=== PATIENT | male | born 1965 | race Caucasian/White ===

== ENCOUNTER 2023-11-11 12:36 | Outpatient (CLI) | payer BC, SELFPAY ==
--- NOTE | 2023-11-11 12:44 | XR_ITS ---
FINAL REPORT CLINICAL HISTORY: Foot Pain COMPARISON: None FINDINGS: AP, oblique and lateral views of the right foot were obtained. There is no prior exam for comparison. There is no acute fracture or dislocation. There are side plates and screws bridging the first metatarsal phalangeal joint. The joint space is visible at this point. Soft tissue swelling is noted. Soft tissues are normal. IMPRESSION: Postoperative changes of the right first metatarsal phalangeal joint as described above. Soft tissue swelling is present. Reviewed, Interpreted and Dictated by Tomas Brown MD Transcribed by Emilia Rosales Authenticated and [facility]
--- NOTE | 2023-11-11 12:44 | XR_ITS ---
FINAL REPORT CLINICAL HISTORY: Foot Pain COMPARISON: None FINDINGS: AP, oblique and lateral views of the left foot were obtained. There is no prior exam for comparison. There is no acute fracture or dislocation. There is moderate hypertrophic change of the first metatarsal phalangeal joint. Soft tissues are normal. IMPRESSION: No acute osseous abnormality of the left foot. Moderate hypertrophic change of the first MTP joint. Reviewed, Interpreted and Dictated by Tomas Brown MD Transcribed by Emilia Rosales Authenticated and [facility]
--- NOTE | 2023-11-11 15:26 | XR_ITS ---
FINAL REPORT TECHNIQUE: Chest PA & Lateral CLINICAL HISTORY: Pre-Op Testing COMPARISON: None FINDINGS: 2 views of the chest were performed. The heart size is normal. The mediastinum is within normal limits. There is no acute cardiopulmonary process. There are no pleural effusions. There is no pneumothorax. The bony thorax appears intact. IMPRESSION: No acute cardiopulmonary process. Reviewed, Interpreted and Dictated by Tomas Brown MD Transcribed by Emilia Rosales Authenticated and . [facility]
[2023-11-11 15:30] LABS: Basophils % 0.5 % (0.1-2.0); Eosinophils # 0.2 K/mm3 (0.0-0.4); Eosinophils % 3.9 % (0.1-12.0); Hematocrit 41.8 % (42.0-52.0); Hemoglobin 14.8 g/dL (14.1-18.0); Lymphocytes # 1.6 K/mm3 (0.7-4.5); Lymphocytes % 27.4 % (10-50); Mean Corpuscular HGB Conc 35.3 g/dL (31.8-35.4); Mean Corpuscular Volume 84.9 fl (80-94); Mean Platelet Volume 8.7 fl (7.4-10.4); Monocytes # 0.3 K/mm3 (0.1-1.0); Monocytes % 5.4 % (1.7-9.3); Neutrophils # 3.7 K/mm3 (1.8-7.8); Neutrophils % 62.8 % (37.0-80.0); Platelet Count 286 K/mm3 (142-424); Red Blood Count 4.92 M/mm3 (4.60-6.20); Red Cell Distribution Width 14.3 % (11.5-17.5); White Blood Count 5.8 K/mm3 (4.8-10.8)
--- NOTE | 2023-11-11 16:01 | ECG_ITS ---
APPROVED REPORT Exam: Resting ECG HR:63 bpm ECG Measurements Heart Rate 63 AXES PA 170 P 53 QRSd 106 QRS 35 QT 418 T 52 QTc 425 Conclusion SINUS RHYTHM LOW QRS VOLTAGE IN PRECORDIAL LEADS [QRS DEFLECTION < 1.0 mV IN CHEST LEADS] INCOMPLETE RIGHT BUNDLE BRANCH BLOCK [90+ ms QRS DURATION, TERMINAL R IN V1/V2, 40+ ms S IN I/aVL/V4/V5/V6] BORDERLINE ECG UNCONFIRMED REPORT Electronically signed by : Randolph Herrera MD 11/12/2023 20:10:09
[2023-11-11 16:26] LABS: Alanine Aminotransferase 30 U/L (12-78); Albumin Level 4.2 g/dl (3.5-5.0); Albumin/Globulin Ratio 1.2 (1.1-1.8); Alkaline Phosphatase 64 U/L (38-126); Anion Gap 9.5 mEq/L (5-15); Aspartate Amino Transferase 32 U/L (17-59); Bilirubin,Total 0.5 mg/dl (0.2-1.3); Blood Urea Nitrogen 18 mg/dl (9-20); Calcium 9.4 mg/dl (8.4-10.2); Carbon Dioxide 31 mmol/L (22.0-30.0); Chloride 102 mmol/L (98-107); Estimated Glomerular Filt Rate 76 ml/min (>60); GFR (African American) 92 ML/MIN (>60); Globulin 3.4 g/dL (1.3-3.2); Glucose 100 mg/dl (74-100); Potassium 4.5 mmoL/L (3.5-5.1); Sodium 138 mmol/L (136-145); Total Protein,Serum 7.6 g/dl (6.3-8.2); Uric Acid 5.6 mg/dl (3.5-8.5)
[2023-11-11 16:32] LABS: C-Reactive Protein 2.7 mg/L (0-4)
[2023-11-11 16:39] LABS: Erythrocyte Sedimentation Rate 22 mm/hr (0-20)
[2023-11-11 17:00] LABS: Thyroid Stimulating Hormone 1.68 uIU/mL (0.465-4.68)
[2023-11-11 17:36] LABS: Vitamin B12 746 pg/mL (239-931)
[2023-11-12 07:41] LABS: RA Latex Turbid. <10.0 IU/mL (<14.0)
[2023-11-12 17:34] LABS: Antinuclear Antibodies, IFA Negative (.)
[2023-11-18 19:08] LABS: 1,25 Dihydroxy Vitamin D 43 pg/mL (.); 1,25-Dihydroxy, Vitamin D-2 <10 pg/mL (.); 1,25-Dihydroxy, Vitamin D-3 43 pg/mL (.)
== END 2023-11-11 23:59 ==
PROVIDERS: PCP Family Medicine; Visit Provider Podiatrist
DX: Z01.818 Encounter for other preprocedural examination (principal); M79.672 Pain in left foot; M79.671 Pain in right foot; R60.9 Edema, unspecified
CPT/HCPCS: 36415; 71046; 73630; 80053; 82607; 82652; 82746; 84443; 84550; 85025; 85651; 86038; 86140; 86431; 93005

== ENCOUNTER 2023-11-28 10:59 | Day surgery (SDC) | payer BC, SELFPAY ==
[2023-11-26 10:35] VITALS: BMI 47.3
[2023-11-28] VITALS (9 sets, daily range): BP systolic 140–194; BP diastolic 60–84; PULSE 66–74; RESP 14–19; TEMP 35.9–37.3; O2SAT 92–100
[2023-11-28] MEDS: LACTATED RINGERS 1000ML 1,000 ML 100 ML IV (11:31)
--- NOTE | 2023-11-28 12:48 | P.PNANES_ITS ---
[facility] Disclaimer: The information contained in this section may have been updated after the patient was seen, as this information can be updated by other users. Medical History Sleep apnea Seasonal allergies Bipolar affect, depressed Acid reflux Arthritis Hyperlipidemia Hypertension Surgical History History of cardiac cath H/O colonoscopy History of esophagogastroduodenoscopy (EGD) H/O foot surgery H/O knee surgery Family History Grandfather Heart attack Mother Heart disease Father Cancer Sister Diabetes Brother Diabetes Grandmother Cancer Social History (Updated 11/28/23 @ 11:31 by Gayla Zhao RN) Smoking Status: Former smoker years smoked: 20 smoking status stop date: 11/14/05 alcohol intake: former substance use type: denies use current occupational status: disabled Travel in the last 8 weeks: None household members: spouse housing: house lives independently: Yes marital status: [facility] Anesthesia Checklist Patient Identification Patient Identification: Arm Band, Family and Verbal (Name & ) Structural Data Admitted From: Home Planned Operative Procedure/s: Removal of harware Rt. foot, bone biopsy Consent for Planned Operative Procedure(s) Verified: Yes Verified Documents: Surgical Consent and History and Physical NPO Status Verified Time NPO: 22:30 Chart Verification Results Verified: CBC, BMP, ECG and Chest Xray Additional verifications Patient : No Anesthesia Reactions: No Hx Blood Transfusions: No Blood Transfusion Reaction: No Cardiovascular Assessment Heart Sounds: S1 & S2 Pulse Rhythm: Irregular Peripheral Edema: Yes (RT. Foot) Airway Assessment Mallampati Score:: Class III C-Spine Mobility Assessed: Yes (FROM) TMJ Mobility Assessed: Yes Dentition: Good Dentition (Nothing loose per pt.) Neurological Assessment Level of Consciousness: Awake, Alert, Appropriate and Follows Commands Hx Seizures: No Numbness or tingling in extremities: No Anesthesia Plan Anesthesia Risk discussed: Yes Anesthesia Plan: Verified ASA Class: III Anesthesia Type: General
[2023-11-28] MEDS: BUPIVACAINE 0.5% 30ML VIAL 150 MG (13:18)
[2023-11-28] MEDS: VANCOMYCIN 1000MG VIAL 1000 MG (13:50)
[2023-11-28] MEDS: GENTAMICIN 80 MG/2 ML VIAL (13:50)
--- NOTE | 2023-11-28 14:06 | EXP.OP.NOTE ---
Date of procedure: 11/28/23 Pre-op Diagnosis:: Right first MTPJ fusion nonunion Right foot pain Painful retained orthopedic hardware Post-op Diagnosis:: Same Procedure performed:: Planned two staged surgery: Stage 1: Right foot hardware removal Right open bone biopsy Surgeon:: Ligia Walton DPM DEALER DEVELOPMENT MANAGER:: Other (Cindy Whitaker) Anesthesia: GETA and local (30cc 0.5% marcaine plain) Estimated blood loss (mL): 20 Clinical Note:: Patient is a 58-year-old male who presents for hard removal and open bone biopsy. He had surgery by Dr Buddy Daniel on 12/21/22: s/p R 1st MPJ arthrodesis revision for non-union. The site still has not fused. He has tried prolonged immobilization, medical optimization, revision of the nonunion, bone stimulator, vitamin D supplements and he still has not healed. Patient is not diabetic and does not smoke. Discussed the plan to do staged surgery. Stage I will include hard removal and bone biopsy. Stage II will depend on results of the biopsy. If no infection, plan second stage would include revision of the fusion nonunion with graft application. The patient has been instructed on the planned procedure, all risk versus benefits of the procedure to include bleeding, infection, nerve and blood vessel damage, need for further surgery, delay in healing of soft tissue or bone, failure of bones to heal, non-union, mal-union, prolonged/permanent pain and recovery, prolonged/permanent swelling, CRPS/RSD, DVT/PE and anesthetic complications including . Discussed increased risks of non-union, infection/wound dehiscence risk due to multiple surgeries thru the same incision. No guarantees were given. All questions fully answered. The patient verbalized understanding and agreed to proceed with surgery. Written consent was obtained. Operative findings:: Some fibrotic scar tissue noted. Patient has had 2 prior right foot surgeries to this area. [place] plate intact with 6 locking and 1 nonlocking screw. Plate and screws were removed in total without complication. There was some incorporation of a 5 mm [place] bone graft wedge. There was a partial union of the dorsal cortex at the level of the first MTPJ. The central and plantar aspect of the joint was not fused. There was no bleeding at this level. Bone was soft at the level of the graft and union site. The screw holes were harder bone and did not have any signs of infection. No purulence, malodor or deep signs of infection noted. Operative note:: On this date and time patient was deemed an appropriate surgical candidate. With informed consent signed, the patient was taken to the operating theater. The patient was positioned supine. General anesthesia was induced. Tourniquet was applied to the right mid-calf. The right lower extremity was prepped and drapped in normal sterile fashion. The tourniquet was inflated at 225mmHg. Right 1st MTPJ hardware removal: Attention was directed to the right 1st MPJ, where a dorsal linear incision was mapped out over the joint over previous scar tissue. Dissection was carried full-thickness, with care to maintain surgical hemostasis. The hardware was visualized. The screws and anatomic locking plate were removed and sent to the lab for culture. No signs of infection noted to the hardware. The soft tissue appeared healthy with no reyez or necrotic tissue noted. There was no purulence or malodor appreciated. No periwound erythema or palpable lymph nodes. Right Foot Open Bone Biopsy: The proximal 1st metatarsal and distal phalanx bone was evaluated and noted to be hard in texture normal color. A piece of it to the bone was removed with a rongeur and sent to pathology. The wound was flushed with copious amounts of normal sterile saline mixed with gentamicin irrigation. A piece of the proximal first metatarsal phalangeal joint (MTPJ) was sent as a bone culture and another piece of bone was taken as a bone biopsy for pathology. A piece of the distal first metatarsal phalangeal joint (MTPJ) was sent as a bone culture and another piece of bone was taken as a bone biopsy for pathology. Bone at the fusion/graft site was noted to be soft and easily crumbled. Vancomycin powder was then applied along the bone. The and deep subcutaneous tissue layer was repaired with 3-0 Vicryl and 3-0 Nylon was used to close skin in an interrupted fashion. Ankle block given with 30 cc 0.5% marcaine plain. The tourniquet was deflated after 41 mins and immediate hyperemic response was noted to the digits. The wounds were cleansed. Xeroform and a dry sterile dressing was then applied to the right foot. A below-knee posterior splint was then applied. The patient was awoken from anesthesia and transferred to recovery with vital signs stable and neurovascular status intact. Patient tolerated procedure and anesthesia well without complication Materials: 1 g vancomycin powder Discharge/Plan: D/C home today when ready and vital signs stable. Patient is to maintain dressing clean dry and intact. Ice to the top of the foot and elevate on two pillows. Non weight bearing to the right lower extremity with DME assistance (crutches, walker, rolling knee scooter) while in the splint. Okay to PWB to right heel in fracture boot with DME. Rx for [place] 7.5, gabapentin, vitamin D given. Obtain post op films, right foot, 3 views. Follow up in one week. Tourniquet time (min): 41 Condition: stable Disposition: same day Specimens:: Path: Right proximal metatarsal Right distal phalanx Right first MPJ proximal Right first MPJ distal Right first MPJ proximal BCx Right first MPJ distal BCx Complications:: None
--- NOTE | 2023-11-28 14:21 | EXP.ANES.I ---
[facility] Anesthesia Record Part I Anesthesia Record I Intake, IV Amount: 800 Hydration: Adequate Estimated blood loss (mL): 10 Urine output (mL): 0 Blood Products used (#): none Blood Pressure: 159/60 SaO2: 92 Pulse Rate: 74 Airway Patency: Patent Respiratory Rate: 18 Temperature: 96.6 F Patient is:: Awake (Talking), Nasal O2 (4L/min NC), Oral/Nasal airway (34FR nasal trumpet Left nare) and Stable Stable to PACU at:: 14:13
[2023-11-28] MEDS: ONDANSETRON 4MG/2ML VIAL 4 MG IV (14:25)
[2023-11-28] MEDS: MORPHINE 2MG/ML SYRINGE 1 MG IV (14:28)
--- NOTE | 2023-12-02 16:28 | P.PNANES_ITS ---
[facility] Anesthesia Record Part II Anesthesia Record Part II Discharge Time: 14:38 Destination: Surgical Day Care (OP Surgery) PACU nurse assessment reviewed?: Yes Patient Condition:: Good Anesthesia Complications:: None Swallowing reflex intact?: Yes Airway Patency: Patent Cyanosis?: No Blood Pressure: 145/72 SaO2: 100 Respiratory Rate: 18 Pulse Rate: 68 Temperature: 97.2 F Mental Status: Alert & Oriented Pain level:: 0 Nausea and/or vomitting:: None Intake, IV Amount: 0 Hydration: Adequate
[2023-12-02 16:29] VITALS: BP 145/72; PULSE 68; RESP 18; TEMP 36.2; O2SAT 100
== END 2023-11-28 15:09 | disposition home or self-care (01) ==
PROVIDERS: Visit Provider Podiatrist
PROC: (CPT 20680; principal; 2023-11-28 12:30)
DX: M96.0 Pseudarthrosis after fusion or arthrodesis (principal); T84.84XA Pain due to internal orthopedic prosthetic devices, implants and grafts, initial encounter; E55.9 Vitamin D deficiency, unspecified; M79.671 Pain in right foot; M19.071 Primary osteoarthritis, right ankle and foot; Z79.899 Other long term (current) drug therapy
CPT/HCPCS: 20680; 20240; 87070; 87205; 96374; J2405; J3370

== ENCOUNTER 2024-01-01 10:23 | Day surgery (SDC) | payer OTHER, SELFPAY ==
[2024-01-01] VITALS (10 sets, daily range): BP systolic 109–183; BP diastolic 61–101; PULSE 60–79; RESP 18–21; TEMP 36.6–43; O2SAT 93–97; BMI 48.2
[2024-01-01] MEDS: LACTATED RINGERS 1000ML 1,000 ML 100 ML IV (11:09)
[2024-01-01 11:32] LABS: Basophils # 0.1 K/mm3 (0-0.2); Eosinophils # 0.3 K/mm3 (0.0-0.4); Eosinophils % 5.2 % (0.1-12.0); Hematocrit 40.1 % (42.0-52.0); Hemoglobin 13.7 g/dL (14.1-18.0); Lymphocytes # 1.5 K/mm3 (0.7-4.5); Lymphocytes % 31.3 % (10-50); Mean Corpuscular HGB Conc 34.2 g/dL (31.8-35.4); Mean Corpuscular Hemoglobin 30.2 pg (27.0-31.2); Mean Corpuscular Volume 88.2 fl (80-94); Mean Platelet Volume 8.3 fl (7.4-10.4); Monocytes # 0.3 K/mm3 (0.1-1.0); Monocytes % 5.7 % (1.7-9.3); Neutrophils # 2.8 K/mm3 (1.8-7.8); Neutrophils % 56.8 % (37.0-80.0); Platelet Count 249 K/mm3 (142-424); Red Blood Count 4.55 M/mm3 (4.60-6.20); Red Cell Distribution Width 14.5 % (11.5-17.5); White Blood Count 4.9 K/mm3 (4.8-10.8)
[2024-01-01 11:40] LABS: Chloride 105 mmol/L (98-107)
[2024-01-01 11:41] LABS: Potassium 4.1 mmoL/L (3.5-5.1); Sodium 136 mmol/L (136-145)
[2024-01-01 11:44] LABS: Anion Gap 5.1 mEq/L (5-15); Blood Urea Nitrogen 19 mg/dl (9-20); Calcium 9.1 mg/dl (8.4-10.2); Carbon Dioxide 30 mmol/L (22.0-30.0); Creatinine Clearance Estimated 90 mL/min (50-200); Estimated Glomerular Filt Rate 86 ml/min (>60); GFR (African American) 104 ML/MIN (>60); Glucose 119 mg/dl (74-100)
--- NOTE | 2024-01-01 13:11 | P.PNANES_ITS ---
[facility] Disclaimer: The information contained in this section may have been updated after the patient was seen, as this information can be updated by other users. Medical History Sleep apnea Seasonal allergies Bipolar affect, depressed Acid reflux Arthritis Hyperlipidemia Hypertension Surgical History History of cardiac cath H/O colonoscopy History of esophagogastroduodenoscopy (EGD) H/O foot surgery H/O knee surgery Family History Grandfather Heart attack Mother Heart disease Father Cancer Sister Diabetes Brother Diabetes Grandmother Cancer Social History Smoking Status: Former smoker years smoked: 20 smoking status stop date: 11/14/05 alcohol intake: former substance use type: denies use current occupational status: disabled Travel in the last 8 weeks: None household members: spouse housing: house lives independently: Yes marital status: [facility] Anesthesia Checklist Patient Identification Patient Identification: Arm Band and Verbal (Name & ) Structural Data Admitted From: Home Planned Operative Procedure/s: MPJ joint fusion Consent for Planned Operative Procedure(s) Verified: Yes NPO Status Verified Time NPO: 00:00 Chart Verification Results Verified: CBC, BMP and ECG Additional verifications Anesthesia Reactions: No Hx Blood Transfusions: No Blood Transfusion Reaction: No Airway Assessment Mallampati Score:: Class IV C-Spine Mobility Assessed: Yes TMJ Mobility Assessed: Yes Dentition: Good Dentition Neurological Assessment Level of Consciousness: Awake Hx Seizures: No Numbness or tingling in extremities: No Anesthesia Plan Anesthesia Risk discussed: Yes Anesthesia Plan: Verified ASA Class: III Anesthesia Type: General w/block
--- NOTE | 2024-01-01 15:30 | XR_ITS ---
FINAL REPORT CLINICAL HISTORY: Post op fusion revision COMPARISON: 11/11/2023 FINDINGS: RIGHT FOOT: Three views of the right foot were obtained. There are postoperative changes from fusion of the first MTP with a screw plate and multiple screws. There is a new wire present in the first digit. There is no acute fracture or dislocation. The joint spaces are intact. There is no soft tissue abnormality. IMPRESSION: Postoperative changes as above without acute bony abnormality. Reviewed, Interpreted and Dictated by Tay Ramos III, MD Transcribed by Roxana Rodriguez Authenticated and [facility]
--- NOTE | 2024-01-01 16:10 | XR_ITS ---
FINAL REPORT CLINICAL HISTORY: ORIF LT FOOT 0.41 min 0.95 mGy COMPARISON: None FINDINGS: FLUOROSCOPY LESS THAN 1 HOUR HISTORY: ORIF right first metatarsal and proximal phalanx great toe FINDINGS: Fluoroscopic guidance was provided for ORIF great toe. 5 spot films were obtained. 41 seconds of fluoroscopy time were used with a dosage of 0.95 mGy. IMPRESSION: As above. Reviewed, Interpreted and Dictated by Tay Ramos III, MD Transcribed by Emilia Rosales Authenticated and [facility]
--- NOTE | 2024-01-01 16:28 | EXP.ANES.I ---
[facility] Anesthesia Record Part I Anesthesia Record I Intake, IV Amount: 1,000 Hydration: Adequate Estimated blood loss (mL): 40 Urine output (mL): 0 Blood Pressure: 156/97 SaO2: 93 Pulse Rate: 79 Airway Patency: Patent Respiratory Rate: 21 Temperature: 97.8 F Patient is:: Awake Stable to PACU at:: 16:25
--- NOTE | 2024-01-01 16:32 | EXP.OP.NOTE ---
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 This is a planned staged procedure. Stage I included hardware removal and open bone biopsies. Biopsies negative for infection and AVN. Proceed with stage two: revision right 1st MTPJ arthrodesis, autograft bone harvest. Discussed increased incision wound dehiscence and infection risk secondary to multiple surgeries through same incision site. The patient has been instructed on the planned procedure, all risk versus benefits of the procedure to include bleeding, infection, nerve and blood vessel damage, need for further surgery, delay in healing of soft tissue or bone, failure of bones to heal, non-union, mal-union, prolonged/permanent pain and recovery, prolonged/permanent swelling, CRPS/RSD, DVT/PE and anesthetic complications including . Discussed increased risks of non-union, infection/wound dehiscence risk due to multiple surgeries thru the same incision. No guarantees were given. All questions fully answered. The patient verbalized understanding and agreed to proceed with surgery. Written consent was obtained. Operative findings:: Right first metatarsal phalangeal joint had significant fibrosis and scarring secondary to 3 prior surgeries. No purulence, malodor, drainage or other signs of infection noted. Soft tissue was adhered so there was no definitive tissue layers. Nerve was entrapped into the medial proximal tissue over the metatarsal neck and proximally. Soft tissue was also adhered to the level of the bone. Bone had several areas of defects from prior plate and screw fixation. These areas were curetted out and no signs of bone infection appreciated. Revisional surgery performed with repair nonunion and first MPJ fusion revision. Once the joint was prepared prior to insertion of any autograft/allograft, there was a 1.1 cm bone defect/bone space between the proximal phalanx and distal metatarsal when the first ray was held out to length/lined up with the second toe. At closure, skin was fragile but no dusky skin or necrosis noted. It was medically necessary to utilize structural graft to provide length to the short first ray, autograft due to the nonunion and allograft to fill in defects. Modifier: This was a planned staged procedure within the postop period from 11/27/23, s/p Stage 1: Right foot hardware removal, Right open bone biopsy. Modifier: this case took 45 minutes longer than normal due to the revisional nature of the procedure, significant fibrosis and scar tissue, defect in the bone secondary to multiple procedures warranting both structural allograft and autograft correction to lengthen the first ray (and fill in the holes in the bones from defect left from prior plate/screw systems), patient's body habitus with increased complexity of the skin dissection/closure due to more tissue volume/scar fibrosis. Operative note:: On this date and time patient was deemed an appropriate surgical candidate. With informed consent signed, the patient was taken to the operating theater after regional popliteal nerve block by anesthesia. Patient was positioned supine. General anesthesia was induced. IV Ancef given. Tourniquet was applied to the right mid-calf @225mmHg. The right lower extremity was prepped and draped in normal sterile fashion. Right calcaneal autograft bone harvest: Attention was directed to the lateral foot where intraoperative fluoroscopy was utilized to map out a percutaneous vision on the lateral calcaneus. Dissection was carried down full-thickness to the heel. A bone graft harvest system utilized to take 10 mm of bone from the calcaneus. Area was flushed. Allofiber used to backfill the area. Nylon and barbara-guard used to reapproximate the skin. Right 1st MTPJ Arthrodesis revision: Attention was directed to the 1st metatarsophalangeal joint (MPJ), where a dorsal linear incision was mapped out over prior scar, well healed surgical incision from proximal HIPJ to proximal on the met shaft. The tourniquet was inflated at 225 mmHg. Full-thickness dissection with care taken to maintain surgical hemostasis and safely retract neurovascular structures. Nerve entrapment, see op findings. Dissection was then carried through fibrotic scar tissue, deep fascia linearly over the 1st MPJ, exposing the prior surgical site. No cartilage on the metatarsal head or proximal phalanx. Some lateral spurring noted to the base of the proximal phalanx. It was removed with a rongeur. The sesamoids were noted to be arthritic. Soft tissue surrounding the first MPJ was released. The soft tissue was very adhered down to the bone due to the revisional nature of the surgery. A McGlamry elevator was used to pass underneath the metatarsal heads releasing more of the contracture. Utilizing hand instrumentation in the form of ronguer and curette, fibrotic tissue over the bone, spurring and nonviable distal metatarsal and proximal phalanx bone was resected. The distal metatarsal and proximal phalanx were prepped down to the level of good healthy bleeding bone. Wound was flushed with saline. Utilizing a 1.7mm drill, the bone was fenestrated to the level of healthy bleeding bone. Right 1st MTPJ non-union repair/revision: Due to the revisional nature of the surgery, care taken at the nonunion site. A 12 mm wedge allograft was soaked in the patient's blood then was inserted at the prepped joint site between the metatarsal and proximal phalanx. The autograft obtained from the calcaneus was transected in half. Half was inserted between the allograft and the metatarsal, the remaining half was inserted between the proximal phalanx and the allograft. At this point, the joint was reduced and temporary fixation inserted. Position was checked under intra-op fluoroscopy. Due to the defect in the patient's bone from the other plate and screw systems, a long revisional plate was inserted in standard technique. LO graft fibers were packed into the defect from the other screw sites. Position checked under intraoperative fluoroscopy. 3.5 mm locking screws added distally. A nonlocking screw was added to the proximal plate which did offer some compression. However due to the allograft and autograft structural wedge between the metatarsal and proximal phalanx, complete bone on bone apposition and complete compression across the area was not expected. A bridge plate technique was utilized to stabilize the graft. Remaining screws were inserted in standard technique without complication. A 1.2 mm K wire was inserted from the tip of the toe through the distal and proximal phalanx through the graft and into the metatarsal. The wire served to stabilize the graft from shifting medial/laterally or dorsally displacing. Final x-rays utilizing AP/MO and lateral views checked on intraoperative fluoroscopy and position of the reduction, fusion site, hardware was all deemed to be appropriate and stable. Any remaining allograft/autograft packed into the nonunion site. 3 cc of patient's blood was added directly over nonunion site. Vicryl was used to close deep and subcutaneous tissue in a running fashion. Nylon was used to skin in an interrupted Donati Allgower fashion. Skin cleansed. Application of posterior splint: The tourniquet was deflated after 130 mins and immediate hyperemic response was noted to the digits. The wounds were cleansed. Xeroform, dry sterile dressing was then applied along with below knee posterior splint. The patient was awoken from anesthesia and transferred to recovery with vital signs stable and neurovascular status intact. Patient tolerated procedure and anesthesia well without complication Materials: Vilex: right anatomic 1st MPJ revision plate, 3.5mm locking screws x7, 3.5mm non locking screw x1, 1.2mm K wire x1, 2cc [employer], [employer] 12mm allopure wedge Discharge/Plan: D/C home today when ready and vital signs stable. Patient is to maintain dressing clean dry and intact. Ice top of right foot and elevate on two pillows. Polar pack behind knee. NWB to the RLE with DME. Has RKS. Rx for [place] given. Continue vitamin D supplement. Obtain post op films, right foot, 3 views. Follow up with me in 1 week. Tourniquet time (min): 130 Condition: stable Disposition: same day Complications:: None
[2024-01-01] MEDS: HYDROMORPHONE 2MG/ML SYRINGE 0.5 MG IV ×2 (16:50→17:00)
--- NOTE | 2024-01-02 11:09 | P.PNANES_ITS ---
[facility] Anesthesia Record Part II Anesthesia Record Part II Discharge Time: 16:45 Destination: Surgical Day Care (OP Surgery) PACU nurse assessment reviewed?: Yes Patient Condition:: Good Anesthesia Complications:: None Swallowing reflex intact?: Yes Airway Patency: Patent Cyanosis?: No Blood Pressure: 128/101 SaO2: 94 Respiratory Rate: 18 Pulse Rate: 69 Temperature: 97.8 F Mental Status: Alert & Oriented Pain level:: 0 Nausea and/or vomitting:: None Intake, IV Amount: 0 Hydration: Adequate
[2024-01-02 11:11] VITALS: BP 128/101; PULSE 69; RESP 18; TEMP 36.6; O2SAT 94
== END 2024-01-01 17:20 | disposition home or self-care (01) ==
PROVIDERS: PCP Family Medicine; Visit Provider Podiatrist
PROC: (CPT 28750; principal; 2024-01-01 13:00)
DX: M96.0 Pseudarthrosis after fusion or arthrodesis (principal); I10 Essential (primary) hypertension; Z79.899 Other long term (current) drug therapy; M79.671 Pain in right foot; Z87.891 Personal history of nicotine dependence; E78.5 Hyperlipidemia, unspecified; E55.9 Vitamin D deficiency, unspecified; E66.01 Morbid (severe) obesity due to excess calories; Z68.41 Body mass index [BMI] 40.0-44.9, adult
CPT/HCPCS: 28750; 73620; 73630; 76000; 80048; 85025; 96374; C1713; C1762; C1776; J0131; J2405

== ENCOUNTER 2024-01-30 10:11 | Outpatient (CLI) | payer OTHER, SELFPAY ==
--- NOTE | 2024-01-30 10:20 | XR_ITS ---
FINAL REPORT CLINICAL HISTORY: Foot Pain surgery x 4 weeks ago COMPARISON: 01/01/2024 FINDINGS: RIGHT FOOT: Three views of the right foot were obtained. The patient has undergone fusion of the first MTP joint with a plate and screws present as seen on the prior film of December 31. There is a K wire which extends through the first MTP joint as well. The alignment is stable. There is no acute fracture or dislocation. The joint spaces are otherwise intact. There is no soft tissue abnormality. IMPRESSION: Fusion first MTP joint as described, with a K wire through the first digit as well. The alignment is stable since the prior film of December 31. Reviewed, Interpreted and Dictated by Tay Ramos III, MD Transcribed by Emilia Rosales Authenticated and [facility]
== END 2024-01-30 23:59 | disposition home or self-care (01) ==
LOC: RAD 10:12
PROVIDERS: PCP Family Medicine; Visit Provider Podiatrist
DX: M79.671 Pain in right foot (principal)
CPT/HCPCS: 73630

== ENCOUNTER 2024-02-20 09:31 | Outpatient (CLI) | payer OTHER, SELFPAY ==
--- NOTE | 2024-02-20 09:34 | XR_ITS ---
FINAL REPORT CLINICAL HISTORY: Foot Pain COMPARISON: 01/30/2024 FINDINGS: RIGHT FOOT 3 views of the right foot were obtained. There has been interval removal of the K wire securing the first digit ray. Sideplate and screws are seen fusing the first metatarsal phalangeal joint with intact hardware. There appears to be a segment of bone graft. There is no acute fracture or dislocation. There is a minimal Soraida deformity. Soft tissues are unremarkable. IMPRESSION: No acute bony abnormality. Soraida deformity. Postoperative changes as above. Reviewed, Interpreted and Dictated by Tomas Brown MD Transcribed by Roxana Rodriguez Authenticated and [facility]
== END 2024-02-20 23:59 | disposition home or self-care (01) ==
LOC: RAD 09:32
PROVIDERS: PCP Family Medicine; Visit Provider Podiatrist
DX: M79.671 Pain in right foot (principal)
CPT/HCPCS: 73630

== ENCOUNTER 2024-03-24 09:32 | Outpatient (CLI) | payer OTHER, SELFPAY ==
--- NOTE | 2024-03-24 09:39 | XR_ITS ---
FINAL REPORT CLINICAL HISTORY: foot pain f/u COMPARISON: 02/20/2024 FINDINGS: RIGHT FOOT: Three views of the right foot were obtained. Postoperative changes of the left first digit remain present, with orthopedic plates and screws. The alignment is stable. There has been fusion of the IP joint. There is no acute fracture or dislocation. Mild degenerative changes present. There is no soft tissue abnormality. IMPRESSION: Postoperative changes remain present, stable since the prior exam. Reviewed, Interpreted and Dictated by Tay Ramos III, MD Transcribed by Emilia Rosales Authenticated and [facility]
== END 2024-03-24 23:59 | disposition home or self-care (01) ==
LOC: RAD 09:34
PROVIDERS: PCP Family Medicine; Visit Provider Podiatrist
DX: M79.671 Pain in right foot (principal)
CPT/HCPCS: 73630

== ENCOUNTER 2024-04-23 10:36 | Outpatient (CLI) | payer OTHER, SELFPAY ==
--- NOTE | 2024-04-23 10:36 | CT_ITS ---
FINAL REPORT TECHNIQUE: Thin section axial CT images with coronal and sagittal reformats were performed. This study was performed with techniques to keep radiation doses as low as reasonably achievable (ALARA). Individualized dose reduction techniques using automated exposure control or adjustment of mA and/or kV according to the patient''s size were employed. CLINICAL HISTORY: access for nonunion COMPARISON: None FINDINGS: Sagittal reconstruction images demonstrated dorsal sideplate and screws securing the distal portion of the 1st metatarsal to the 1st proximal phalanx. Interbody fusion graft is seen within the 1st metatarsal phalangeal joint space. The margins of the graft remain visible. There is no definite bridging callus seen. There are mild hypertrophic changes of the posterior subtalar joint. There is a small exophytic focus arising from the anterior aspect of the distal fibular cortex probably related to small exostosis measuring 6 mm and best seen on image 36 of series 602. IMPRESSION: Fusion hardware bridging the 1st metatarsal phalangeal joint with visualized margins of the graft. No definite bridging callus formation seen. Reviewed, Interpreted and Dictated by Tomas Brown MD Transcribed by Roxana Rodriguez Authenticated and [facility]
== END 2024-04-23 23:59 | disposition home or self-care (01) ==
LOC: RAD 10:36
PROVIDERS: PCP Podiatrist; Visit Provider Podiatrist
DX: M96.0 Pseudarthrosis after fusion or arthrodesis (principal); T84.9XXS Unspecified complication of internal orthopedic prosthetic device, implant and graft, sequela
CPT/HCPCS: 73700

== ENCOUNTER 2024-06-22 09:29 | Outpatient (CLI) | payer OTHER, SELFPAY ==
--- NOTE | 2024-06-22 09:38 | XR_ITS ---
FINAL REPORT CLINICAL HISTORY: foot pain COMPARISON: 03/24/2024 FINDINGS: Right foot Three views were obtained. There are sideplate and screws securing the 1st proximal phalanx of the 1st metatarsal, similar to previous. Bony spacer is seen in the 1st metatarsophalangeal joint. IMPRESSION: Postsurgical changes as above. Reviewed, Interpreted and Dictated by Tomas Brown MD Transcribed by Mily Sadler Authenticated and [facility]
[2024-06-22 12:22] LABS: Basophils % 0.8 % (0.1-2.0); Eosinophils # 0.3 K/mm3 (0.0-0.4); Eosinophils % 6.6 % (0.1-12.0); Hematocrit 42.4 % (42.0-52.0); Hemoglobin 14.1 g/dL (14.1-18.0); Lymphocytes # 1.2 K/mm3 (0.7-4.5); Lymphocytes % 31.2 % (10-50); Mean Corpuscular HGB Conc 33.3 g/dL (31.8-35.4); Mean Corpuscular Hemoglobin 30.8 pg (27.0-31.2); Mean Corpuscular Volume 92.5 fl (80-94); Mean Platelet Volume 7.7 fl (7.4-10.4); Monocytes # 0.3 K/mm3 (0.1-1.0); Monocytes % 6.3 % (1.7-9.3); Neutrophils # 2.2 K/mm3 (1.8-7.8); Neutrophils % 55.2 % (37.0-80.0); Platelet Count 278 K/mm3 (142-424); Red Blood Count 4.58 M/mm3 (4.60-6.20)
[2024-06-22 12:46] LABS: Erythrocyte Sedimentation Rate 18 mm/hr (0-20)
[2024-06-22 12:50] LABS: Alanine Aminotransferase 32 U/L (12-78); Alkaline Phosphatase 52 U/L (38-126); Aspartate Amino Transferase 34 U/L (17-59); Bilirubin,Total 0.5 mg/dl (0.2-1.3); Blood Urea Nitrogen 23 mg/dl (9-20); Calcium 9.4 mg/dl (8.4-10.2); Chloride 104 mmol/L (98-107); Estimated Glomerular Filt Rate 68 ml/min (>60); GFR (African American) 83 ML/MIN (>60); Glucose 117 mg/dl (74-100); Potassium 4.3 mmoL/L (3.5-5.1); Sodium 136 mmol/L (136-145); Total Protein,Serum 7.5 g/dl (6.3-8.2)
[2024-06-22 12:53] LABS: Albumin Level 4.2 g/dl (3.5-5.0); Albumin/Globulin Ratio 1.3 (1.1-1.8); Anion Gap 6.3 mEq/L (5-15); Carbon Dioxide 30 mmol/L (22.0-30.0); Globulin 3.3 g/dL (1.3-3.2)
[2024-06-22 12:56] LABS: C-Reactive Protein 1.2 mg/L (0-4)
[2024-06-22 14:06] LABS: Hemoglobin A1C 5.7 % (4.0-6.0)
[2024-07-17 00:10] LABS: 1,25 Dihydroxy Vitamin D 55 pg/mL (.); 1,25-Dihydroxy, Vitamin D-2 <10 pg/mL (.); 1,25-Dihydroxy, Vitamin D-3 55 pg/mL (.)
== END 2024-06-22 23:59 | disposition home or self-care (01) ==
PROVIDERS: PCP Family Medicine; Visit Provider Podiatrist
DX: M79.671 Pain in right foot (principal); M96.0 Pseudarthrosis after fusion or arthrodesis; M25.474 Effusion, right foot; R73.09 Other abnormal glucose; E66.9 Obesity, unspecified; Z68.42 Body mass index [BMI] 45.0-49.9, adult; Z98.890 Other specified postprocedural states
CPT/HCPCS: 36415; 73630; 80053; 82652; 83036; 85025; 85651; 86140

== ENCOUNTER 2024-08-17 08:47 | Outpatient (CLI) | payer MEDICARE, SELFPAY ==
--- NOTE | 2024-08-17 08:51 | XR_ITS ---
FINAL REPORT CLINICAL HISTORY: foot pain COMPARISON: 06/22/2024 FINDINGS: AP, oblique and lateral views of the right foot were obtained. There is no acute fracture or dislocation. Postoperative changes of fusion are present at the first MTP joint. 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 The hardware is intact and unchanged since the prior exam of 06/22/2023. Mild degenerative changes are present involving the midfoot. Soft tissues are normal. IMPRESSION: Postoperative changes are once again noted as described above. No acute bony abnormality is identified. Reviewed, Interpreted and Dictated by Bessy James MD Transcribed by Emilia Rosales Authenticated and [facility]
== END 2024-08-17 23:59 | disposition home or self-care (01) ==
LOC: RAD 08:49
PROVIDERS: PCP Family Medicine; Visit Provider Podiatrist
DX: M25.474 Effusion, right foot (principal); M96.0 Pseudarthrosis after fusion or arthrodesis
CPT/HCPCS: 73630

== ENCOUNTER 2024-09-02 14:33 | Outpatient (CLI) | payer MEDICARE, OTHER, SELFPAY ==
--- NOTE | 2024-09-02 14:46 | CT_ITS ---
FINAL REPORT TECHNIQUE: Thin section axial CT images of the right foot with coronal and sagittal reformats were performed. This study was performed with techniques to keep radiation doses as low as reasonably achievable (ALARA). Individualized dose reduction techniques using automated exposure control or adjustment of mA and/or kV according to the patient''s size were employed. CLINICAL HISTORY: Foot Pain COMPARISON: April 23, 2024 CT FINDINGS: Again noted are postoperative changes from fusion at the level of the first digit with a screw plate and multiple screws. There is partial bony fusion at the proximal aspect of the presumed graft which has increased since the prior examination. There is lack of bony fusion at the distal aspect of the graft consistent with a delayed union or nonunion. Mild degenerative changes are seen. No other focal bony abnormality is identified. IMPRESSION: Partial bony fusion at the proximal aspect of the graft at the first digit. Lack of bony fusion at the distal aspect of the graft worrisome for delayed union or nonunion. Authenticated and [facility]
[2024-09-16 05:07] LABS: 1,25 Dihydroxy Vitamin D 52 pg/mL (.); 1,25-Dihydroxy, Vitamin D-2 <10 pg/mL (.); 1,25-Dihydroxy, Vitamin D-3 52 pg/mL (.)
== END 2024-09-02 23:59 | disposition home or self-care (01) ==
LOC: RAD 14:34
PROVIDERS: PCP Family Medicine; Visit Provider Podiatrist
DX: E55.9 Vitamin D deficiency, unspecified (principal); Z98.890 Other specified postprocedural states; M79.671 Pain in right foot
CPT/HCPCS: 36415; 73700; 82652

== ENCOUNTER 2024-12-28 11:48 | Outpatient (CLI) | payer MEDICARE, SELFPAY ==
--- NOTE | 2024-12-28 11:58 | XR_ITS ---
FINAL REPORT TECHNIQUE: Right foot 3 views CLINICAL HISTORY: Postoperatrive f/u, pt states he had surgery on his right foot approx 1 year ago and that he doesn't think it is healing properly, he has lots of pain in his right foot COMPARISON: 08/17/2024 FINDINGS: RIGHT FOOT: 3 views of the right foot were obtained. There is a sideplate and screws bridging a fusion of the first MTP joint. The proximal interphalangeal joint of the first toe also appears fused. No acute bony abnormality is identified. No significant soft tissue abnormality is identified. IMPRESSION: Postoperative changes as described. No acute bony abnormality identified. Reviewed, Interpreted and Dictated by Tomas Brown MD Transcribed by Emilia Rosales Authenticated and [facility]
== END 2024-12-28 23:59 | disposition home or self-care (01) ==
LOC: RAD 11:49
PROVIDERS: Visit Provider Podiatrist
DX: M79.671 Pain in right foot (principal); M79.672 Pain in left foot
CPT/HCPCS: 73630

== ENCOUNTER 2025-03-29 12:27 | Outpatient (CLI) | payer MEDICARE, SELFPAY ==
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
--- OUTSIDE RECORDS SUMMARY | 2025-02-18 15:45 | XMS_ITS | Encounter Summary ---
Author Organization [employer] ([place], [place], [place], [place]) Address [address] [place] [address] Care Team Providers Care Casting Room Operator Name Role Phone Mary Anne Mccormack APRN Primary Care Provider + Reason for Referral * Diagnostic X-Ray (Routine) - Closed Specialty Diagnoses / Procedures Referred By Maria Luisa parra Referred To Contact Radiology Diagnoses Neck pain Procedures XR spine cervical 2 or 3 views Aleja Enamorado APRN [address] [place] [address] Phone: tel: fax: [facility] Diagnostic Imaging [address] [place] [phone] Phone: tel: fax: Referral ID Status Reason Start Date Expiration Date Visits Re quested Visits Authorized [id number] Closed 02/18/2025 02/18/2026 1 1 Reason for Visit * Diagnostic X-Ray (Routine) - Closed Specialty Diagnoses / Procedures Referred By Maria Luisa parra Referred To Contact Radiology Diagnoses Neck pain Procedures XR spine cervical 2 or 3 views Aleja Enamorado APRN [address] [place] [address] Phone: tel: fax: [facility] Diagnostic Imaging [address] [place] [phone] Phone: tel: fax: Referral ID Status Reason Start Date Expiration Date Visits Re quested Visits Authorized [id number] Closed 02/18/2025 02/18/2026 1 1 Encounter Details Date Type Department Care Team (Latest Contact Info) Description 02/18/2025 3:45 PM EDT - 02/18/2025 3:52 PM EDT Hospital Encounter [facility] Diagnostic Imaging [address] [place] [address] Neck pain Discharge Disposition: Home or Self Care Social History Tobacco Use Types Packs/Day Years Used Date Smoking Tobacco: Former Cigarettes 2 1 - 2005 Smokeless Tobacco: Never Alcohol Use Standard Drinks/Week Comments Not Currently 0 (1 standard drink = 0.6 oz pur e alcohol) 6 monthsago [facility] - Mental Health Answer Date Recorde [...] Date Imer rded Speak language other than Lebanese at home Not on file 10/02/2023 Want [...] on file documented as of this encounter Medications at Time of Discharge acetaminophen (TYLENOL) 650 MG CR tablet Take 2 tablets (1,300 mg total) by mouth 3 (three) times daily. amLODIPine (NORVASC) 10 MG tablet Take 1 tablet (10 mg total) by mouth daily Roxi Drew. 11/28/2022 aspirin 81 MG EC tablet Take 1 tablet (81 mg total) by mouth daily. celecoxib (CeleBREX) 200 MG capsule Take 1 capsule (200 mg total) by mouth daily for 120 days. 30 capsule 3 12/16/2024 04/15/2025 cholecalciferol, vitamin D3, 75 mcg (3,000 unit) Tab Take 1 tablet (3,000 Units total) by mouth daily. citalopram (CeleXA) 20 MG tabletIndications :Anxiety TAKE 1 TABLET BY MOUTH DAILY 90 tablet 3 01/05/2025 fenofibrate (TRICOR) 48 MG tablet Take 1 tablet (48 mg total) by mouth daily. ferrous sulfate 325 (65 FE) MG tablet Take 1 tablet (325 mg total) by mouth daily with breakfast. loratadine (CLARITIN) 10 mg tablet Take by mouth. lovastatin (MEVACOR) 20 MG tablet Take 1 tablet (20 mg total) by mouth daily. 11/28/2022 neomycin-polymyxi n-hydrocortisone (CORTISPORIN) 3.5-10,000-1 mg/mL-unit/mL-% otic suspension Place 3 drops into the left ear 4 (four) times daily. 10 mL 10/12/2024 omeprazole (PriLOSEC) 40 MG capsuleIndication s:Gastroesophagea l reflux disease, unspecified whether esophagitis present Take 1 capsule (40 mg total) by mouth daily. 30 capsule 10/12/2024 tadalafiL, pulm. hypertension, (ADCIRCA) 20 mgIndications:ED (erectile dysfunction) Take 1 tablet (20 mg total) by mouth daily. 10 tablet 2 12/29/2024 tirzepatide (Mounjaro) 2.5 mg/0.5 mL pnij Inject 2.5 mg under the skin every 7 days. 2 mL 12/07/2024 valsartan (DIOVAN) 160 MG tablet Take 1 tablet (160 mg total) by mouth daily Roxi Calderon. DULoxetine (CYMBALTA) 30 MG capsuleIndication s:Polyarthropathy Take 1 capsule (30 mg total) by mouth daily. 30 tablet 02/18/2025 02/26/2025 documented as of this encounter Miscellaneous Notes * Result Encounter Note - Denny Olmos - 02/18/2025 3:45 PM EDT Patient informed of results during clinic encounter/telephone encounter. Called and LVMM advising patient of results of Cervical x-ray results. documented in this encounter Plan of Treatment Upcoming Encounters Date Type Department Care Team (Late st Contact Info) Description 04/02/2025 2:00 PM EDT Office Visit [facility] Primary Care - [facility] [address] [place] [address] Mary Anne Mccormack, PROMOTIONAL MODEL [address] [place] [address] 05/20/2025 3:30 PM EDT Office Visit [facility] Orthopedics - [address] [phone] Jazmin Bell PA-C [address] [place] [address] documented as of this encounter Procedures Procedure Name Priority Date/Time Associated Diagnosis Comments XR SPINE CERVICAL 2 OR 3 VIEWS Routine 02/18/2025 4:03 PM EDT Neck pain documented in this encounter Results * XR spine cervical 2 or 3 [...] IMG DIAGNOSTIC IMAGING ORD ERABLES Final Result documented in this encounter Visit Diagnoses Diagnosis Neck pain Cervicalgia documented in this encounter Care Teams Casting Room Operator Relationship Specialty Start Date End Date Mary Anne Mccormack APRN [address] [place] [address] PCP - General Family Medicine 12/29/24 documented as of this encounter
--- OUTSIDE RECORDS SUMMARY | 2025-02-18 15:53 | XMS_ITS | Encounter Summary ---
Author Organization [employer] ([place], [place], [place], [place]) Address [address] [place] [address] Care Team Providers Care Dinkey Engine Firer/Fireman Name Role Phone Mary Anne Mccormack APRN Primary Care Provider + Reason for Referral * Diagnostic X-Ray (Routine) - Closed Specialty Diagnoses / Procedures Referred By Maria Luisa parra Referred To Contact Radiology Diagnoses Shoulder pain, left Procedures X-ray clavicle bilateral Aleja Enamorado APRN [address] [place] [address] Phone: tel: fax: [facility] Diagnostic Imaging [address] [place] [phone] Phone: tel: fax: Referral ID Status Reason Start Date Expiration Date Visits Re quested Visits Authorized [id number] Closed 02/18/2025 02/18/2026 1 1 Reason for Visit * Diagnostic X-Ray (Routine) - Closed Specialty Diagnoses / Procedures Referred By Maria Luisa parra Referred To Contact Radiology Diagnoses Shoulder pain, left Procedures X-ray clavicle bilateral Aleja Enamorado APRN [address] [place] [address] Phone: tel: fax: [facility] Diagnostic Imaging [address] [place] [phone] Phone: tel: fax: Referral ID Status Reason Start Date Expiration Date Visits Re quested Visits Authorized [id number] Closed 02/18/2025 02/18/2026 1 1 Encounter Details Date Type Department Care Team (Latest Contact Info) Description 02/18/2025 3:53 PM EDT Hospital Encounter [facility] [address] [place] [address] Shoulder pain, left Discharge Disposition: Home or Self Care Social History Tobacco Use Types Packs/Day Years Used Date Smoking Tobacco: Former Cigarettes 2 1 981 - 2005 Smokeless Tobacco: Never Alcohol Use Standard Drinks/Week Comments Not Currently 0 (1 standard drink = 0.6 oz pur e alcohol) 6 monthsago [facility] - Mental Health Answer Date Recorde d [...] Date Imer rded Speak language other than Comoran at home Not on file 10/02/2023 Want [...] 02/18/2025 02/26/2025 documented as of this encounter Plan of Treatment Upcoming Encounters Date Type Department Care Team (Late st Contact Info) Description 04/02/2025 2:00 PM EDT Office Visit [facility] Primary Care - [address] [address] Mary Anne Mccormack, ASSOCIATE JUVENILE COURT JUDGE [address] [place] [address] 05/20/2025 3:30 PM EDT Office Visit [facility] Orthopedics - [address] [phone] Jazmin Bell PA-C [address] [place] [address] documented as of this encounter Procedures Procedure Name Priority Date/Time Associated Diagnosis Comments XR CLAVICLE BILATERAL Routine 02/18/2025 4:03 PM EDT Shoulder pain, left documented in this encounter Results * X-ray clavicle bilateral (02/18/2025 4:03 PM [...] are maintained and are symmetric. IMPRESSION: Negative. us Aleja Enamorado APRN IMG DIAGNOSTIC IMAGING ORD ERABLES Final Result documented in this encounter Visit Diagnoses Diagnosis Shoulder pain, left Pain in joint, shoulder region documented in this encounter Care Teams Dinkey Engine Firer/Fireman Relationship Specialty Start Date End Date Mary Anne Mccormack, ASSOCIATE JUVENILE COURT JUDGE [address] [place] [address] PCP - General Family Medicine 12/29/24 documented as of this encounter
--- OUTSIDE RECORDS SUMMARY | 2025-02-18 15:54 | XMS_ITS | Encounter Summary ---
Author Organization [employer] ([place], [place], [place], [place]) Address [address] [place] [address] Care Team Providers Care Planting Material Carrier Name Role Phone Mary Anne Mccormack APRN Primary Care Provider + Reason for Referral * Diagnostic X-Ray (Routine) - Closed Specialty Diagnoses / Procedures Referred By Maria Luisa parra Referred To Contact Radiology Diagnoses Shoulder pain, left Procedures XR shoulder complete 2 views min left Aleja Enamorado APRN [address] [place] [address] Phone: tel: fax: [facility] Diagnostic Imaging [address] [place] [phone] Phone: tel: fax: Referral ID Status Reason Start Date Expiration Date Visits Re quested Visits Authorized [id number] Closed 02/18/2025 02/18/2026 1 1 Reason for Visit * Diagnostic X-Ray (Routine) - Closed Specialty Diagnoses / Procedures Referred By Maria Luisa parra Referred To Contact Radiology Diagnoses Shoulder pain, left Procedures XR shoulder complete 2 views min left Aleja Enamorado APRN [address] [place] [address] Phone: tel: fax: [facility] Diagnostic Imaging [address] [place] [phone] Phone: tel: fax: Referral ID Status Reason Start Date Expiration Date Visits Re quested Visits Authorized [id number] Closed 02/18/2025 02/18/2026 1 1 Encounter Details Date Type Department Care Team (Latest Contact Info) Description 02/18/2025 3:54 PM EDT - 02/18/2025 11:59 PM EDT Hospital Encounter [facility] [address] [place] [phone] Shoulder pain, left Discharge Disposition: Home or Self Care Social History Tobacco Use Types Packs/Day Years Used Date Smoking Tobacco: Former Cigarettes 2 - 2005 Smokeless Tobacco: Never Alcohol Use Standard Drinks/Week Comments Not Currently 0 (1 standard drink = 0.6 oz pur e alcohol) 6 monthsago [facility] - Mental Health Answer Date Recorde d [...] Date Imer rded Speak language other than Tajik at home Not on file 10/02/2023 Want [...] Description 04/02/2025 2:00 PM EDT Office Visit [facility] Primary Care - [facility] [address] [place] [address] Mary Anne Mccormack, RESIDENTIAL ENERGY AUDITOR [address] [place] [address] 05/20/2025 3:30 PM EDT Office Visit [facility] Orthoped[facility] - [place] [address] [place] [phone] Jazmin Bell PA-C [address] [place] [address] documented as of this encounter Procedures Procedure Name Priority Date/Time Associated Diagnosis Comments XR SHOULDER COMPLETE 2 VIEWS MIN LEFT Routine 02/18/2025 4:04 PM EDT Shoulder pain, left documented in this encounter Results * XR shoulder complete 2 views min [...] and dictated by Jean Marie Bellamy DO Authoraníbal Provider Result Type Result Stat Aleja Enamorado APRN [facility] DIAGNOSTIC IMAGING ORD ERABLES Final Result documented in this encounter Visit Diagnoses Diagnosis Shoulder pain, left Pain in joint, shoulder region documented in this encounter Care Teams Planting Material Carrier Relationship Specialty Start Date End Date Mary Anne Mccormack APRN [address] [place] [address] PCP - General Family Medicine 12/29/24 documented as of this encounter
--- OUTSIDE RECORDS SUMMARY | 2025-02-18 16:30 | XMS_ITS | Encounter Summary ---
Author Organization [employer] ([place], [place], [place], [place]) Address [address] [place] [address] Care Team Providers Care Sales Office Administrator Name Role Phone MccormackDavinMary Anne Jade GRAJEDA Primary Care Provider + Encounter Details Date Type Department Care Team (Latest Contact Info) Description 02/18/2025 4:30 PM EDT Lab Patient Walk-In [facility] [address] [place] [address] Vitamin D deficiency (Primary Dx) Social History Tobacco Use Types Packs/Day Years Used Date Smoking Tobacco: Former Cigarettes 2 1 981 - 2005 Smokeless Tobacco: Never Alcohol Use Standard Drinks/Week Comments Not Currently 0 (1 standard drink = 0.6 oz pur e alcohol) 6 monthsago [facility] - Mental Health Answer Date Recorde [...] Date Imer rded Speak language other than Cuban at home Not on file 10/02/2023 Want [...] on file documented as of this encounter Plan of Treatment Upcoming Encounters Date Type Department Care Team (Late st Contact Info) Description 04/02/2025 2:00 PM EDT Office Visit [facility] Primary Care - [address] [phone] Mary Anne Mccormack L, TURPENTINE DISTILLER [address] [place] [address] 05/20/2025 3:30 PM EDT Office Visit [facility] Orthopedics - [address] [phone] Jazmin Bell PA-C [address] [place] [address] documented as of this encounter Procedures Procedure Name Priority Date/Time Associated Diagnosis Comments SEDIMENTATION RATE Routine 02/18/2025 4: 22 PM EDT Polyarthropathy COMPREHENSIVE METABOLIC PANEL Routine 02/18/2025 4:22 PM EDT Polyarthropathy CBC W/ AUTO DIFF Routine 02/18/2025 4:22 PM EDT Vitamin D deficiency RHEUMATOID FACTOR(SENDOUT) Routine 02/18/2025 4:22 PM EDT Vitamin D deficiency CHER REFLEXIVE PROFILE(SENDOUT) Routine 02/18/2025 4:22 PM EDT Vitamin D deficiency documented in this encounter Results * CHER Reflexive Profile(SENDOUT) (02/18/2025 4:22 PM EDT) Anti-Nuclear Ab (CHER), IgG by MERCEDES None Detected None Detected 02/21/2025 7:02 AM EDT [employer] Comment: No Anti-Nuclear Antibodies (CHER) detected by [facility]. The Extractable Nuclear Antigen Antibodies (FERRYBOAT HELPER, Vaca, SSA 52, SSA 60, Scleroderma, Rhiannon-1 and SSB) and Double Stranded DNA (dsDNA) Antibody, IgG will not be performed. If suspicion of connective tissue disease is strong, and CHER is negative by MERCEDES, consider testing for CHER by IFA ([id number]). INTERPRETIVE INFORMATION: Anti-Nuclear Antibodies (CHER), IgG by [facility] Antinuclear Antibodies (CHER), IgG by [facility]: CHER specimens are screened using enzyme-linked immunosorbent assay (MERCEDES) methodology. All [facility]EDES results reported as Detected are further tested by indirect fluorescent assay (IFA) using HEp-2 substrate with an IgG-specific conjugate. The CHER MERCEDES screen is designed to detect antibodies against dsDNA, histones, SS-A (Ro), SS-B (La), Vaca, Vaca/FERRYBOAT HELPER, Scl-70, Rhiannon-1, centromeric proteins, other antigens extracted from the HEp-2 cell nucleus. CHER MERCEDES assays have been reported to have lower sensitivities than CHER IFA for systemic autoimmune rheumatic diseases (SARD). Negative results do not necessarily rule out SARD. Performed By: [facility] [address] [place], [place] [id number] Feeder Operator: Tevin Marshall MD, PhD CLIA Number: [id number] Blood Venipuncture / Unknown 02/18/2025 4:22 PM EDT 02/18/2025 4:22 PM EDT Aleja Enamorado APRN LAB BLOOD ORDERABLES Final Result [employer] [address] [place], [place] [id number], [facility] [phone] * (ABNORMAL) CBC with automated diff (02/18/2025 4:22 PM EDT) WBC 11.5(H) 4.8 - 10.8 K/ L 02/18/2025 4:32 PM EDT [facility] RBC 4.65 3.80 - 5.20 M/ L 02/18/2025 4:32 PM EDT [facility] Hemoglobin 14.1 12.8 - 17.4 GM/DL 02/18/2025 4:32 PM EDT [facility] Hematocrit 40.1 39.0 - 51.0 % 02/18/2025 4:32 PM EDT [facility] MCV 86 81 - 101 fL 02/18/2025 4:32 PM EDT [facility] MCH 30.3 27.0 - 34.0 pg 02/18/2025 4:32 PM EDT [facility] MCHC 35.2 32.0 - 36.0 GM/DL 02/18/2025 4:32 PM EDT [facility] RDW 13.1 11.5 - 14.5 % 02/18/2025 4:32 PM EDT [facility] Platelets 317 150 - 400 K/CU MM 02/18/2025 4:32 PM EDT [facility] MPV 10.0 9.4 - 12.4 fL 02/18/2025 4:32 PM EDT [facility] Nucleated Red Blood Cell 0.0 0 - 0.2 % 02/18/2025 4:32 PM EDT [facility] % Neutros 87(H) 37 - 80 % 02/18/2025 4:32 PM EDT [facility] % Lymphs 8(L) 10 - 50 % 02/18/2025 4:32 PM EDT [facility] % Monos 5 5 - 13 % 02/18/2025 4:32 PM EDT [facility] % Eos 0 0 - 7 % 02/18/2025 4:32 PM EDT [facility] % Baso 0 0 - 3 % 02/18/2025 4:32 PM EDT [facility] NRBC Absolute <0.01 0 - 0.012 K/ul 02/18/2025 4:32 PM EDT [facility] # Neutros 9.99(H) 2.00 - 6.90 K/ L 02/18/2025 4:32 PM EDT [facility] # Lymphs 0.90 0.60 - 3.40 K/ L 02/18/2025 4:32 PM EDT [facility] # Monos 0.56 0.00 - 0.90 K/ L 02/18/2025 4:32 PM EDT [facility] # Eos 0.00 0.00 - 0.70 K/ L 02/18/2025 4:32 PM EDT [facility] # Baso 0.01 0.00 - 0.20 K/ L 02/18/2025 4:32 PM EDT [facility] Immature Granulocytes-Re lative 0.50 % 02/18/2025 4:32 PM EDT [facility] # IG 0.06(H) 0.00 - 0.00 K/uL 02/18/2025 4:32 PM EDT [facility] Blood Venipuncture / Unknown 02/18/2025 4:22 PM EDT 02/18/2025 4:22 PM EDT Narrative [facility] - 02/18/2025 4:32 PM EDT When CBC w/ Auto Diff is ordered the lab will add a Manual Differential as a quality check at no additional charge if: Lymphocytes greater than seventy five percent with normal or increased WBC Monocytes greater than Fifteen percent Basophil greater than four percent Bands >10% or several immature myeloids are seen on scan Blast? Flag noted Atypical Lymph flag noted Aleja Enamorado APRN LAB BLOOD ORDERABLES Final Result [facility] [address] [place] [address] * Rheumatoid Factor(SENDOUT) (02/18/2025 4:22 PM EDT) Rheumatoid Factor <10 0 - 14 IU/mL 02/21/2025 11:53 PM EDT [employer] Comment: Performed By: [facility] [address] [place] [id number] Feeder Operator: Tevin Marshall MD, PhD CLIA Number: [id number] Blood Venipuncture / Unknown 02/18/2025 4:22 PM EDT 02/18/2025 4:22 PM EDT Aleja Enamorado TURPENTINE DISTILLER LAB BLOOD ORDERABLES Final Result [facility] [address] [place] [address], [facility] [phone] documented in this encounter Visit Diagnoses Diagnosis Vitamin D deficiency- Primary Unspecified vitamin D deficiency documented in this encounter Care Teams Sales Office Administrator Relationship Specialty Start Date End Date Mary Anne Mccormack APRN [address] [phone] PCP - General Family Medicine 12/29/24 documented as of this encounter
--- OUTSIDE RECORDS SUMMARY | 2025-02-26 14:00 | XMS_ITS | Encounter Summary ---
Author Organization [employer] ([place], [place], [place], [place]) Address [address] [place] [address] Care Team Providers Care Electronic Components Assembler Name Role Phone Mary Anne Mccormack APRN Primary Care Provider + Reason for Visit * Reason Comments Follow-up Encounter Details Date Type Department Care Team (Latest Contact Info) Description 02/26/2025 2:00 PM EDT Office Visit [facility] Primary Care - [facility] [address] [place] [phone] Mary Anne Mccormack APRN [address] [place] [phone] Polyarthropathy (Primary Dx) Social History Tobacco Use Types Packs/Day Years Used Date Smoking Tobacco: Former Cigarettes 2 25 1 981 - 2005 Smokeless Tobacco: Never Alcohol Use Standard Drinks/Week Comments Not Currently 0 (1 standard drink = 0.6 oz pur e alcohol) 6 monthsago [facility] - Mental Health Answer Date Recorde [...] Date Imer rded Speak language other than Scottish at home Not on file 10/02/2023 Want [...] Sign Reading Time Taken Comments Blood Pressure 122/86 02/26/2025 1:51 PM EDT Pulse 72 02/26/2025 1:51 PM EDT Temperature - - Respiratory Rate - - Oxygen Saturation 96% 02/26/2025 1:51 PM EDT Inhaled Oxygen Concentration - - Weight 142.9 kg (315 lb) 02/26/2025 1:51 PM EDT Height - - Body Mass Index 45.2 02/18/2025 2:56 PM EDT documented in this encounter Progress Notes * Mary Anne Mccormack, NICCI - 02/26/2025 2:00 PM EDT Subjective: Christiano Nolan is a 59 y.o. male. Chief Complaint Patient presents with Follow-up I have reviewed and/or updated the following: Patient comes in today for follow up after seeing Aleja last week for shoulder pain. He states that he is still having muscles aches and pains. Patient has a follow up with orthopedics in the nextcouple months. He is using the muscle relaxer and the lidocaine, but still having pain. Discussed with patient that we need to see what else ortho has to say. Gave patient prescription for cymbalta today to help with muscle aches and pains until he sees what ortho would like to do. Patient understands and is agreeable with this plan of care. Review of Systems Constitutional: Negative for fatigue and fever. Respiratory: Negative for cough, chest tightness and shortness of breath. Cardiovascular: Negative for chest pain, palpitations and leg swelling. Gastrointestinal: Negative for abdominal pain, constipation, diarrhea, nausea and vomiting. Musculoskeletal: Positive for arthralgias. Neurological: Negative for dizziness, weakness, light-headedness, numbness and headaches. All other systems reviewed and are negative. Objective: BP 122/86 Pulse 72 Wt (!) 142.9 kg (315 lb) SpO2 96% BMI 45.20 kg/m?? Physical Exam Vitals and nursing note reviewed. Constitutional: Appearance: Normal appearance. HENT: Head: Normocephalic and atraumatic. Nose: Nose normal. Mouth/Throat: Mouth: Mucous membranes are moist. Eyes: Pupils: Pupils are equal, round, and reactive to light. Cardiovascular: Rate and Rhythm: Normal rate and regular rhythm. Heart sounds: Normal heart sounds. Pulmonary: Effort: Pulmonary effort is normal. Breath sounds: Normal breath sounds. Abdominal: General: Bowel sounds are normal. Palpations: Abdomen is soft. Musculoskeletal: General: Tenderness present. Cervical back: Normal range of motion. Skin: General: Skin is warm and dry. Neurological: General: No focal deficit present. Mental Status: He is alert and oriented to person, place, and time. Psychiatric: Mood and Affect: Mood normal. Behavior: Behavior normal. Assessment: 1. Polyarthropathy Plan: Diagnoses and all orders for this visit: Polyarthropathy - DULoxetine (CYMBALTA) 30 MG capsule; Take 1 capsule (30 mg total) by mouth daily. Return for Next Scheduled Follow Up. documented in this encounter Plan of Treatment Upcoming Encounters Date Type Department Care Team (Late st Contact Info) Description 04/02/2025 2:00 PM EDT Office Visit [facility] Primary Care - [facility] [address] [place] [address] Mary Anne Mccormack APRN [address] [place] [address] 05/20/2025 3:30 PM EDT Office Visit [facility] Orthopedics - [address] [phone] Jazmin Bell PA-C [address] [place] [address] documented as of this encounter Visit Diagnoses Diagnosis Polyarthropathy- Primary Unspecified polyarthropathy or polyarthritis, site unspecified documented in this encounter Care Teams Electronic Components Assembler Relationship Specialty Start Date End Date Mary Anne Mccormack, MANAGER DATA [address] [phone] PCP - General Family Medicine 12/29/24 documented as of this encounter
--- NOTE | 2025-03-29 12:30 | XR_ITS ---
FINAL REPORT CLINICAL HISTORY: right foot pain COMPARISON: 12/28/2024 FINDINGS: RIGHT FOOT 3 views of the right foot were obtained. Sideplate and screws are seen securing the first MTP joint. 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 Small Soraida deformity is noted. There is no acute fracture or dislocation. Visualized joint spaces are normally aligned. Soft tissues are unremarkable. IMPRESSION: No acute bony abnormality. Reviewed, Interpreted and Dictated by Tomas Brown MD Transcribed by Jazzy Laguna Authenticated and [facility]
--- OUTSIDE RECORDS SUMMARY | 2025-03-29 12:42 | XMS_ITS | Encounter Summary ---
Author Organization [employer] ([place], [place], [place], [place]) Address [address] [place] [address] Care Team Providers Care Front Office Coordinator Name Role Phone Lester Shaffer MD Primary Care Provider [phone] Jazmin Bell PA-C Unavailable [phone] Mary Anne Mccormack APRN Primary Care Provider + Encounter Details Date Type Department Care Team (Late st Contact Info) Description 02/02/2022 Transcribed Document [facility] [place] [address] ProviderDestiny MD [address] [place] [address] Social History Tobacco Use Types Packs/Day Years Used Date Smoking Tobacco: Never Assessed [facility] - [facility] Answer Date Recorde [...] Date Imer rded Speak language other than Citizen Of [place] at home Not on file 10/02/2023 Want [...] on file Sexual Orientation Not on file COVID-19 Exposure Response Date Recorded In the last 10 days, have yo u been in contact with someone who was confirmed or suspected to have Coronavirus/COVID-19? No / Unsure 08/01/2023 7:57 AM EST documented as of this encounter Miscellaneous Notes * Cerner Conversion Note - Historical ProviderMD - 02/02/2022 12:[address] [facility] [place] [address] CHRISTIANO NOLAN :1965 Visit Time:02/02/2022 Your Visit Summary Your Care Team Admitting Physician - PASCALE LUCIA MD-CAR Attending Physician - PASCALE LUCIA MD-CAR Primary Care Physician - LESTER SHAFFER MD-[facility] Referring Physician - VAUGHN FRANK NP Your Diagnosis Abnormal result of other cardiovascular function study, Abnormal result of other cardiovascular function study These Are Your Goals No qualifying data available. Discharge Vitals Temperature 36.8 ??C Heart Rate (Monitored) 58 Respiratory Rate 6 Blood Pressure 140/72 What to do next Instructions From Your Care Team Diet after Discharge: Resume usual diet as tolerated Activity after Discharge: Rest and relax today, No strenuous activity, No lifting more than 1 pound with affected hand for 48 hours. , Driving Restrictions: No driving for 24 hours. Showering/Bathing: You may remove the dressing in 24 hours and shower. , No tub bathing, soaking or swimming for 3-5 days until site is healed. Medications: You have a prescription for 1 or more new medications:__Valsartan___, Dr. Lucia increased your dose of Amlodipine from 5mg to 10mg. He also recommends taking a baby aspirin (81mg) per day. Dressing Instructions: Leave your dressing in place keeping the site clean and dry., Dr. Lucia recommends taking your BP twice a day and keeping a record of it. Follow-Up Appointments Follow Up with DEBORAH ZAZUETA When Comments Keep previously scheduled appt Where: [address] [place] [address] [place] [address]- [phone] Business (1) Medications What How Much When Instructions Next Dose amLODIPine (amLODIPine 5 mg oral tablet) 1 Tablet(s) Oral Every Day citalopram (citalopram 20 mg oral tablet) 1 Tablet(s) Oral Every Day ibuprofen (ibuprofen 800 mg oral tablet) 1 Tablet(s) Oral Every 6 Hours loratadine (loratadine 10 mg oral tablet) 1 Tablet(s) Oral Every Day lovastatin (lovastatin 10 mg oral tablet) 1 Tablet(s) Oral At Bedtime omeprazole 40 Milligram(s) Oral Every Day Take your medications faithfully. Do NOT skip medication. Do NOT stop taking medications without the direction of a physician. Carry a list of your medications with you at all times, and take this medication list with you to your first follow up visit. Report any side effects. Avoid herbal remedies unless discussed with your physician. As part of your treatment plan, your physician may have prescribed a limited course of a controlled substance. This medication may be given to help people with moderate or severe pain or for other medical conditions, but there are risks involved with treatment. Common side effects may include nausea, constipation, drowsiness, sweating, itching, dry mouth, and rash. More serious side effects may include cognitive and motor impairment, like problems with thinking, concentrating, alertness, and movement (e.g. slowed reflexes), and driving and operating heavy machinery can be dangerous. It is important for you to talk to your physician if you have these side effects or questions. These controlled substances can produce physical dependence and be habit-forming if taken for an extended period of time, which means that the body has gotten used to them and may experience withdrawal symptoms if they are abruptly stopped. Withdrawal symptoms can include runny nose, sweating, goose bumps, diarrhea, abdominal cramping, rapid heartbeat, difficulty sleeping, and nervousness. Please dispose of unused and medications per your retail pharmacy guidance. Allergies No Known Allergies Immunizations This Visit No Immunizations Found Education Materials Coronary Angiogram A coronary angiogram is an X-ray procedure that is used to examine the arteries in the heart. Contrast dye is injected through a long, thin tube (catheter) into these arteries. Then X-rays are taken to show any blockage in these arteries. You may have this procedure if you: ??? Are having chest pain, or other symptoms of angina, and you are at risk for heart disease. ??? Have an abnormal stress test or test of your heart's electrical activity (electrocardiogram, or ECG). ??? Have chest pain and heart failure. ??? Are having irregular heart rhythms. A coronary angiogram or heart catheterization can show if you have valve disease or a disease of the aorta. This procedure can also be used to check the overall function of your heart muscle. Let your health care provider know about: ??? Any allergies you have, including allergies to medicines or contrast dye. ??? All medicines you are taking, including vitamins, herbs, eye drops, creams, and roxj-gkz-ucwptom medicines. ??? Any problems you or family members have had with anesthetic medicines. ??? Any blood disorders you have. ??? Any surgeries you have had. ??? Any history of kidney problems or kidney failure. ??? Any medical conditions you have. ??? Whether you are or may be . ??? Whether you are . What are the risks? Generally, this is a safe procedure. However, problems may occur, including: ??? Infection. ??? Allergic reaction to medicines or dyes that are used. ??? Bleeding from the insertion site or other places. ??? Damage to nearby structures, such as blood vessels, or damage to kidneys from contrast dye. ??? Irregular heart rhythms. ??? Stroke (rare). ??? Heart attack (rare). What happens before the procedure? Staying hydrated Follow instructions from your health care provider about hydration, which may include: ??? Up to 2 hours before the procedure ??? you may continue to drink clear liquids, such as water, clear fruit juice, black coffee, and plain tea. Eating and drinking restrictions Follow instructions from your health care provider about eating and drinking, which may include: ??? 8 hours before the procedure ??? stop eating heavy meals or foods, such as meat, fried foods, or fatty foods. ??? 6 hours before the procedure ??? stop eating light meals or foods, such as toast or cereal. ??? 6 hours before the procedure ??? stop drinking milk or drinks that contain milk. ??? 2 hours before the procedure ??? stop drinking clear liquids. Medicines Ask your health care provider about: ??? Changing or stopping your regular medicines. This is especially important if you are taking diabetes medicines or blood thinners. ??? Taking medicines such as aspirin and ibuprofen. These medicines can thin your blood. Do not take these medicines unless your health care provider tells you to take them. Aspirin may be recommended before coronary angiograms even if you do not normally take it. ??? Taking fmra-eei-fmypemc medicines, vitamins, herbs, and supplements. General instructions ??? Do not use any products that contain nicotine or tobacco for at least 4 weeks before the procedure. These products include cigarettes, e-cigarettes, and chewing tobacco. If you need help quitting, ask your health care provider. ??? You may have an exam or testing. ??? Plan to have someone take you home from the hospital or clinic. ??? If you will be going home right after the procedure, plan to have someone with you for 24 hours. ??? Ask your health care provider: ? How your insertion site will be marked. ? What steps will be taken to help prevent infection. These may include: ? Removing hair at the insertion site. ? Washing skin with a germ-killing soap. ? Taking antibiotic medicine. What happens during the procedure? You will lie on your back on an X-ray table. ??? An IV will be inserted into one of your veins. ??? Electrodes will be placed on your chest. ??? You will be given one or more of the following: ? A medicine to help you relax (sedative). ? A medicine to numb the catheter insertion area (local anesthetic). ??? You will be connected to a continuous ECG monitor. ??? The catheter will be inserted into an artery in one of these areas: ? Your groin area in your upper thigh. ? Your wrist. ? The fold of your arm, near your elbow. ??? An X-ray procedure (fluoroscopy) will be used to help guide the catheter to the opening of the blood vessel to be used. ??? A dye will be injected into the catheter and X-rays will be taken. The dye will help to show any narrowing or blockages in the heart arteries. ??? Tell your health care provider if you have chest pain or trouble breathing. ??? If blockages are found, another procedure may be done to open the artery. ??? The catheter will be removed after the fluoroscopy is complete. ??? A bandage (dressing) will be placed over the insertion site. Pressure will be applied to stop bleeding. ??? The IV will be removed. The procedure may vary among health care providers and hospitals. What happens after the procedure? Your blood pressure, heart rate, breathing rate, and blood oxygen level will be monitored until you leave the hospital or clinic. ??? You will need to lie still for a few hours, or for as long as told by your health care provider. ? If the procedure is done through the groin, you will be told not to bend or cross your legs. ??? The insertion site and the pulse in your foot or wrist will be checked often. ??? More blood tests, X-rays, and an ECG may be done. ??? Do not drive for 24 hours if you were given a sedative during your procedure. Summary ??? A coronary angiogram is an X-ray procedure that is used to examine the arteries in the heart. ??? Contrast dye is injected through a long, thin tube (catheter) into each artery. ??? Tell your health care provider about any allergies you have, including allergies to contrast dye. ??? After the procedure, you will need to lie still for a few hours and drink plenty of fluids. This information is not intended to replace advice given to you by your health care provider. Make sure you discuss any questions you have with your health care provider. Document Revised: 03/31/2020 Document Reviewed: 03/31/2020 [employer] Patient Education ?? 2020 [employer]. Coronary Angiogram, Care After This sheet gives you information about how to care for yourself after your procedure. Your health care provider may also give you more specific instructions. If you have problems or questions, contact your health care provider. What can I expect after the procedure? After the procedure, it is common to have: ??? Bruising and tenderness at the catheter insertion area. ??? A collection of blood (hematoma) at the insertion area. This may feel like a small lump under the skin. Follow these instructions at home: Insertion site care ??? Follow instructions from your health care provider about how to take care of your insertion site. Make sure you: ? Wash your hands with soap and water before and after you change your bandage (dressing). If soap and water are not available, use hand envelope adjuster. ? Change your dressing as told by your health care provider. ??? Do not take baths, swim, or use a hot tub until your health care provider approves. ??? You may shower 24???48 hours after the procedure, or as told by your health care provider. To clean the insertion site: ? Gently wash the area with plain soap and water. ? Pat the area dry with a clean towel. ? Do not rub the site. This may cause bleeding. ??? Keep the site clean and dry. Do not apply powder or lotion. ??? Check your insertion site every day for signs of infection. Check for: ? Redness, swelling, or pain. ? Fluid or blood. ? Warmth. ? Pus or a bad smell. Activity ??? Do not drive for 24 hours if you were given a sedative during your procedure. ??? Rest as told by your health care provider. You may be asked to rest for 1???2 days. ??? Do not lift anything that is heavier than 10 lb (4.5 kg), or the limit that you are told, until your health care provider says that it is safe. ??? If your insertion site was in your leg, try to avoid stairs for a few days. ??? Return to your normal activities as told by your health care provider, usually in about a week. Ask your health care provider what activities are safe for you. General instructions ??? If your insertion site starts bleeding, lie flat and put pressure on the site. If the bleeding does not stop, get help right away. This is a medical emergency. ??? Take defm-vfd-wsyxjto and prescription medicines only as told by your health care provider. ??? Drink enough fluid to keep your urine pale yellow. This helps to flush the contrast dye from your body. ??? Keep all follow-up visits as told by your health care provider. This is important. Contact a health care provider if: ??? You have a fever or chills. ??? You have redness, swelling, or pain around your insertion site. ??? You have fluid or blood coming from your insertion site. ??? Your insertion site feels warm to the touch. ??? You have pus or a bad smell coming from your insertion site. ??? You have more bruising around the insertion site. Get help right away if: ??? You have problems in the insertion site: ? You have severe pain, rapid swelling, or bleeding that does not stop when pressure is applied. ? The insertion site becomes pale, cool, tingly, or numb. ??? You have chest pain. ??? You have trouble breathing. ??? You have a rash. ??? Any symptoms of a stroke. BE FAST is an easy way to remember the main warning signs: ? B - Balance. Signs are dizziness, sudden trouble walking, or loss of balance. ? E - Eyes. Signs are trouble seeing or a sudden change in how you see. ? F - Face. Signs are sudden weakness or loss of feeling in the face, or the face or eyelid drooping on one side. ? A - Arms. Signs are weakness or loss of feeling in an arm. This happens suddenly and usually on one side of the body. ? S - Speech. Signs are sudden trouble speaking, slurred speech, or trouble understanding what people say. ? T - Time. Time to call emergency services. Write down what time symptoms started. ??? You have other signs of a stroke, such as: ? A sudden, severe headache with no known cause. ? Nausea or vomiting. ? Seizure. These symptoms may represent a serious problem that is an emergency. Do not wait to see if the symptoms will go away. Get medical help right away. Call your local emergency services (911 in the [place] Do not drive yourself to the hospital. Summary ??? It is common to have bruising and tenderness at the catheter insertion area. ??? Do not take baths, swim, or use a hot tub until your health care provider approves. You may shower 24???48 hours after the procedure or as told. ??? It is important to rest and drink plenty of fluids. ??? If the insertion site bleeds, lie flat and put pressure on the site. If the bleeding continues, get help right away. This is a medical emergency. This information is not intended to replace advice given to you by your health care provider. Make sure you discuss any questions you have with your health care provider. Document Revised: 07/13/2020 Document Reviewed: 07/13/2020 [employer] Patient Education ?? 2020 [employer] Managing Your Hypertension Hypertension, also called high blood pressure, is when the force of the blood pressing against the sewell of the arteries is too strong. Arteries are blood vessels that carry blood from your heart throughout your body. Hypertension forces the heart to work harder to pump blood and may cause the arteries to become narrow or stiff. Understanding blood pressure readings Your personal target blood pressure may vary depending on your medical conditions, your age, and other factors. A blood pressure reading includes a higher number over a lower number. Ideally, your blood pressure should be below 120/80. You should know that: ??? The first, or top, number is called the systolic pressure. It is a measure of the pressure in your arteries as your heart beats. ??? The second, or bottom number, is called the diastolic pressure. It is a measure of the pressure in your arteries as the heart relaxes. Blood pressure is classified into four stages. Based on your blood pressure reading, your health care provider may use the following stages to determine what type of treatment you need, if any. Systolic pressure and diastolic pressure are measured in a unit called mmHg. Normal ??? Systolic pressure: below 120. ??? Diastolic pressure: below 80. Elevated ??? Systolic pressure: 120???129. ??? Diastolic pressure: below 80. Hypertension stage 1 ??? Systolic pressure: 130???139. ??? Diastolic pressure: 80???89. Hypertension stage 2 ??? Systolic pressure: 140 or above. ??? Diastolic pressure: 90 or above. How can this condition affect me? Managing your hypertension is an important responsibility. Over time, hypertension can damage the arteries and decrease blood flow to important parts of the body, including the brain, heart, and kidneys. Having untreated or uncontrolled hypertension can lead to: ??? A heart attack. ??? A stroke. ??? A weakened blood vessel (aneurysm). ??? Heart failure. ??? Kidney damage. ??? Eye damage. ??? Metabolic syndrome. ??? Memory and concentration problems. ??? Vascular dementia. What actions can I take to manage this condition? Hypertension can be managed by making lifestyle changes and possibly by taking medicines. Your health care provider will help you make a plan to bring your blood pressure within a normal range. Nutrition ??? Eat a diet that is high in fiber and potassium, and low in salt (sodium), added sugar, and fat. An example eating plan is called the Dietary Approaches to Stop Hypertension (DASH) diet. To eat this way: ? Eat plenty of fresh fruits and vegetables. Try to fill one-half of your plate at each meal with fruits and vegetables. ? Eat whole grains, such as whole-wheat pasta, brown rice, or whole-grain bread. Fill about one-fourth of your plate with whole grains. ? Eat low-fat dairy products. ? Avoid fatty cuts of meat, processed or cured meats, and poultry with skin. Fill about one-fourth of your plate with lean proteins such as fish, chicken without skin, beans, eggs, and tofu. ? Avoid pre-made and processed foods. These tend to be higher in sodium, added sugar, and fat. ??? Reduce your daily sodium intake. Most people with hypertension should eat less than 1,500 mg of sodium a day. Lifestyle ??? Work with your health care provider to maintain a healthy body weight or to lose weight. Ask what an ideal weight is for you. ??? Get at least 30 minutes of exercise that causes your heart to beat faster (aerobic exercise) most days of the week. Activities may include walking, swimming, or biking. ??? Include exercise to strengthen your muscles (resistance exercise), such as weight lifting, as part of your weekly exercise routine. Try to do these types of exercises for 30 minutes at least 3 days a week. ??? Do not use any products that contain nicotine or tobacco, such as cigarettes, e-cigarettes, and chewing tobacco. If you need help quitting, ask your health care provider. ??? Control any long-term (chronic) conditions you have, such as high cholesterol or diabetes. ??? Identify your sources of stress and find ways to manage stress. This may include meditation, deep breathing, or making time for fun activities. Alcohol use ??? Do not drink alcohol if: ? Your health care provider tells you not to drink. ? You are , may be , or are planning to become . ??? If you drink alcohol: ? Limit how much you use to: ? 0???1 drink a day for women. ? 0???2 drinks a day for men. ? Be aware of how much alcohol is in your drink. In the [place] one drink equals one 12 oz bottle of beer (355 mL), one 5 oz glass of wine (148 mL), or one 1?? oz glass of hard liquor (44 mL). Medicines Your health care provider may prescribe medicine if lifestyle changes are not enough to get your blood pressure under control and if: ??? Your systolic blood pressure is 130 or higher. ??? Your diastolic blood pressure is 80 or higher. Take medicines only as told by your health care provider. Follow the directions carefully. Blood pressure medicines must be taken as told by your health care provider. The medicine does not work as well when you skip doses. Skipping doses also puts you at risk for problems. Monitoring Before you monitor your blood pressure: ??? Do not smoke, drink caffeinated beverages, or exercise within 30 minutes before taking a measurement. ??? Use the bathroom and empty your bladder (urinate). ??? Sit quietly for at least 5 minutes before taking measurements. Monitor your blood pressure at home as told by your health care provider. To do this: ??? Sit with your back straight and supported. ??? Place your feet flat on the floor. Do not cross your legs. ??? Support your arm on a flat surface, such as a table. Make sure your upper arm is at heart level. ??? Each time you measure, take two or three readings one minute apart and record the results. You may also need to have your blood pressure checked regularly by your health care provider. General information ??? Talk with your health care provider about your diet, exercise habits, and other lifestyle factors that may be contributing to hypertension. ??? Review all the medicines you take with your health care provider because there may be side effects or interactions. ??? Keep all visits as told by your health care provider. Your health care provider can help you create and adjust your plan for managing your high blood pressure. Where to find more information ??? National Heart, Lung, and Blood [place]: www.nhlbi.nih.gov ??? [place] [employer]: www.heart.org Contact a health care provider if: ??? You think you are having a reaction to medicines you have taken. ??? You have repeated (recurrent) headaches. ??? You feel dizzy. ??? You have swelling in your ankles. ??? You have trouble with your vision. Get help right away if: ??? You develop a severe headache or confusion. ??? You have unusual weakness or numbness, or you feel faint. ??? You have severe pain in your chest or abdomen. ??? You vomit repeatedly. ??? You have trouble breathing. These symptoms may represent a serious problem that is an emergency. Do not wait to see if the symptoms will go away. Get medical help right away. Call your local emergency services (911 in the [place] Do not drive yourself to the hospital. Summary ??? Hypertension is when the force of blood pumping through your arteries is too strong. If this condition is not controlled, it may put you at risk for serious complications. ??? Your personal target blood pressure may vary depending on your medical conditions, your age, and other factors. For most people, a normal blood pressure is less than 120/80. ??? Hypertension is managed by lifestyle changes, medicines, or both. ??? Lifestyle changes to help manage hypertension include losing weight, eating a healthy, low-sodium diet, exercising more, stopping smoking, and limiting alcohol. This information is not intended to replace advice given to you by your health care provider. Make sure you discuss any questions you have with your health care provider. Document Revised: 10/14/2020 Document Reviewed: 08/09/2020 [employer] Patient Education ?? 2020 [employer]View. Blood Pressure Record Sheet To take your blood pressure, you will need a blood pressure machine. You can buy a blood pressure machine (blood pressure monitor) at your clinic, drug store, or online. When choosing one, consider: ??? An automatic monitor that has an arm cuff. ??? A cuff that wraps snugly around your upper arm. You should be able to fit only one finger between your arm and the cuff. ??? A device that stores blood pressure reading results. ??? Do not choose a monitor that measures your blood pressure from your wrist or finger. Follow your health care provider's instructions for how to take your blood pressure. To use this form: ??? Get one reading in the morning (a.m.) before you take any medicines. ??? Get one reading in the evening (p.m.) before supper. ??? Take at least 2 readings with each blood pressure check. This makes sure the results are correct. Wait 1???2 minutes between measurements. ??? Write down the results in the spaces on this form. ??? Repeat this once a week, or as told by your health care provider. ??? Make a follow-up appointment with your health care provider to discuss the results. Blood pressure log Date: ??? a.m. (1st reading) (2nd reading) ??? p.m. (1st reading) (2nd reading) Date: ??? a.m. (1st reading) (2nd reading) ??? p.m. (1st reading) (2nd reading) Date: ??? a.m. (1st reading) (2nd reading) ??? p.m. (1st reading) (2nd reading) Date: ??? a.m. (1st reading) (2nd reading) ??? p.m. (1st reading) (2nd reading) Date: ??? a.m. (1st reading) (2nd reading) ??? p.m. (1st reading) (2nd reading) This information is not intended to replace advice given to you by your health care provider. Make sure you discuss any questions you have with your health care provider. Document Revised: 12/28/2020 Document Reviewed: 12/28/2020 Elsevier Patient Education ?? 2020 Elsevier Inc. Moderate Conscious Sedation, Adult, Care After This sheet gives you information about how to care for yourself after your procedure. Your health care provider may also give you more specific instructions. If you have problems or questions, contact your health care provider. What can I expect after the procedure? After the procedure, it is common to have: ??? Sleepiness for several hours. ??? Impaired judgment for several hours. ??? Difficulty with balance. ??? Vomiting if you eat too soon. Follow these instructions at home: For the time period you were told by your health care provider: ??? Rest. ??? Do not participate in activities where you could fall or become injured. ??? Do not drive or use machinery. ??? Do not drink alcohol. ??? Do not take sleeping pills or medicines that cause drowsiness. ??? Do not make important decisions or sign legal documents. ??? Do not take care of children on your own. Eating and drinking ??? Follow the diet recommended by your health care provider. ??? Drink enough fluid to keep your urine pale yellow. ??? If you vomit: ? Drink water, juice, or soup when you can drink without vomiting. ? Make sure you have little or no nausea before eating solid foods. General instructions ??? Take pgqg-lvi-ecnropq and prescription medicines only as told by your health care provider. ??? Have a responsible adult stay with you for the time you are told. It is important to have someone help care for you until you are awake and alert. ??? Do not smoke. ??? Keep all follow-up visits as told by your health care provider. This is important. Contact a health care provider if: ??? You are still sleepy or having trouble with balance after 24 hours. ??? You feel light-headed. ??? You keep feeling nauseous or you keep vomiting. ??? You develop a rash. ??? You have a fever. ??? You have redness or swelling around the IV site. Get help right away if: ??? You have trouble breathing. ??? You have new-onset confusion at home. Summary ??? After the procedure, it is common to feel sleepy, have impaired judgment, or feel nauseous if you eat too soon. ??? Rest after you get home. Know the things you should not do after the procedure. ??? Follow the diet recommended by your health care provider and drink enough fluid to keep your urine pale yellow. ??? Get help right away if you have trouble breathing or new-onset confusion at home. This information is not intended to replace advice given to you by your health care provider. Make sure you discuss any questions you have with your health care provider. Document Revised: 01/06/2021 Document Reviewed: 08/04/2020 Elsevier Patient Education ?? 2020 [employer] Emergency Awareness and Preventative Care STROKE is an EMERGENCY Every Minute Counts Act FAST and Check for these signs: FACE Does the face look uneven? ARM Does one arm drift down? SPEECH Does their speech sound strange? TIME Call at any sign of stroke Stroke Risk Factors Atrial Fibrillation (irregular heartbeat) Diabetes Family history of stroke Heart Disease Heavy alcohol use High Blood Pressure High Cholesterol Physical inactivity and obesity Smoking Cigarette Smoking The facts are clear, cigarette smoking will shorten your life. Smoking can cause many illnesses along the way. As a healthcare provider, we recommend that you stop smoking. Assistance with quitting is available by contacting 8-981-DLVF-NOW. This is a free resource providing counseling, support, and referral. Or you may contact your personal physician. [employer] Suicide Prevention Lifeline: The National Suicide Prevention Lifeline is a national network of local crisis centers that provides free and confidential emotional support to people in suicidal crisis or emotional distress 24 hours a day, 7 days a week. Don't Wait! Stop a Heart Attack Before it Starts What is a heart attack? A heart attack is damage or to a part of the heart from severely decreased or lack of blood flow to the heart. Over time, arteries can become narrow from the buildup of fat and cholesterol, which is called plaque. The plaque can rupture causing a blood clot to form. When the blood clot forms, the artery can become severely narrowed or completely blocked, causing a heart attack. Heart attack is the leading cause of in the [place]. 85% of muscle damage occurs within the first 2 hours. Delay in the recognition of heart attack symptoms increases the chances of . Know the early symptoms of a heart attack: Nausea Feeling of fullness in chest Jaw Pain Pain that travels down one or both arms Fatigue/being tired Anxiety Back Pain Chest pressure, squeezing, or discomfort Shortness of breath Sweating, or a cold sweat Feeling of impending doom There are unusual signs of a heart attack, too! Women, the elderly, and diabetics may present with atypical symptoms: Fainting/dizziness Weakness Confusion Risk Factors for a Heart Attack Some heart disease risk factors, such as age and family history, cannot be changed. Others, like smoking and lack of exercise, can be changed. Smoking High Cholesterol High Blood Pressure Family History Obesity Age Gender (Males are at higher risk) Lack of Exercise Diabetes Diet Stress Excessive Alcohol Intake If you or someone you know is experiencing the signs and symptoms of a heart attack, DON???T DELAY. Call immediately and seek help. If someone collapses, perform CPR! Do not attempt to drive if you are having symptoms of heart attack. Hands-Only CPR Why Hands-Only CPR? Hands-Only CPR has been shown to be as effective as conventional CPR for cardiac arrests that occur outside of a hospital. Survival depends on immediately receiving CPR from someone nearby. How do you perform Hands-Only CPR? There are two easy steps: Call if you see a teen or adult collapse Push hard and fast in the center of the chest at a beat of 100 beats per minute. Save a life! 4 WAYS TO GET AHEAD OF SEPSIS SEPSIS is a MEDICAL EMERGENCY. Time matters! Infections put you and your family at risk for a life-threatening condition called sepsis. Sepsis is the body's extreme response to an infection. It is life-threatening, and without timely treatment, sepsis can rapidly lead to tissue damage, organ failure, and . Sepsis happens when an infection you already have-in your skin, lungs, urinary tract or somewhere else-triggers a chain reaction throughout your body. 1 PREVENT INFECTIONS Take good care of chronic conditions. Talk to your doctor about getting the recommended vaccines. 2 PRACTICE GOOD HYGIENE Wash your hands frequently. Keep cuts or open sores clean and covered until they are healed. 3 KNOW THE SYMPTOMS Confusion or disorientation Shortness of breath High heart rate Fever, shivering, or feeling very cold Extreme pain or discomfort Clammy or sweaty skin 4 ACT FAST Get medical care IMMEDIATELY if you suspect sepsis or if you have an infection that is not getting better or is getting worse. To learn more about sepsis and how to prevent infections, visit www.cdc.gov/sepsis. Test Results Laboratory or Other Results This Visit (last charted value for your 02/02/2022 visit) Hematology 02/02/2022 8:32 AM Platelet Count: 295 K/uL -- Normal range between ( 163 and 369 ) Patient Name:CHRISTIANO NOLAN I have received and understand this information and was given the opportunity to ask questions. Patient/Therapist Physical Name: Patient/Therapist Physical Signature: Relationship to Patient: Clinician/Hospital Therapist Physical Signature: Date: Electronically signed by Dustin Stewart Conversion [employer]ing Observer Helper Cerner at 01/08/2023 4:08 PM CDT documented in this encounter Plan of Treatment Upcoming Encounters Date Type Department Care Team (Late st Contact Info) Description 04/02/2025 2:00 PM EDT Office Visit [facility] Primary Care - [facility] [address] [place] [address] Mary Anne Mccormack, BLASTING ENTRYMAN [address] [place] [address] 05/20/2025 3:30 PM EDT Office Visit [facility] Orthopedics - [address] [address] Jazmin Bell PA-C [address] [place] [address] documented as of this encounter Visit Diagnoses Not on filedocumented in this encounter Care Teams Front Office Coordinator Relationship Specialty Start Date End Date Lester Shaffer MD PCP - General Family Medicine 08/02/22 12/27/24 Mary Anne Mccormack, NICCI [address] [place] [address] PCP - General Family Medicine 12/29/24 Jazmin Bell PA-C [address] [place] [address] Physician Shaper Operator 04/23/24 12/27/24 documented as of this encounter
--- OUTSIDE RECORDS SUMMARY | 2025-03-29 12:42 | XMS_ITS | Encounter Summary ---
Author Organization [employer] ([place], [place], [place], [place]) Address [address] [place] [address] Care Team Providers Care Reel Worker Name Role Phone Lester Shaffer MD Primary Care Provider [phone] Jazmin Bell PA-C Unavailable [phone] Mary Anne Mccormack APRN Primary Care Provider + Encounter Details Date Type Department Care Team (Late st Contact Info) Description 02/02/2022 Transcribed Document [facility] Family Medicine [facility] [place] [address] ProviderDestiny MD [address] [place] [address] Social History Tobacco Use Types Packs/Day Years Used Date Smoking Tobacco: Never Assessed [facility] - Mental Health Answer Date Recorde [...] Date Imer rded Speak language other than Northern Irish at home Not on file 10/02/2023 Want [...] Conversion Note - Historical ProviderMD - 02/02/2022 10:53 AM CDT Patient Education Materials Follows: Managing Your Hypertension Hypertension, also called high [...] pressure: below 80. Elevated ??? Systolic pressure: 120?129. ??? Diastolic pressure: below 80. Hypertension stage 1 ??? Systolic pressure: 130?139. ??? Diastolic pressure: 80?89. Hypertension stage 2 ??? Systolic pressure: 140 [...] Limit how much you use to: ? 0?1 drink a day for women. ? 0?2 drinks a day for men. ? Be aware of how much alcohol is in your drink. In the [place] one drink equals one 12 oz bottle of beer (355 mL), one 5 oz glass of wine (148 mL), or one 1? oz glass of hard liquor (44 mL). [...] information ??? National Heart, Lung, and Blood [place]: www.nhlbi.nih.gov ??? [place] [employer]: www.heart.org Contact a health care [...] provider. Document Revised: 10/14/2020 Document Reviewed: 08/09/2020 [employer] Patient Education ? 2020 [employer] Inc. Forms Blood Pressure Record Sheet To take your [...] makes sure the results are correct. Wait 1?2 minutes between measurements. ??? Write down the [...] 12/28/2020 Document Reviewed: 12/28/2020 Elsevier Patient Education ? 2020 Elsevier Inc. Pharmacology Moderate Conscious Sedation, Adult, Care After This [...] eating solid foods. General instructions ??? Take okai-ggw-blhugbo and prescription medicines only as told by [...] provider. Document Revised: 01/06/2021 Document Reviewed: 08/04/2020 [employer] Patient Education ? 2020 [employer]. Radiology Coronary Angiogram A coronary angiogram is an [...] including vitamins, herbs, eye drops, creams, and qzpl-tcq-zolkjlq medicines. ??? Any problems you or family [...] Up to 2 hours before the procedure ? you may continue to drink clear liquids, such as water, clear fruit juice, black coffee, and plain tea. Eating and drinking restrictions Follow instructions from your health care provider about eating and drinking, which may include: ??? 8 hours before the procedure ? stop eating heavy meals or foods, such as meat, fried foods, or fatty foods. ??? 6 hours before the procedure ? stop eating light meals or foods, such as toast or cereal. ??? 6 hours before the procedure ? stop drinking milk or drinks that contain milk. ??? 2 hours before the procedure ? stop drinking clear liquids. Medicines Ask your [...] do not normally take it. ??? Taking fuzw-gkp-srlshog medicines, vitamins, herbs, and supplements. General instructions [...] provider. Document Revised: 03/31/2020 Document Reviewed: 03/31/2020 [employer] Patient Education ? 2020 [employer]. Coronary Angiogram, Care After This sheet gives [...] and water are not available, use hand comprehensive advisor. ? Change your dressing as told by your health care provider. ??? Do not take baths, swim, or use a hot tub until your health care provider approves. ??? You may shower 24?48 hours after the procedure, or as told [...] You may be asked to rest for 1?2 days. ??? Do not lift anything that [...] This is a medical emergency. ??? Take gpdq-iou-ptffnwo and prescription medicines only as told by [...] health care provider approves. You may shower 24?48 hours after the procedure or as told. [...] provider. Document Revised: 07/13/2020 Document Reviewed: 07/13/2020 [employer] Patient Education ? 2020 [employer]. Electronically signed by Dustin Stewart Conversion Assistant Chief Nursing Officer Cerner at 01/08/2023 4:17 PM CDT documented in this encounter Plan of Treatment Upcoming Encounters Date Type Department Care Team (Late st Contact Info) Description 04/02/2025 2:00 PM EDT Office Visit [facility] Primary Care - [facility] [address] [place] [address] Mary Anne Mccormack, INVASIVE MANAGER [address] [place] [address] 05/20/2025 3:30 PM EDT Office Visit [facility] Orthopedics - [address] [phone] Jazmin Bell PA-C [address] [place] [address] documented as of this encounter Visit Diagnoses Not on filedocumented in this encounter Care Teams Reel Worker Relationship Specialty Start Date End Date Lester Shaffer MD PCP - General Family Medicine 08/02/22 12/27/24 Mary Anne Mccormack, INVASIVE MANAGER [address] [place] [address] PCP - General Family Medicine 12/29/24 Jazmin Bell PA-C [address] [place] [address] Physician Track Equipment Operator 04/23/24 12/27/24 documented as of this encounter
--- OUTSIDE RECORDS SUMMARY | 2025-03-29 12:42 | XMS_ITS | Encounter Summary ---
Author Organization [employer] ([place], [place], [place], [place]) Address [address] [place] [address] Care Team Providers Care Certified Alcohol Counselor Name Role Phone Lester Shaffer MD Primary Care Provider [phone] Jazmin Bell PA-C Unavailable [phone] Mary Anne Mccormack APRN Primary Care Provider + Reason for Visit * Reason Comments Medication Refill Encounter Details Date Type Department Care Team (Late st Contact Info) Description 01/16/2024 Refill [facility] Orthopedics - [address] [phone] Buddy Daniel DPM [address] [place], [place] [id number] Social History Tobacco Use Types Packs/Day Years Used Date Smoking Tobacco: Former Cigarettes 2 1 98 - 2005 Smokeless Tobacco: Never Alcohol Use Standard Drinks/Week Comments Not Currently 0 (1 standard drink = 0.6 oz pur e alcohol) 6 monthsago Family and Community Support Answer Sanjeev e Recorded Help with Day to Day Activities Not on file 10/02/2023 Feeling Lonely or Isolated Not on file 10/02 Educational Attainment Answer Date Imer rded Speak language other than Djiboutian at home Not on file 10/02/2023 Want [...] Description 04/02/2025 2:00 PM EDT Office Visit [facility] Primary Care - [facility] [address] [place] [address] Mary Anne Mccormack, SHELLFISH BED WORKER [address] [place] [address] 05/20/2025 3:30 PM EDT Office Visit [facility] Orthopedics - [address] [phone] Jazmin Bell PA-C [address] [place] [address] documented as of this encounter Visit Diagnoses Not on filedocumented in this encounter Care Teams Certified Alcohol Counselor Relationship Specialty Start Date End Date Lester Shaffer MD PCP - General Family Medicine 08/02/22 12/27/24 Mary Anne Mccormack SHELLFISH BED WORKER [address] [place] [address] PCP - General Family Medicine 12/29/24 Jazmin Bell PA-C [address] [place] [address] Physician Manager Business Intelligence 04/23/24 12/27/24 documented as of this encounter
--- OUTSIDE RECORDS SUMMARY | 2025-03-29 12:42 | XMS_ITS | Referral Summary ---
Author Organization [employer] ([place], [place], [place], [place]) Address [address] [place] [address] Care Team Providers Care Real Estate Professor Name Role Phone Mary Anne Mccormack APRN Primary Care Provider + Encounters Date Type Department Care Team Description 02/26/2025 Travel 02/26/2025 2:00 PM EDT Office Visit [facility] Primary Care - [facility] [address] [place] [phone] Mary Anne Mccormack APRN Polyarthropathy (Primary Dx) 02/18/2025 3:54 PM EDT - 02/18/2025 11:59 PM EDT Hospital Encounter [facility] Diagnostic Imaging [address] [place] [phone] Shoulder pain, left Discharge Disposition: Home or Self Care 02/18/2025 3:53 PM EDT Hospital Encounter [facility] Diagnostic [facility] [address] [place] [phone] Shoulder pain, left Discharge Disposition: Home or Self Care 02/18/2025 3:45 PM EDT - 02/18/2025 3:52 PM EDT Hospital Encounter [facility] Diagnostic Imaging [address] [place] [phone] Neck pain Discharge Disposition: Home or Self Care 02/18/2025 4:30 PM EDT Lab Patient Walk-In [facility] Lab [address] [place] [phone] Vitamin D deficiency (Primary Dx) 02/18/2025 Travel 02/18/2025 3:15 PM EDT Office Visit [address] [phone] Aleja Enamorado APRN Muscle strain (Primary Dx); Shoulder pain, left; Neck pain; Radiculopathy; Polyarthropathy 02/17/[address] [phone] Aleja Enamorado APRN PATIENT REFUSED [facility] PARAMEDIC 02/17/2025 3:45 PM EDT Office Visit [facility] Orthopedics [address] [phone] Jazmin Bell PA-C Localized osteoarthritis of right knee (Primary Dx); Primary osteoarthritis of first carpometacarpal joint of left hand 01/04/[address] [phone] Lester Shaffer MD Anxiety 12/29/[address] [phone] Mary Anne Mccormack APRN Medication Problem 12/29/2024 1:00 PM EDT Office Visit [address] [phone] Mary Anne Mccormack APRN Muscle strain (Primary Dx); Acute otitis media, unspecified otitis media type; Primary hypertension; ED (erectile dysfunction); Mixed hyperlipidemia; Elevated glucose; Encounter for prostate cancer screening from Last 3 Months Allergies No known active allergies Medications loratadine (CLARITIN) 10 mg tablet Take by mouth. Active aspirin 81 MG EC tablet Take 1 tablet (81 mg total) by mouth daily. Active valsartan (DIOVAN) 160 MG tablet Take 1 tablet (160 mg total) by mouth daily Roxi Calderon. Active ferrous sulfate 325 (65 FE) MG tablet Take 1 tablet (325 mg total) by mouth daily with breakfast. Active amLODIPine (NORVASC) 10 MG tablet Take 1 tablet (10 mg total) by mouth daily Roxi Drew. 11/28/2022 Active lovastatin (MEVACOR) 20 MG tablet Take 1 tablet (20 mg total) by mouth daily. 11/28/2022 Active cholecalciferol, vitamin D3, 75 mcg (3,000 unit) Tab Take 1 tablet (3,000 Units total) by mouth daily. Active acetaminophen (TYLENOL) 650 MG CR tablet Take 2 tablets (1,300 mg total) by mouth 3 (three) times daily. Active fenofibrate (TRICOR) 48 MG tablet Take 1 tablet (48 mg total) by mouth daily. Active omeprazole (PriLOSEC) 40 MG capsuleIndicatio ns:Gastroesophag eal reflux disease, unspecified whether esophagitis present Take 1 capsule (40 mg total) by mouth daily. 30 capsule 10/12/2024 Active neomycin-polymyx in-hydrocortison e (CORTISPORIN) 3.5-10,000-1 mg/mL-unit/mL-% otic suspension Place 3 drops into the left ear 4 (four) times daily. 10 mL 10/12/2024 Active tirzepatide (Mounjaro) 2.5 mg/0.5 mL pnij Inject 2.5 mg under the skin every 7 days. 2 mL 12/07/2024 Active celecoxib (CeleBREX) 200 MG capsule Take 1 capsule (200 mg total) by mouth daily for 120 days. 30 capsule 3 12/16/2024 04/15/20 25 Active tadalafiL, pulm. hypertension, (ADCIRCA) 20 mgIndications:ED (erectile dysfunction) Take 1 tablet (20 mg total) by mouth daily. 10 tablet 2 12/29/2024 Active citalopram (CeleXA) 20 MG tabletIndication s:Anxiety TAKE 1 TABLET BY MOUTH DAILY 90 tablet 3 01/05/2025 Active DULoxetine (CYMBALTA) 30 MG capsuleIndicatio ns:Polyarthropat hy Take 1 capsule (30 mg total) by mouth daily. 90 tablet 02/26/2025 02/27/20 26 Active Hospital, Clinic, or Other Facility Administered Medication Ordered Dose Route Frequency Start Date End Date Status methylPREDNISolone acetate (DEPO-MEDROL) injection 80 mgIndications:Localized primary osteoarthritis of carpometacarpal (CMC) joint of left wrist 80 mg IAtc Once 08/02/2022 Active sodium hyaluronate (ORTHOVISC) 30 mg/2 mL syringe 30 mgIndications:Localized osteoarthritis of right knee 30 mg IAtc Once 08/02/2022 Active sodium hyaluronate (ORTHOVISC) 30 mg/2 mL syringe 30 mgIndications:Localized osteoarthritis of right knee 30 mg IAtc Once 08/09/2022 Active methylPREDNISolone acetate (DEPO-MEDROL) injection 80 mgIndications:Primary osteoarthritis of first carpometacarpal joint of right hand 80 mg IAtc Once 08/15/2022 Active lidocaine (XYLOCAINE) injection 1%Indications:Primary osteoarthritis of first carpometacarpal joint of right hand 1 mL IAtc Once 08/15/2022 Active sodium hyaluronate (ORTHOVISC) 30 mg/2 mL syringe 30 mgIndications:Primary osteoarthritis of right knee 30 mg IAtc Once 08/15/2022 Active Active Problems Problem Noted Date Diagnosed Date Primary osteoarthritis of fi rst carpometacarpal joint of left hand 02/17/2025 ED (erectile dysfunction) 12/29/2024 Elevated glucose 12/29/2024 Encounter for prostate cancer screening 12/30/19 25 Acute otitis media, unspecified otitis media typ e 12/29/2024 Muscle strain 12/29/2024 Pseudarthrosis after fusion or arthrodesis, righ t foot 07/25/2023 S/P foot surgery, right 01/03/2023 Overview (01/03/2023): (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 12/21/22 CLAUDIA (obstructive sleep apnea) 12/21/2022 HTN (hypertension) 12/21/2022 Gastroesophageal reflux disease 12/21/2022 Obesity, Class III, BMI 40-49.9 (morbid obesity) 12/21/2022 Hyperlipidemia 12/21/2022 Primary osteoarthritis of fi rst carpometacarpal joint of right hand 08/15/2022 Primary osteoarthritis of right knee 08/15/2022 Localized osteoarthritis of right knee Localized primary osteoarthr itis of carpometacarpal (CMC) joint of left wrist 08/02/2022 Social History Tobacco Use Types Packs/Day Years Used Date Smoking Tobacco: Former Cigarettes 2 25 1 981 - 2006 Smokeless Tobacco: Never Tobacco Cessation:Counseling Given: Not Answered Alcohol Use Standard Drinks/Week Comments Not Currently 0 (1 standard drink = 0.6 oz pur e alcohol) 6 monthsago [facility] - Mental Health Answer Date Recorde d [...] Date Imer rded Speak language other than Haitian at home Not on file 10/02/2023 Want [...] on file Sexual Orientation Not on file Last Filed Vital Signs Vital Sign Reading Time Taken Comments Blood Pressure 122/86 02/26/2025 1:51 PM EDT Pulse 72 02/26/2025 1:51 PM EDT Temperature 36.1 C (97 F) 12/21/2022 11:04 AM EDT Respiratory Rate 18 05/02/2023 4:45 PM EDT Oxygen Saturation 96% 02/26/2025 1:51 PM EDT Inhaled Oxygen Concentration - - Weight 142.9 kg (315 lb) 02/26/2025 1:51 PM EDT Height 177.8 cm (5' 10 ) 02/18/2025 2:56 PM EDT Body Mass Index 45.2 02/18/2025 2:56 PM EDT Plan of Treatment Upcoming Encounters Date Type Department Care Team (Late st Contact Info) Description 04/02/2025 2:00 PM EDT Office Visit [facility] Primary Care - [facility] [address] [place] [phone] Mary Anne Mccormack Jade, HIV PREVENTION SPECIALIST [address] [place] [address] 05/20/2025 3:30 PM EDT Office Visit [facility] Orthopedics - [address] [phone] Jazmin Bell PA-C [address] [place] [phone] Medical Devices Implanted Type Area Quality Assurance Qa Lab Technician Device Identifier Shelf Expiration Date Model / Serial / Lot Kwire Sngl Smooth [id number] - [id number] Implanted:Qty: 1 on 12/21/2022 by Buddy Daniel DPM at [facility] IMPLANTS Right: Foot PARAGON 28 [id number] 15 / / Kwire Smooth 1.6x150 Mm [id number] - [id number] Implanted:Qty: 1 on 12/21/2022 by Buddy Daniel DPM at [facility] IMPLANTS Right: Foot PARAGON 28 [id number] 15 / / Plt Mtp 5 Gft [id number] - [id number] Implanted:Qty: 1 on 12/21/2022 by Buddy Daniel DPM at [facility] IMPLANTS Right: Foot PARAGON 28 [id number] 52 / / Wire [place] Smooth 1.4 Mm [id number] - [id number] Implanted:Qty: 2 on 12/21/2022 by Buddy Daniel DPM at [facility] IMPLANTS Right: Foot PARAGON 28 [id number] 06 / / Scr Ash R3con 3.5x14mm [id number] - [id number] Implanted:Qty: 3 on 12/21/2022 by Buddy Daniel DPM at [facility] IMPLANTS Right: Foot PARAGON 28 [id number] 14 / / Scr Ash R3con 3.5x16mm [id number] - [id number] Implanted:Qty: 2 on 12/21/2022 by Buddy Daniel DPM at [facility] IMPLANTS Right: Foot PARAGON 28 [id number] 16 / / Scr Ash R3con 3.5x18mm [id number] - [id number] Implanted:Qty: 1 on 12/21/2022 by Buddy Daniel DPM at [facility] IMPLANTS Right: Foot PARAGON 28 [id number] 18 / / Scr Gorilla Nonlk R3con 3.5x14 [id number] - [id number] Implanted:Qty: 1 on 12/21/2022 by Buddy Daniel DPM at [facility] IMPLANTS Right: Foot PARAGON 28 [id number] 14 / / Disc Mtp 5x21mm [id number] - [id number] Implanted:Qty: 1 on 12/21/2022 by Buddy Daniel DPM at [facility] IMPLANTS Right: Foot PARAGON 28 [id number] / / 21mm Male Reamer Implanted:Qty: 1 on 12/21/2022 by Buddy Daniel DPM at [facility] Right: Foot PARAGON 28 [id number] 01 / / 21mm Female Reamer Implanted:Qty: 1 on 12/21/2022 by Buddy Daniel DPM at [facility] Right: Foot PARAGON 28 [id number] 02 2.4 Drill Implanted:Qty: 1 on 12/21/2022 by Buddy Daniel DPM at [facility] Right: Foot PARAGON 28 [id number] 14 / / Procedures Procedure Name Priority Date/Time Associated Diagnosis Comments CHER REFLEXIVE PROFILE(SENDOUT) Routine 02/18/2025 4:22 PM EDT Vitamin D deficiency CBC W/ AUTO DIFF Routine 02/18/2025 4:22 PM EDT Vitamin D deficiency RHEUMATOID FACTOR(SENDOUT) Routine 02/18/2025 4:22 PM EDT Vitamin D deficiency SEDIMENTATION RATE Routine 02/18/2025 4: 22 PM EDT Polyarthropathy COMPREHENSIVE METABOLIC PANEL Routine 02/18/2025 4:22 PM EDT Polyarthropathy XR SHOULDER COMPLETE 2 VIEWS MIN LEFT Routine 02/18/2025 4:04 PM EDT Shoulder pain, left XR CLAVICLE BILATERAL Routine 02/18/2025 4:03 PM EDT Shoulder pain, left XR SPINE CERVICAL 2 OR 3 VIEWS Routine 02/18/2025 4:03 PM EDT Neck pain LIPID PANEL Routine 10/12/2024 9:23 AM EST Mixed hyperlipidemia from Last 3 Months or Most Recently Relevant to Health Maintenance Results * (ABNORMAL) CBC with automated diff (02/18/2025 4:22 PM EDT) WBC 11.5(H) 4.8 - 10.8 K/ L 02/18/2025 4:32 PM EDT [facility] RBC 4.65 3.80 - 5.20 M/ L 02/18/2025 4:32 PM EDT [facility] Hemoglobin 14.1 12.8 - 17.4 GM/DL 02/18/2025 4:32 PM EDT [facility] Hematocrit 40.1 39.0 - 51.0 % 02/18/2025 4:32 PM EDT [facility] MCV 86 81 - 101 fL 02/18/2025 4:32 PM EDT [facility] MCH 30.3 27.0 - 34.0 pg 02/18/2025 4:32 PM EDT [facility] MCHC 35.2 32.0 - 36.0 GM/DL 02/18/2025 4:32 PM EDT [facility] RDW 13.1 11.5 - 14.5 % 02/18/2025 4:32 PM EDT [facility] Platelets 317 150 - 400 K/CU MM 02/18/2025 4:32 PM EDT [facility] MPV 10.0 9.4 - 12.4 fL 02/18/2025 4:32 PM EDT [facility] Nucleated Red Blood Cell 0.0 0 - 0.2 % 02/18/2025 4:32 PM EDT [facility] % Neutros 87(H) 37 - 80 % 02/18/2025 4:32 PM EDT [facility] % Lymphs 8(L) 10 - 50 % 02/18/2025 4:32 PM EDT [facility] % Monos 5 5 - 13 % 02/18/2025 4:32 PM EDT [facility] % Eos 0 0 - 7 % 02/18/2025 4:32 PM EDT [facility] % Baso 0 0 - 3 % 02/18/2025 4:32 PM EDT [facility] NRBC Absolute <0.01 0 - 0.012 K/ul 02/18/2025 4:32 PM EDT [facility] # Neutros 9.99(H) 2.00 - 6.90 K/ L 02/18/2025 4:32 PM EDT [facility] # Lymphs 0.90 0.60 - 3.40 K/ L 02/18/2025 4:32 PM EDT [facility] # Monos 0.56 0.00 - 0.90 K/ L 02/18/2025 4:32 PM EDT [facility] # Eos 0.00 0.00 - 0.70 K/ L 02/18/2025 4:32 PM EDT [facility] # Baso 0.01 0.00 - 0.20 K/ L 02/18/2025 4:32 PM EDT [facility] Immature Granulocytes-Re lative 0.50 % 02/18/2025 4:32 PM EDT [facility] # IG 0.06(H) 0.00 - 0.00 K/uL 02/18/2025 4:32 PM EDT [facility] Blood Venipuncture / Unknown 02/18/2025 4:22 PM EDT 02/18/2025 4:22 PM EDT Narrative [facility] - 02/18/2025 4:32 PM EDT When [...] Enamorado APRN LAB BLOOD ORDERABLES Final Result [facility] [address] [place] [address], [facility] [phone] * Rheumatoid Factor(SENDOUT) (02/18/2025 4:22 PM EDT) [facility] Rheumatoid Factor <10 0 - 14 IU/mL 02/21/2025 11:53 PM EDT [facility] Comment: Performed By: [facility] [address] [place] [address] Canal Tender: Tevin Marshall MD, PhD CLIA Number: [id number] Blood Venipuncture / Unknown 02/18/2025 4:22 PM EDT 02/18/2025 4:22 PM EDT Aleja Enamorado APRN LAB BLOOD ORDERABLES Final Result Performing Organization Address [facility]/ZIP Co de Phone Number [facility] [address] [place] [address], [facility] [phone] * CHER Reflexive Profile(SENDOUT) (02/18/2025 4:22 PM EDT) Pathologist [facility] Anti-Nuclear Ab (CHER), IgG by [facility] None Detected None Detected 02/21/2025 7:02 AM EDT [facility] Comment: No Anti-Nuclear Antibodies (CHER) detected by [facility]. The Extractable Nuclear Antigen Antibodies (POOLROOM/POOLHALL MANAGER, Vaca, SSA 52, SSA 60, Scleroderma, Rhiannon-1 and SSB) and Double Stranded DNA (dsDNA) Antibody, IgG will not be performed. If suspicion of connective tissue disease is strong, and CHER is negative by [facility], consider testing for CHER by IFA ([id number]). INTERPRETIVE INFORMATION: Anti-Nuclear Antibodies (CHER), IgG by [facility] Antinuclear Antibodies (CHER), IgG by [facility]: CHER specimens are screened using enzyme-linked immunosorbent assay ([facility]) methodology. All [facility] results reported as Detected are further tested by indirect fluorescent assay (IFA) using HEp-2 substrate with an IgG-specific conjugate. The CHER [facility] screen is designed to detect antibodies against dsDNA, histones, SS-A (Ro), SS-B (La), Vaca, Vaca/POOLROOM/POOLHALL MANAGER, Scl-70, Rhiannon-1, centromeric proteins, other antigens extracted from the HEp-2 cell nucleus. CHER [facility] assays have been reported to have lower sensitivities than CHER IFA for systemic autoimmune rheumatic diseases (SARD). Negative results do not necessarily rule out SARD. Performed By: [facility] [address] [place] [address] Canal Tender: Tevin Marshall MD, PhD CLIA Number: [id number] Blood Venipuncture / Unknown 02/18/2025 4:22 PM EDT 02/18/2025 4:22 PM EDT Aleja Enamorado APRN LAB BLOOD ORDERABLES Final Result Performing Organization Address City/[facility]/ZIP Co de Phone Number [facility] [address] [place], [place] [id number], [facility] [phone] * Sedimentation rate (02/18/2025 4:22 PM EDT) Sed Rate 8 0 - 20 mm/HR 02/18/2025 4:52 PM EDT [facility] Blood Venipuncture / Unknown 02/18/2025 4:22 PM EDT 02/18/2025 4:22 PM EDT Aleja Enamorado APRN LAB BLOOD ORDERABLES Final Result [facility] [address] [place] [address], [facility] [phone] * (ABNORMAL) Comprehensive metabolic panel (02/18/2025 4:22 PM EDT) Sodium 136 136 - 145 meq/L 02/18/2025 4:46 PM EDT [facility] Potassium 4.2 3.5 - 5.1 meq/L 02/18/2025 4:46 PM EDT [facility] Chloride 102 98 - 107 meq/L 02/18/2025 4:46 PM EDT [facility] CO2 25 21 - 32 meq/L 02/18/2025 4:46 PM EDT [facility] Calcium 9.0 8.5 - 10.1 mg/dL 02/18/2025 4:46 PM EDT [facility] Glucose 151(H) 70 - 99 mg/dL 02/18/2025 4:46 PM EDT [facility] BUN 28(H) 7 - 18 mg/dL 02/18/2025 4:46 PM EDT [facility] Creatinine 1.34(H) 0.70 - 1.20 mg/dL 02/18/2025 4:46 PM EDT [facility] BUN/Creatinine 21 02/18/2025 4:46 PM EDT [facility] Albumin 3.9 3.4 - 5.0 g/dL 02/18/2025 4:46 PM EDT [facility] Alkaline Phosphatase 49 46 - 116 U/L 02/18/2025 4:46 PM EDT [facility] ALT 30 12 - 78 U/L 02/18/2025 4:46 PM EDT [facility] AST 17 15 - 37 U/L 02/18/2025 4:46 PM EDT [facility] Total Bilirubin 0.4 0.2 - 1.0 mg/dL 02/18/2025 4:46 PM EDT [facility] Protein, Total 7.9 6.4 - 8.2 gm/dL 02/18/2025 4:46 PM EDT [facility] Anion Gap 13 11 - 22 02/18/2025 4:46 PM EDT [facility] A/G Ratio 1.0 02/18/2025 4:46 PM EDT [facility] Globulin 4.0 g/dL 02/18/2025 4:46 PM EDT [facility] Osmolality Calc 280.3 mOsm/kg 4:46 PM EDT [facility] eGFR (mL/min/1.73m2) 60 >=60 mL/min/1.7 3m2 02/18/2025 4:46 PM EDT [facility] Comment:ESTIMATED GFR IS NOT ACCURATE CREATININE CLEARANCE IN PREDICTING GLOMERULAR FILTRATION RATE. ESTIMATED GFR IS NOT APPLICABLE FOR DIALYSIS PATIENTS. Blood Venipuncture / Unknown 02/18/2025 4:22 PM EDT 02/18/2025 4:22 PM EDT Aleja Enamorado HIV PREVENTION SPECIALIST LAB BLOOD ORDERABLES Final Result [facility] [address] [place] [address] * XR shoulder complete 2 views min [...] by Jean Marie Bellamy DO Aleja Enamorado HIV PREVENTION SPECIALIST [facility] DIAGNOSTIC IMAGING ORD ERABLES Final Result * [...] maintained and are symmetric. IMPRESSION: Negative. Aleja Enamorado APRN [facility] DIAGNOSTIC IMAGING ORD ERABLES Final Result * [...] and dictated by Jean Marie Bellamy DO us Aleja Enamorado APRN IMG DIAGNOSTIC IMAGING ORD ERABLES Final Result * (ABNORMAL) Lipid panel (10/12/2024 9:23 AM EST) Cholesterol, Total 152 100 - 199 mg/dL [facility] Triglycerides 251(H) 0 - 149 mg/dL [facility] HDL Cholesterol 33(L) >39 mg/dL [facility] VLDL Cholesterol [place] 41(H) 5 - 40 mg/dL [facility] LDL Calculated 78 0 - 99 mg/dL [facility] Blood 10/12/2024 9:23 AM EST 10/12/2024 Narrative [facility] - 10/13/2024 5:06 AM EST Performed at: 01 - [facility] [address] [id number] Aircraft Detail Draftsperson: Randy Ulrich PhD, Phone: [phone] us Lester Shaffer MD LAB BLOOD ORDERABLES Final Result [facility] from Last 3 Months or Most Recently Relevant to Health Maintenance [facility] Member Subscriber Plan / Payer (Ef fective 2024-Present) Name:Christiano Nolan Relation to Subscriber:Self Name:Christiano Nolan Payer ID:[id number] Group ID:[id number] Type:Not on file Address: [facility] [address] [place] [phone] [facility] ADV Member Subscriber Plan / Payer (Ef fective for All Dates) Name:Christiano Nolan Relation to Subscriber:Self Name:Christiano Nolan Payer ID:[id number] Group ID:Not on file Type:Not on file Address: [address] [place] [id number] Care Teams Real Estate Professor Relationship Specialty Start Date End Date Mary Anne Mccormack, NICCI [address] [place] [address] PCP - General Family Medicine 12/29/24
--- OUTSIDE RECORDS SUMMARY | 2025-03-29 12:42 | XMS_ITS | Encounter Summary ---
Author Organization [employer] ([place], [place], [place], [place]) Address [address] [place] [address] Care Team Providers Care Awning Hanger Helper Name Role Phone Lester Shaffer MD Primary Care Provider [phone] Jazmin Bell PA-C Unavailable [phone] Mary Anne Mccormack APRN Primary Care Provider + Reason for Visit * Reason Onset Date Comments Injection Complication 11/30/2024 Encounter Details Date Type Department Care Team (Late st Contact Info) Description 11/30/2024 Telephone [facility] Orthopedics - [address] [phone] Jazmin Bell PA-C [address] [place] [phone] Injection Complication Social History Tobacco Use Types Packs/Day Years [...] Date Imer rded Speak language other than Iranian at home Not on file 10/02/2023 Want [...] on file documented as of this encounter Miscellaneous Notes * Telephone Encounter - Ana Maria Cosme - 11/30/2024 4:30 PM EDT Patient was given left 1st [facility] injection on 11/19/24. He reports that about 4-5 days ago a knot popped on the hand. He wanted to check on the status of this. documented in this encounter Plan of Treatment Upcoming Encounters Date Type Department Care Team (Late st Contact Info) Description 04/02/2025 2:00 PM EDT Office Visit [facility] Primary Care - [facility] [address] [place] [address] Mary Anne Mccormack, CALCINER FEEDER [address] [place] [address] 05/20/2025 3:30 PM EDT Office Visit [facility] Orthopedics - [address] [phone] Jazmin Bell PA-C [address] [place] [phone] documented as of this encounter Visit Diagnoses Not on filedocumented in this encounter Care Teams Awning Hanger Helper Relationship Specialty Start Date End Date Lester Shaffer MD PCP - General Family Medicine 08/02/22 12/27/24 Mary Anne Mccormack CALCINER FEEDER [address] [place] [address] PCP - General Family Medicine 12/29/24 Jazmin Bell PA-C [address] [place], [place] [phone] Physician Publishing Manager 04/23/24 12/27/24 documented as of this encounter
--- OUTSIDE RECORDS SUMMARY | 2025-03-29 12:42 | XMS_ITS | Encounter Summary ---
Author Organization [employer] ([place], [place], [place], [place]) Address [address] [place] [address] Care Team Providers Care Lumber Piler Name Role Phone MccormackMary Anne hernandez Jade GRAJEDA Primary Care Provider + Encounter Details Date Type Department Care Team (Latest Contact Info) Description 02/26/2025 Travel Social History Tobacco Use Types Packs/Day Years Used Date Smoking Tobacco: Former Cigarettes 2 - 2005 Smokeless Tobacco: Never Alcohol Use Standard Drinks/Week Comments Not Currently 0 (1 standard drink = 0.6 oz pur e alcohol) 6 monthsago [facility] - Mental Health Answer Date [...] Date Imer rded Speak language other than Malagasy at home Not on file 10/02/2023 Want [...] Description 04/02/2025 2:00 PM EDT Office Visit [facility] Primary Care - [facility] [address] [place] [address] Mary Anne Mccormack, NICCI [address] [place] [address] 05/20/2025 3:30 PM EDT Office Visit [facility] Orthopedics - [address] [phone] Jazmin Bell PA-C [address] [place] [phone] documented as of this encounter Visit Diagnoses Not on filedocumented in this encounter Care Teams Lumber Piler Relationship Specialty Start Date End Date Mary Anne Mccormack APRN [address] [place] [address] PCP - General Family Medicine 12/29/24 documented as of this encounter
--- OUTSIDE RECORDS SUMMARY | 2025-03-29 12:42 | XMS_ITS | Encounter Summary ---
Author Organization [employer] ([place], [place], [place], [place]) Address [address] [place] [address] Care Team Providers Care Clothing Patternmaker Name Role Phone Lester Shaffer MD Primary Care Provider [phone] Jazmin Bell PA-C Unavailable [phone] Mary Anne Mccormack APRN Primary Care Provider + Encounter Details Date Type Department Care Team (Late st Contact Info) Description 02/02/2022 Transcribed Document [facility] Family Medicine [facility] [place] [address] ProviderDestiny MD [address] [place] [address] Social History Tobacco Use Types Packs/Day Years Used Date Smoking Tobacco: Never Assessed [facility] - Mental Health Answer Date Recorde d [...] Date Imer rded Speak language other than St Helenian at home Not on file 10/02/2023 Want [...] Notes * Cerner Conversion Note - Historical Provider, - 02/02/2022 10:06 AM CDT DATE OF SERVICE: LEFT HEART CATHETERIZATION REPORT INDICATION: Lifestyle limiting dyspnea equivalent angina, anterolateral ischemia by Lexiscan Cardiolite perfusion study. ADDITIONAL REFERRING PHYSICIANS: 1. Lester Shaffer. 2. Shira Drew APRN. PROCEDURE: Standard left heart catheterization. TECHNIQUE: A 5/6-Mohawk sheath was placed in the right radial artery. Guanako catheter was used for selective angiography of the right coronary artery and measuring pressures in the left ventricle. Pressures were recorded during pullback of the catheter from the left ventricle to the ascending aorta. JL3.5 diagnostic catheter was used for selective angiography of left coronary artery system. Following the diagnostic catheterization, the radial artery sheath was removed and the access site successfully compressed using a TR band. No complications. The patient received moderate conscious sedation for the procedure including intravenous Versed and fentanyl. He was monitored by me for more than 30 minutes and remained stable hemodynamically without respiratory distress. HEMODYNAMICS: Left ventricle 115/10 mmHg, aorta 115/70 mmHg. DIAGNOSES: 1. Mild coronary artery atherosclerosis. 2. Normal left ventricular filling pressure without gradient across the aortic valve. CORONARY ANATOMY: 1. Left main trunk: Minimally diseased. 2. LAD: Large caliber vessel, which gives rise to several long moderate caliber diagonal branches before extending beyond the apex. Mild atherosclerosis present in the LAD and diagonal branches. 3. Circumflex artery: Large caliber vessel, which gives rise to a long small-caliber high lateral branch, two additional small-caliber lateral branches, a moderate caliber third lateral branch, and a large caliber posterolateral branch. Mild atherosclerosis present in the circumflex artery. 4. Right coronary artery: Dominant vessel. Large caliber vessel which gives rise to a long small caliber posterior descending artery and posterolateral branch. Mild atherosclerosis is present. IMPRESSION: Angiographically, the patient has mild coronary artery atherosclerosis. There is a normal left ventricular filling pressure without gradient across the aortic valve. Optimization of the patient's cardiovascular risk factors including weight reduction, blood pressure control, smoking cessation is recommended. There is no indication for revascularization. /[id number] Benja Lucia MD SSL/AQ / SSL / MODL /[id number] CC: MD Lester Fernández APRN documented in this encounter Plan of Treatment Upcoming Encounters Date Type Department Care Team (Late st Contact Info) Description 04/02/2025 2:00 PM EDT Office Visit [facility] Primary Care - [facility] [address] [place] [address] Mary Anne Mccormack APRN [address] [place] [address] 05/20/2025 3:30 PM EDT Office Visit [facility] Orthopedics - [address] [phone] Jazmin Bell PA-C [address] [place] [address] documented as of this encounter Visit Diagnoses Not on filedocumented in this encounter Care Teams Clothing Patternmaker Relationship Specialty Start Date End Date Lester Shaffer MD PCP - General Family Medicine 08/02/22 12/27/24 Mary Anne Mccormack APRN [address] [place] [address] PCP - General Family Medicine 12/29/24 Jazmin Bell PA-C [address] [place] [address] Physician Technician Helper Instrument 04/23/24 12/27/24 documented as of this encounter
--- OUTSIDE RECORDS SUMMARY | 2025-03-29 12:42 | XMS_ITS | Encounter Summary ---
Author Organization [employer] ([place], [place], [place]) Address [address] [place] [address] Care Team Providers Care Line Haul Owner Operator Name Role Phone Lester Shaffer MD Primary Care Provider [phone] Jazmin Bell PA-C Unavailable [phone] Mary Anne Mccormack APRN Primary Care Provider + Reason for Visit * Reason Onset Date Comments Medication Problem 12/14/2024 Encounter Details Date Type Department Care Team (Late st Contact Info) Description 12/14/2024 Telephone [facility] Primary Care - [facility] [address] [place] [address] Lester Shaffer MD [address] [place] [address] Medication Problem Social History Tobacco Use Types Packs/Day Years [...] Date Imer rded Speak language other than Lao at home Not on file 10/02/2023 Want [...] encounter Miscellaneous Notes * Telephone Encounter - Denny Olmos - 12/15/2024 8:35 AM EDT Called and LVMM advising patient that the Mounjaro was denied due to not being covered under part Dof his insurance. * Telephone Encounter - Nieves JAREN Coffeyshanae Sanchez - 12/14/2024 4:29 PM EDT FROM: Lexus Avila CSN: TO: [facility] 7 CLINICAL SUPERVISOR EVAPORATOR [[id number]] SUBJECT: Medication Related Request PROVIDER: LESTER SHAFFER [[id number]] DEPARTMENT: [facility] [[id number]] ENCOUNTER REASON FOR CALL: MEDICATION PROBLEM [65] ENCOUNTER TYPE: Telephone REASON FOR CALL: Medication prior authorization APPOINTMENT OFFERED? No LAST VISIT DATE IS NOT APPLICABLE: Yes NEXT VISIT DATE IS NOT APPLICABLE: Yes MESSAGE PRIORITY: High ADDITIONAL INFORMATION: Patient is calling in again checking status of the PA for Mounjaro. He has been going back and forth, he says, with Pharmacy since 12/07/24 over this medication and he thoughthe had it straightened out but then went back today and they advised again that they are waiting onprior authorization which prompted patient to call us. Please call patient and give update on status of PA for Mounjaro prescription. MEDICATION 1: MEDICATION TYPE: Non controlled RX MEDICATION NAME: tirzepatide (Mounjaro) 2.5 mg/0.5 mL pnij MEDICATION ID: [id number] ORDERING PROVIDER: Lester Shaffer MD MEDICATION DETAILS: Inject 2.5 mg under the skin every 7 days. PREFERRED PHARMACY? [facility] [id number] - [place], [place] - [address] [facility] [address] CALLER'S NAME: Christiano Nolan RELATION TO PATIENT: Self [1] PREFERRED LANGUAGE: Lao BEST CALL BACK PHONE NUMBER: Mobile Phone: ([phone]) WHAT IS THE BEST WAY FOR THE OFFICE TO CONTACT YOU?: OK to leave message on voicemail documented in this encounter Plan of Treatment Upcoming Encounters Date Type Department Care Team (Late st Contact Info) Description 04/02/2025 2:00 PM EDT Office Visit [facility] Primary Care - [address] [phone] Mary Anne Mccormack, INSURANCE VERIFY REP [address] [place] [address] 05/20/2025 3:30 PM EDT Office Visit [facility] Orthopedics - [address] [phone] Jazmin Bell PA-C [address] [place] [address] documented as of this encounter Visit Diagnoses Not on filedocumented in this encounter Care Teams Line Haul Owner Operator Relationship Specialty Start Date End Date Lester Shaffer MD PCP - General Family Medicine 08/02/22 12/27/24 Mary Anne Mccormack, NICCI [address] [place] [address] PCP - General Family Medicine 12/29/24 Jazmin Bell PA-C [address] [place] [address] Physician Medical Advisor 04/23/24 12/27/24 documented as of this encounter
--- OUTSIDE RECORDS SUMMARY | 2025-03-29 12:42 | XMS_ITS | Encounter Summary ---
Author Organization [employer] ([place], [place], [place], [place]) Address [address] [place] [address] Care Team Providers Care Offset Label Rewinder Name Role Phone Mary Anne Mccormack APRN Primary Care Provider + Reason for Visit * Reason Onset Date Comments PATIENT REFUSED [employer]NIC[employer] 02/17/2025 Encounter Details Date Type Department Care Team (Late st Contact Info) Description 02/17/2025 Telephone [facility] Primary Care - [facility] [address] [place] [address] Aleja Enamorado APRN [address] [place] [address] PATIENT REFUSED [employer] Social History Tobacco Use Types Packs/Day Years Used Date Smoking Tobacco: Former Cigarettes 2 1 981 - 2005 Smokeless Tobacco: Never Alcohol Use Standard Drinks/Week Comments Not Currently 0 (1 standard drink = 0.6 oz pur e alcohol) 6 monthsago [facility] - Mental Health Answer Date [...] Date Imer rded Speak language other than Australian at home Not on file 10/02/2023 Want [...] Miscellaneous Notes * Telephone Encounter - Denny Nickolas - 02/17/2025 11:20 AM EDT Called and spoke with patient. Patient advised that he is still having back and neck pain. Patient stated that he is talking Tylenol and Ibuprofen plus using heat and Ice. Advised patient to keep doing those things and advised that he has an appointment with Aleja tomorrow and can discuss treatment with her. Patient voiced understanding. * Telephone Encounter - Nieves Sanchez - 02/17/2025 11:07 AM EDT FROM: Anna Wright TO: [facility] 7 CLINICAL [employer] SCOUT [[id number]] SUBJECT: Patient Triage Indication/Refusal PROVIDER: Aleja Enamorado APRN [[id number]] DEPARTMENT: [facility] [[id number]] ENCOUNTER REASON FOR CALL: PATIENT REFUSED [employer] ENCOUNTER TYPE: Telephone LIST SYMPTOMS WITH SIDE AND SITE (EX: SWELLING IN THE RIGHT KNEE): Had back pain, neck pain is new
DURATION YOU HAVE BEEN EXPERIENCING THE SYMPTOM: 3-4 day for neck, few months back
IS THE SYMPTOM RELIEVED BY ANYTHING (E.G., NOTHING, REST, MEDICATION)? No
MEDICATIONS TRIED? Tylenol/Ibuprofen, steroid and muscle relaxers did help briefly
SYMPTOM PREVIOUSLY DISCUSSED WITH PROVIDER? Yes
SELECT THE APPROPRIATE SITUATION: Patient refused [facility] golf ball trimmer service
LAST VISIT: 2024-12-29
NEXT VISIT: 2025-02-18
MESSAGE PRIORITY: High CALLER'S NAME: Christiano Nolan RELATION TO PATIENT: Self [1] PREFERRED LANGUAGE: Australian BEST CALL BACK PHONE NUMBER: Mobile Phone: ([phone]) WHAT IS THE BEST WAY FOR THE OFFICE TO CONTACT YOU?: OK to leave message on voicemail SCRIPT USED: Adult Back/Neck Pain
SCRIPTING QUESTIONS/ANSWERS FROM THE WORKFLOW: (Has the patient seen one of our primary care clinicians in the last 3 years?): Yes
Are you/they experiencing a new onset of numbness or weakness: No
Are you/they experiencing a stiff neck/back with a fever: No
Are you/they experiencing severe and/or a new onset of back/neck pain: Yes
Patient Refuses [facility] golf ball trimmer: Send Message to Clinic documented in this encounter Plan of Treatment Upcoming Encounters Date Type Department Care Team (Late st Contact Info) Description 04/02/2025 2:00 PM EDT Office Visit [facility] Primary Care - [address] [phone] Mary Anne Mccormack, ATG ARCHITECT [address] [place] [address] 05/20/2025 3:30 PM EDT Office Visit [facility] Orthopedics - [address] [phone] Jazmin Bell PA-C [address] [place] [address] documented as of this encounter Visit Diagnoses Not on filedocumented in this encounter Care Teams Offset Label Rewinder Relationship Specialty Start Date End Date Mary Anne Mccormack, ATG ARCHITECT [address] [place] [address] PCP - General Family Medicine 12/29/24 documented as of this encounter
--- OUTSIDE RECORDS SUMMARY | 2025-03-29 12:42 | XMS_ITS | Encounter Summary ---
Author Organization [employer] ([place], [place], [place], [place]) Address [address] [place] [address] Care Team Providers Care Photographers' Model Name Role Phone Lester Shaffer MD Primary Care Provider [phone] Jazmin Bell PA-C Unavailable [phone] Mary Anne Mccormack APRN Primary Care Provider + Reason for Visit * Reason Onset Date Comments Medication Refill 12/15/2024 Encounter Details Date Type Department Care Team (Late st Contact Info) Description 12/15/2024 Telephone [facility] Orthopedics - [address] [address] Jazmin Bell PA-C [address] [place] [address] Medication Refill Social History Tobacco Use Types Packs/Day Years [...] Date Imer rded Speak language other than Uruguayan at home Not on file 10/02/2023 Want [...] encounter Miscellaneous Notes * Telephone Encounter - Luciana Modi CMA - 12/15/2024 10:39 PM EDT Medication(s) Requested: CELEBREX # of Previous Refills: 10 Pharmacy: [facility] Next Appt: 02-17-25 documented in this encounter Plan of Treatment Upcoming Encounters Date Type Department Care Team (Late st Contact Info) Description 04/02/2025 2:00 PM EDT Office Visit [facility] Primary Care - [facility] [address] [place] [address] Mary Anne Mccormack DIRECTOR PUBLIC POLICY [address] [place] [address] 05/20/2025 3:30 PM EDT Office Visit [facility] Orthopedics - [address] [phone] Jazmin Bell PA-C [address] [place] [address] documented as of this encounter Visit Diagnoses Not on filedocumented in this encounter Care Teams Photographers' Model Relationship Specialty Start Date End Date Lester Shaffer MD PCP - General Family Medicine 08/02/22 12/27/24 Mary Anne Mccormack DIRECTOR PUBLIC POLICY [address] [place] [address] PCP - General Family Medicine 12/29/24 Jazmin Bell PA-C [address] [place] [address] Physician Furniture Repairer 04/23/24 12/27/24 documented as of this encounter
--- OUTSIDE RECORDS SUMMARY | 2025-03-29 12:42 | XMS_ITS | Encounter Summary ---
Author Organization [employer] ([place], [place]) Address [address] [place] [address] Care Team Providers Care Delicatessen Clerk Name Role Phone Lester Shaffer MD Primary Care Provider [phone] Jazmin Bell PA-C Unavailable [phone] Mary Anne Mccormack APRN Primary Care Provider + Reason for Visit * Reason Comments Medication Refill Encounter Details Date Type Department Care Team (Late st Contact Info) Description 04/22/2023 Refill [facility] Orthopedics - [address] [address] Buddy Daniel DPM [address] [place] [address] Social History Tobacco Use Types Packs/Day Years Used Date Smoking Tobacco: Former Cigarettes 2 25 1 981 - 2005 Smokeless Tobacco: Never Alcohol Use Standard Drinks/Week Comments Not Currently 0 (1 standard drink = 0.6 oz pur e alcohol) 6 monthsago Sex and Gender Information Value Date Recorded Sex Assigned at Not on file Legal Sex Male 5:30 PM CDT Gender Identity Not on file Sexual Orientation Not on file COVID-19 Exposure Response Date Recorded In the last 10 days, have yo u been in contact with someone who was confirmed or suspected to have Coronavirus/COVID-19? No / Unsure 03/28/2023 3:47 PM EDT documented as of this encounter Plan of Treatment Upcoming Encounters Date Type Department Care Team (Late st Contact Info) Description 04/02/2025 2:00 PM EDT Office Visit [facility] Primary Care - [facility] [address] [place] [address] Mary Anne Mccormack FIRE LIEUTENANT MARINE [address] [place] [address] 05/20/2025 3:30 PM EDT Office Visit [facility] Orthopedics - [place] [address] [place] [address], [place] [address] Jazmin Bell PA-C [address] [place] [address] documented as of this encounter Visit Diagnoses Not on filedocumented in this encounter Care Teams Delicatessen Clerk Relationship Specialty Start Date End Date Letser Shaffer MD PCP - General Family Medicine 08/02/22 12/27/24 Mary Anne Mccormack FIRE LIEUTENANT MARINE [address] [place] [address] PCP - General Family Medicine 12/29/24 Jazmin Bell PA-C [address] [place] [address] Physician Securities Vault Supervisor 04/23/24 12/27/24 documented as of this encounter
--- OUTSIDE RECORDS SUMMARY | 2025-03-29 12:42 | XMS_ITS | Encounter Summary ---
Author Organization [employer] ([place], [place], [place], [place]) Address [address] [place] [address] Care Team Providers Care Charge Entry Name Role Phone Lester Shaffer MD Primary Care Provider [phone] Jazmin Bell PA-C Unavailable [phone] Mary Anne Mccormack APRN Primary Care Provider + Encounter Details Date Type Department Care Team (Late st Contact Info) Description 02/02/2022 Transcribed Document [facility] [place] [facility] [place] [address] ProviderDestiny MD [address] [place] [address] Social History Tobacco Use Types [...] Date Imer rded Speak language other than Portuguese at home Not on file 10/02/2023 Want [...] * Cerner Conversion Note - Historical Provider, MD - 02/02/2022 8:00 AM CDT Patient: CHRISTIANO NOLAN Age: 56 years Sex: Male : 1965 Associated Diagnoses: None Author: PASCALE LUCIA MD-CAR Basic Information PCP: Lester Shaffer Mandrel Cleaner: Dr. Melton Chief Complaint Exertional Dyspnea, Abnormal Stress History of Present Illness 56 year old male with a history of HTN, HLD, GERD, Tobacco Abuse, and Morbid Obesity. The patient reports exertional dyspnea that is worse with inclines. Lexiscan on 01/09/[address] Melton has referred him for LHC. Patient presents today for C with Dr. Lucia. Review of Systems Constitutional: Negative except as documented in history of present illness. Eye: Negative except as documented in history of present illness. Ear/Nose/Mouth/Throat: Negative except as documented in history of present illness. Respiratory: Negative except as documented in history of present illness. Cardiovascular: Negative except as documented in history of present illness. Gastrointestinal: Negative except as documented in history of present illness. Genitourinary: Negative except as documented in history of present illness. Hematology/Lymphatics: Negative except as documented in history of present illness. Endocrine: Negative except as documented in history of present illness. Immunologic: Negative except as documented in history of present illness. Musculoskeletal: Negative except as documented in history of present illness. Integumentary: Negative except as documented in history of present illness. Neurologic: Negative except as documented in history of present illness. Psychiatric: Negative except as documented in history of present illness. Health Status No qualifying data available No qualifying data available Allergies: No active allergies have been recorded., No qualifying data available Current medications: No qualifying data available Problem list: No problem items selected or recorded., No qualifying data available Histories No education data available. Social & Psychosocial Habits No Data Available Past Medical History: Active Dyspnea on exertion (052143684) GERD - Gastro-esophageal reflux disease (6222681418) HLD - Hyperlipidemia (258913481) HTN - Hypertension (4121358262) Morbid obesity (802817685) Prediabetes (3347572371) Smoker (454967203) Tobacco abuse (240087256) Family History: No family history items have been selected or recorded., Non-Contributory Procedure history: No active procedure history items have been selected or recorded. Social History Social & Psychosocial Habits No Data Available . Physical Examination VS/Measurements No qualifying data available General: Alert and oriented, No acute distress. Eye: Pupils are equal, round and reactive to light, Normal conjunctiva. HENT: Normocephalic. Neck: Supple, No jugular venous distention. Respiratory: Lungs are clear to auscultation, Respirations are non-labored, Symmetrical chest wall expansion. Cardiovascular: Normal rate, Regular rhythm, No murmur, Good pulses equal in all extremities. Gastrointestinal: Soft, Non-distended, Normal bowel sounds. Musculoskeletal: Normal range of motion, Normal strength. Integumentary: Warm, Dry, [place]. Neurologic: Alert, Oriented. Psychiatric: Cooperative, Appropriate mood & affect. Review / Management No qualifying data available Cardiac Markers (Current Encounter/Past 24 Hours) No Cardiac Marker Results Found (Past 24 Hours) Blood Gases (Current Encounter/Past 24 Hours) No Blood Gas Results Found (Past 24 Hours) No Radiology Results Found Results review: No qualifying data available. Impression and Plan IMPRESSION: * Anginal Equivalent Exertional Dyspnea Lexiscan 01/09/22 suggest anterior ischemia, EF > 50% *Morbid obesity (BMI 49) w/ 70 lb wt gain over past 2 yrs (per pt) * HTN-Inadequate control * HLD * Prediabetes HgbA1C 6.2- 01/29/22 * Tobacco Abuse 3ppd x20 years PLAN; [facility] with possible percutaneous coronary intervention. Risk and benefits discussed. Patient wishes to proceed. Minimize NSAIDS. Smoking cessation. Post cath addendum: Low cardiac risk for podiatry surgery. Pt to follow-up with primary cardiology team regarding echo result. Increase Amlodipine to 10 mg daily, start Valsartan 160 mg qhs, start ASA 81 mg daily. BP log. Emphasize lifestyle wt loss, Na restrict, CLAUDIA follow-up, smoking cessation. documented in this encounter Plan of Treatment Upcoming Encounters Date Type Department Care Team (Late st Contact Info) Description 04/02/2025 2:00 PM EDT Office Visit [facility] Primary Care - [facility] [address] [place] [address] Mary Anne Mccormack WIRELESS CONSTRUCTION MANAGER [address] [place] [address] 05/20/2025 3:30 PM EDT Office Visit [facility] Orthopedics - [address] [address] Jazmin Bell PA-C [address] [place] [address] documented as of this encounter Visit Diagnoses Not on filedocumented in this encounter Care Teams Charge Entry Relationship Specialty Start Date End Date Lester Shaffer MD PCP - General Family Medicine 08/02/22 12/27/24 Mary Anne Mccormack APRN [address] [place] [address] PCP - General Family Medicine 12/29/24 Jazmin Bell PA-C [address] [place] [address] Physician Dinker 04/23/24 12/27/24 documented as of this encounter
--- OUTSIDE RECORDS SUMMARY | 2025-03-29 12:42 | XMS_ITS | Encounter Summary ---
Author Organization [employer] ([place], [place], [place], [place]) Address [address] [place] [address] Care Team Providers Care Asset Protection Detective Name Role Phone Lester Shaffer MD Primary Care Provider [phone] Jazmin Bell PA-C Unavailable [phone] Mary Anne Mccormack APRN Primary Care Provider + Encounter Details Date Type Department Care Team (Late Contact Info) Description 01/03/2023 Outside Orders [facility] Admitting [address] [place] [address] Buddy Daniel DPM [address] [place], [place] [id number] Social History Tobacco Use Types Packs/Day Years [...] suspected to have Coronavirus/COVID-19? No / Unsure 01/03/2023 11:04 AM EDT documented as of this encounter Plan of Treatment Upcoming Encounters Date Type Department Care Team (Late st Contact Info) Description 04/02/2025 2:00 PM EDT Office Visit [facility] Primary Care - [facility] [address] [place] [address] Mary Anne Mccormack RECLAMATION ENGINEER [address] [place] [address] 05/20/2025 3:30 PM EDT Office Visit [facility] Orthopedics - [address] [address] Jazmin Bell PA-C [address] [place] [address] documented as of this encounter Visit Diagnoses Not on filedocumented in this encounter Care Teams Asset Protection Detective Relationship Specialty Start Date End Date Lester Shaffer MD PCP - General Family Medicine 08/02/22 12/27/24 Mary Anne Mccormack APRN [address] [place] [address] PCP - General Family Medicine 12/29/24 Jazmin Bell PA-C [address] [place] [address] Physician Office Clerk Routine 04/23/24 12/27/24 documented as of this encounter
--- OUTSIDE RECORDS SUMMARY | 2025-03-29 12:42 | XMS_ITS | Clinical Summary ---
Author Organization [employer] ([place], [place], [place], [place]) Address [address] [place] [address] Care Team Providers Care Supervisor Kosher Dietary Service Name Role Phone Mary Anne Mccormack APRN Primary Care Provider + Allergies No known active allergies Medications loratadine [...] carpometacarpal (CMC) joint of left wrist 08/02/2022 Encounters Date Type Department Care Team Description 02/26/2025 2:00 PM EDT Office Visit [facility] Primary Care - [facility] [address] [place] [address] Mary Anne Mccormack APRN Polyarthropathy (Primary Dx) 02/26/2025 Travel 02/18/2025 4:30 PM EDT Lab Patient Walk-In [facility] [address] [place] [address] Vitamin D deficiency (Primary Dx) 02/18/2025 3:54 PM EDT - 02/18/2025 11:59 PM EDT Hospital Encounter [facility] [address] [place] [address] Shoulder pain, left Discharge Disposition: Home or Self Care 02/18/2025 3:53 PM EDT Hospital Encounter [facility] [address] [facility] [address] Shoulder pain, left Discharge Disposition: Home or Self Care 02/18/2025 3:45 PM EDT - 02/18/2025 3:52 PM EDT Hospital Encounter [facility] [address] [facility] [address] Neck pain Discharge Disposition: Home or Self Care 02/18/2025 3:15 PM EDT Office Visit [address] [address] Aleja Enamorado APRN Muscle strain (Primary Dx); Shoulder pain, left; Neck pain; Radiculopathy; Polyarthropathy 02/18/2025 Travel 02/17/2025 3:45 PM EDT Office Visit [facility] [address] [address] Jazmin Bell PA-C Localized osteoarthritis of right knee (Primary Dx); Primary osteoarthritis of first carpometacarpal joint of left hand 02/17/[address] [address] Aleja Enamorado APRN PATIENT REFUSED [employer] 01/04/[address] [address] Lester Shaffer MD Anxiety 12/29/2024 1:00 PM EDT Office Visit [address] [address] Mary Anne Mccormack APRN Muscle strain (Primary Dx); Acute otitis media, unspecified otitis media type; Primary hypertension; ED (erectile dysfunction); Mixed hyperlipidemia; Elevated glucose; Encounter for prostate cancer screening 12/29/[address] [address] Mary Anne Mccormack, NICCI Medication Problem from Last 3 Months Family History Medical History Relation Name Comments Alcohol abuse Brother Arthritis Brother Bipolar disorder Brother Dementia Brother Diabetes Brother Hyperlipidemia Brother Hypertension Brother Arthritis Father Cancer Father Heart disease Father Hyperlipidemia Father Hypertension Father Lung cancer Father Heart attack Maternal Grandfather Lung cancer Maternal Grandmother Arthritis Mother Diabetes Mother Heart disease Mother Hyperlipidemia Mother Hypertension Mother Osteoporosis Mother Thyroid disease Mother Anemia Sister Arthritis Sister Asthma Sister Bipolar disorder Sister Dementia Sister Diabetes Sister Hyperlipidemia Sister Hypertension Sister Seizures Sister Relation Name Status Comments Brother Father Maternal Grandfather Maternal Grandmother Mother Sister Social History Tobacco Use Types Packs/Day Years Used Date Smoking Tobacco: Former Cigarettes 2 25 1 981 - 2005 Smokeless Tobacco: Never Tobacco Cessation:Counseling Given: Not Answered Alcohol Use Standard Drinks/Week Comments Not Currently 0 (1 standard drink = 0.6 oz pur e alcohol) 6 monthsago [facility] - Mental Health Answer Date Recorde d [...] Date Imer rded Speak language other than Maltese at home Not on file 10/02/2023 Want [...] Description 04/02/2025 2:00 PM EDT Office Visit [facility] Primary Care - [facility] [address] [place] [address] Mary Anne Mccormack, DOUGH MACHINE OPERATOR [address] [place] [address] 05/20/2025 3:30 PM EDT Office Visit [facility] Orthopedics - [address] [phone] Jazmin Bell PA-C [address] [place] [address] Health Maintenance Due Date Last Done Comments CT Colonography 1963 Colonoscopy 1963 Colorectal Cancer Screening 1963 FOBT/FIT 1963 Fit-DNA (Cologuard) 1963 Sigmoidoscopy 1963 HIV Screening 1978 Hepatitis C Screening 1981 DTAP/TDAP/TD VACCINES (1 - Tdap) 1982 Pneumococcal 50+ years (1 of 1 - PCV) 2013 Shingles Vaccine (Zoster) (1 of 2) 2013 Respiratory Syncytial Virus (RSV) Adult or (1 - Risk 60-74 years 1-dose series) 2023 Statin - ASCVD Risk Prevention 12/14/2023 12/13/2022 COVID-19 VACCINE (1 - 2023-2 5 season) 2024 Influenza Vaccine (#1) 2025 06/01/2022, 2020 Tobacco Cessation Counseling and Screening (12+) 02/17/2026 02/17/2025 Lipid Panel 10/12/2027 10/12/2024, 05/24, 02/10/2024, Additional history exists Medical Devices Implanted Type Area Senior Cobol Developer Device Identifier Shelf Expiration Date Model / Serial / Lot Kwire Sngl Smooth [id number] - [id number] Implanted:Qty: 1 on 12/21/2022 by Buddy Daniel DPM at [facility] IMPLANTS Right: Foot PARAGON 28 [id number] 15 / / Kwire Smooth 1.6x150 Mm [id number] - [id number] Implanted:Qty: 1 on 12/21/2022 by Buddy Daniel DPM at [facility] IMPLANTS Right: Foot PARAGON 28 [id number] 15 / / Plt Mtp 5 Gft [id number] - [id number] Implanted:Qty: 1 on 12/21/2022 by Buddy Daniel DPM at [facility] IMPLANTS Right: Foot PARAGON 28 [id number] / / Wire Baldwin Smooth 1.4 Mm [id number] - [id number] Implanted:Qty: 2 on 12/21/2022 by Buddy Daniel DPM at [facility] IMPLANTS Right: Foot PARAGON 28 [id number] 06 / / Scr Ash R3con 3.5x14mm [id number] - [id number] Implanted:Qty: 3 on 12/21/2022 by Buddy Daniel DPM at [facility] IMPLANTS Right: Foot PARAGON 28 [id number] 14 / / Scr Ash R3con 3.5x16mm [id number] - [id number] Implanted:Qty: 2 on 12/21/2022 by Buddy Daniel DPM at [facility] IMPLANTS Right: Foot PARAGON 28 [id number] 16 / / Scr Ash R3con 3.5x18mm [id number] - [id number] Implanted:Qty: 1 on 12/21/2022 by Buddy Daniel DPM at [facility] IMPLANTS Right: Foot PARAGON 28 [id number] 18 / / Scr Jhoan Nonlk R3con 3.5x14 [id number] - [id number] Implanted:Qty: 1 on 12/21/2022 by Buddy Daniel DPM at [facility] IMPLANTS Right: Foot PARAGON 28 [id number] 14 / / Disc Mtp 5x21mm [id number] - [id number] Implanted:Qty: 1 on 12/21/2022 by Buddy Daniel DPM at [facility] IMPLANTS Right: Foot PARAGON 28 [id number] / / 21mm Male Reamer Implanted:Qty: 1 on 12/21/2022 by Buddy Daniel DPM at [facility] Right: Foot PARAGON 28 [id number] 01 / / 21mm Female Reamer Implanted:Qty: 1 on 12/21/2022 by Buddy Daniel DPM at [facility] Right: Foot PARAGON 28 [id number] 02 / / 2.4 Drill Implanted:Qty: 1 on 12/21/2022 by Buddy Daniel DPM at [facility] Right: Foot PARAGON 28 [id number] 14 / / Procedures Procedure Name Priority [...] 10.8 K/ L 02/18/2025 4:32 PM EDT [facility] RBC 4.65 3.80 - 5.20 M/ L 02/18/2025 4:32 PM EDT [facility] Hemoglobin 14.1 12.8 - 17.4 GM/DL 02/18/2025 4:32 PM EDT [facility] Hematocrit 40.1 39.0 - 51.0 % 02/18/2025 4:32 PM EDT [facility] MCV 86 81 - 101 fL 02/18/2025 4:32 PM EDT [facility] MCH 30.3 27.0 - 34.0 pg 02/18/2025 4:32 PM EDT [facility] MCHC 35.2 32.0 - 36.0 GM/DL 02/18/2025 4:32 PM EDT [facility] RDW 13.1 11.5 - 14.5 % 02/18/2025 4:32 PM EDT [facility] Platelets 317 150 - 400 K/CU MM 02/18/2025 4:32 PM EDT [facility] MPV 10.0 9.4 - 12.4 fL 02/18/2025 4:32 PM EDT [facility] Nucleated Red Blood Cell 0.0 0 - 0.2 % 02/18/2025 4:32 PM EDT [facility] % Neutros 87(H) 37 - 80 % 02/18/2025 4:32 PM EDT [facility] % Lymphs 8(L) 10 - 50 % 02/18/2025 4:32 PM EDT [facility] % Monos 5 5 - 13 % 02/18/2025 4:32 PM EDT [facility] % Eos 0 0 - 7 % 02/18/2025 4:32 PM EDT [facility] % Baso 0 0 - 3 % 02/18/2025 4:32 PM EDT [facility] NRBC Absolute <0.01 0 - 0.012 K/ul 02/18/2025 4:32 PM EDT [facility] # Neutros 9.99(H) 2.00 - 6.90 K/ L 02/18/2025 4:32 PM EDT [facility] # Lymphs 0.90 0.60 - 3.40 K/ L 02/18/2025 4:32 PM EDT [facility] # Monos 0.56 0.00 - 0.90 K/ L 02/18/2025 4:32 PM EDT [facility] # Eos 0.00 0.00 - 0.70 K/ L 02/18/2025 4:32 PM EDT [facility] # Baso 0.01 0.00 - 0.20 K/ L 02/18/2025 4:32 PM EDT [facility] Immature Granulocytes-Re lative 0.50 % 02/18/2025 4:32 PM EDT [facility] # IG 0.06(H) 0.00 - 0.00 K/uL 02/18/2025 4:32 PM EDT [facility] Blood Venipuncture / Unknown 02/18/2025 4:22 PM EDT 02/18/2025 4:22 PM EDT Narrative [facility] - 02/18/2025 4:32 PM EDT [...] noted Atypical Lymph flag noted Aleja Enamorado DOUGH MACHINE OPERATOR LAB BLOOD ORDERABLES Final Result [facility] [address] [place] [address], [facility] [phone] * Rheumatoid Factor(SENDOUT) (02/18/2025 4:22 PM EDT) Pathologist [facility] Rheumatoid Factor <10 0 - 14 IU/mL 02/21/2025 11:53 PM EDT [facility] Comment: Performed By: [facility] [address] [place] [id number] Compliance Manager: Tevin Marshall MD, PhD CLIA Number: [id number] Blood Venipuncture / Unknown 02/18/2025 4:22 PM EDT 02/18/2025 4:22 PM EDT Aleja Enamorado [facility] LAB BLOOD ORDERABLES Final Result Performing Organization Address City/[facility]/ZIP Co de Phone Number [facility] [address] [place] [address], [facility] [phone] * CHER Reflexive Profile(SENDOUT) (02/18/2025 4:22 PM EDT) [facility] Anti-Nuclear Ab (CHER), IgG by [facility] None Detected None Detected 02/21/2025 7:02 AM EDT [facility] Comment: No Anti-Nuclear Antibodies (CHER) detected by [facility]. The Extractable Nuclear Antigen Antibodies (FINANCIAL CONSULTANT, Vaca, SSA 52, SSA 60, Scleroderma, Rhiannon-1 and SSB) and Double Stranded DNA (dsDNA) Antibody, IgG will not be performed. If suspicion of connective tissue disease is strong, and CHER is negative by [facility], consider testing for CHER by IFA ([id number]). INTERPRETIVE INFORMATION: Anti-Nuclear Antibodies (CHER), IgG by [facility] Antinuclear Antibodies (CHER), IgG by [facility]: CHER specimens are screened using enzyme-linked immunosorbent assay (MERCEDES) methodology. All [facility] results reported as Detected are further tested by indirect fluorescent assay (IFA) using HEp-2 substrate with an IgG-specific conjugate. The CHER [facility]CEDES screen is designed to detect antibodies against dsDNA, histones, SS-A (Ro), SS-B (La), Vaca, Vaca/FINANCIAL CONSULTANT, Scl-70, Rhiannon-1, centromeric proteins, other antigens extracted from the HEp-2 cell nucleus. CHER MERCEDES assays have been reported to have lower sensitivities than CHER IFA for systemic autoimmune rheumatic diseases (SARD). Negative results do not necessarily rule out SARD. Performed By: [facility] [address] [place] [address] Compliance Manager: Tevin Marshall MD, PhD CLIA Number: [id number] Blood Venipuncture / Unknown 02/18/2025 4:22 PM EDT 02/18/2025 4:22 PM EDT Aleja Enamorado DOUGH MACHINE OPERATOR LAB BLOOD ORDERABLES Final Result Performing Organization Address City/[facility]/ZIP Co de Phone Number [facility] [address] [place] [address], [facility] [phone] * Sedimentation rate (02/18/2025 4:22 PM EDT) Sed Rate 8 0 - 20 mm/HR 02/18/2025 4:52 PM EDT [facility] Blood Venipuncture / Unknown 02/18/2025 4:22 PM EDT 02/18/2025 4:22 PM EDT [facility] LAB BLOOD ORDERABLES Final Result [facility] [address] [place] [address], [facility] [phone] * (ABNORMAL) Comprehensive metabolic panel (02/18/2025 4:22 PM EDT) Sodium 136 136 - 145 meq/L 02/18/2025 4:46 PM EDT [facility] Potassium 4.2 3.5 - 5.1 meq/L 02/18/2025 4:46 PM EDT [facility] Chloride 102 98 - 107 meq/L 02/18/2025 4:46 PM EDT [facility] CO2 25 21 - 32 meq/L 02/18/2025 4:46 PM EDT [facility] Calcium 9.0 8.5 - 10.1 mg/dL 02/18/2025 4:46 PM EDT [facility] Glucose 151(H) 70 - 99 mg/dL 02/18/2025 4:46 PM EDT [facility] BUN 28(H) 7 - 18 mg/dL 02/18/2025 4:46 PM EDT [facility] Creatinine 1.34(H) 0.70 - 1.20 mg/dL 02/18/2025 4:46 PM EDT [facility] BUN/Creatinine 21 02/18/2025 4:46 PM EDT [facility] Albumin 3.9 3.4 - 5.0 g/dL 02/18/2025 4:46 PM EDT [facility] Alkaline Phosphatase 49 46 - 116 U/L 02/18/2025 4:46 PM EDT [facility] ALT 30 12 - 78 U/L 02/18/2025 4:46 PM EDT [facility] AST 17 15 - 37 U/L 02/18/2025 4:46 PM EDT [facility] Total Bilirubin 0.4 0.2 - 1.0 mg/dL 02/18/2025 4:46 PM EDT [facility] Protein, Total 7.9 6.4 - 8.2 gm/dL 02/18/2025 4:46 PM EDT [facility] Anion Gap 13 11 - 22 02/18/2025 4:46 PM EDT [facility] A/G Ratio 1.0 02/18/2025 4:46 PM EDT [facility] Globulin 4.0 g/dL 02/18/2025 4:46 PM EDT [facility] Osmolality Calc 280.3 mOsm/kg 4:46 PM EDT [facility] eGFR (mL/min/1.73m2) 60 >=60 mL/min/1.7 3m2 02/18/2025 4:46 PM EDT [facility] Comment:ESTIMATED GFR IS NOT ACCURATE CREATININE CLEARANCE IN PREDICTING GLOMERULAR FILTRATION RATE. ESTIMATED GFR IS NOT APPLICABLE FOR DIALYSIS PATIENTS. Blood Venipuncture / Unknown 02/18/2025 4:22 PM EDT 02/18/2025 4:22 PM EDT us Aleja Enamorado DOUGH MACHINE OPERATOR LAB BLOOD ORDERABLES Final Result [facility] [address] [phone] * XR shoulder complete 2 views min [...] by Jean Marie Bellamy DO Aleja Enamorado DOUGH MACHINE OPERATOR [facility] [place] [place] DIAGNOSTIC IMAGING ORD ERABLES Final Result * [...] are symmetric. IMPRESSION: Negative. Aleja Enamorado APRN [facility] [place] [place] DIAGNOSTIC IMAGING ORD ERABLES Final Result * [...] Jean Marie Bellamy DO Aleja Enamorado APRN IM DIAGNOSTIC IMAGING ORD ERABLES Final Result * (ABNORMAL) Lipid panel (10/12/2024 9:23 AM EST) [facility] Cholesterol, Total 152 100 - 199 mg/dL [facility] Triglycerides 251(H) 0 - 149 mg/dL [facility] HDL Cholesterol 33(L) >39 mg/dL [facility] VLDL Cholesterol [place] 41(H) 5 - 40 mg/dL [facility] LDL Calculated 78 0 - 99 mg/dL [facility] Blood 10/12/2024 9:23 AM EST 10/12/2024 Narrative [facility] - 10/13/2024 5:06 AM EST Performed at: 01 - [address] [id number] Admissions Specialist: Randy Ulrich PhD, Phone: [phone] Lester Shaffer MD LAB BLOOD ORDERABLES Final Result [facility] from Last 3 Months or Most Recently Relevant to Health Maintenance [facility] Member Subscriber Plan / Payer (Ef fective 2024-Present) Name:Christiano Nolan Relation to Subscriber:Self Name:Christiano Nolan Payer ID:[id number] Group ID:[id number] Type:Not on file Address: [address] [facility] AD[facility] Care Teams Supervisor Kosher Dietary Service Relationship Specialty Start Date End Date Mary Anne Mccormack, DOUGH MACHINE OPERATOR [address] [place] [address] PCP - General Family Medicine 12/29/24
--- OUTSIDE RECORDS SUMMARY | 2025-03-29 12:42 | XMS_ITS | Encounter Summary ---
Author Organization [employer] ([place], [place], [place], [place]) Address [address] [place] [address] Care Team Providers Care Cell Tuber Machine Name Role Phone Lester Shaffer MD Primary Care Provider [phone] Jazmin Bell PA-C Unavailable [phone] Mary Anne Mccormack APRN Primary Care Provider + Reason for Visit * Reason Comments Medication Refill Encounter Details Date Type Department Care Team (Late st Contact Info) Description 12/22/2023 Refill [facility] Orthopedics - [address] [address] Buddy Daniel DPM [address] [place], [place] [id number] Social History Tobacco Use Types Packs/Day Years [...] Date Imer rded Speak language other than Gabonese at home Not on file 10/02/2023 Want [...] Description 04/02/2025 2:00 PM EDT Office Visit [facility] Primary Care - [facility] [address] [place] [address] Mary Anne Mccormack, GROCERY CHECKER [address] [place] [address] 05/20/2025 3:30 PM EDT Office Visit [facility] Orthopedics - [address] [address] Jazmin Bell PA-C [address] [place] [address] documented as of this encounter Visit Diagnoses Not on filedocumented in this encounter Care Teams Cell Tuber Machine Relationship Specialty Start Date End Date Lester Shaffer MD PCP - General Family Medicine 08/02/22 12/27/24 Mary Anne Mccormack GROCERY CHECKER [address] [place] [address] PCP - General Family Medicine 12/29/24 Jazmin Bell PA-C [address] [place] [address] Physician Hand Gluer And Slicer 04/23/24 12/27/24 documented as of this encounter
--- OUTSIDE RECORDS SUMMARY | 2025-03-29 12:42 | XMS_ITS | Encounter Summary ---
Author Organization [employer] ([place], [place] Address [address] [place] [address] Care Team Providers Care Port Drier Name Role Phone Lester Shaffer MD Primary Care Provider [phone] Jazmin Bell PA-C Unavailable [phone] Mary Anne Mccormack APRN Primary Care Provider + Encounter Details Date Type Department Care Team (Late st Contact Info) Description 02/02/2022 Transcribed Document [facility] Family Medicine [facility] [place] [address] ProviderDestiny MD [address] [place] [address] Social History Tobacco Use Types Packs/Day Years Used Date Smoking Tobacco: Never Assessed [facility] - Mental Health Answer Date [...] Date Imer rded Speak language other than Norwegian at home Not on file 10/02/2023 Want [...] Conversion Note - Historical Provider, - 02/02/2022 12:46 PM CDT Nursing Discharge Summary Entered On: 02/02/2022 12:47 EDT Performed On: 02/02/2022 12:46 EDT by Jazmin Wren, spooling machine operator Documentation Discharge Date/Time : 02/02/2022 13:04 EDT Transporter Signature : Jazmin Wren, RN Jazmin Wren, RN - 02/02/2022 13:05 EDT Patient Disposition, General : Discharge Discharge To : Home with ambulatory/outpatient follow-up Mode Of Departure, General Discharge : Ambulatory, Private vehicle Accompanied By, Discharge : Spouse IV Discontinued : Yes Personal Belongings With Patient : Yes Pt's Own Supply of Medications Returned : No patient supply of medications to return Prescriptions Given to Patient : No Medications Given to Patient : No Discharge Instructions Reviewed With, Opportunity For Questions Given : Patient, Spouse Patient Education Completed : Yes Teaching Method : Explanation, Printed materials Teaching Evaluation : Returns demonstration, Verbalizes understanding Jazmin Wren, RN - 02/02/2022 12:46 EDT Electronically signed by [facility] Conversion Contract Associate Manager Cerner at 01/08/2023 4:22 PM CDT documented in this encounter Plan of Treatment Upcoming Encounters Date Type Department Care Team (Late st Contact Info) Description 04/02/2025 2:00 PM EDT Office Visit [facility] Primary Care - [facility] [address] [place] [phone] Mary Anne Mccormack, JAVA GROOVY DEVELOPER [address] [place] [address] 05/20/2025 3:30 PM EDT Office Visit [facility] Orthopedics - [address] [address] Jazmin Bell PA-C [address] [place] [address] documented as of this encounter Visit Diagnoses Not on filedocumented in this encounter Care Teams Port Drier Relationship Specialty Start Date End Date Lester Shaffer MD PCP - General Family Medicine 08/02/22 12/27/24 Mary Anne Mccormack, JAVA GROOVY DEVELOPER [address] [place] [address] PCP - General Family Medicine 12/29/24 Jazmin Bell PA-C [address] [place] [address] Physician Edge Plugger 04/23/24 12/27/24 documented as of this encounter
--- OUTSIDE RECORDS SUMMARY | 2025-03-29 12:42 | XMS_ITS | Encounter Summary ---
Author Organization [employer] ([place], [place], [place], [place]) Address [address] [place] [address] Care Team Providers Care Aadc Plans Staff Officer Name Role Phone MccormackMary Anne hernandez Jade GRAJEDA Primary Care Provider + Encounter Details Date Type Department Care Team (Latest Contact Info) Description 02/18/2025 Travel Social History Tobacco Use Types Packs/Day Years Used Date Smoking Tobacco: Former Cigarettes 2 - 2005 Smokeless Tobacco: Never Alcohol Use Standard Drinks/Week Comments Not Currently 0 (1 standard drink = 0.6 oz pur e alcohol) 6 monthsago [facility] - Mental Health Answer Date Recorde [...] Date Imer rded Speak language other than Samoan at home Not on file 10/02/2023 Want [...] Description 04/02/2025 2:00 PM EDT Office Visit [facility] Primary Care - [facility] [address] [place] [address] Mary Anne Mccormack, NICCI [address] [place] [address] 05/20/2025 3:30 PM EDT Office Visit [facility] Orthopedics - [address] [address] Jazmin Bell PA-C [address] [place] [address] documented as of this encounter Visit Diagnoses Not on filedocumented in this encounter Care Teams Aadc Plans Staff Officer Relationship Specialty Start Date End Date Mary Anne Mccormack APRN [address] [place] [address] PCP - General Family Medicine 12/29/24 documented as of this encounter
--- OUTSIDE RECORDS SUMMARY | 2025-03-29 12:42 | XMS_ITS | Encounter Summary ---
Author Organization [employer] ([place], [place], [place], [place]) Address [address] [place] [address] Care Team Providers Care Freight Claim Investigator Name Role Phone Lester Shaffer MD Primary Care Provider [phone] Jazmin Bell PA-C Unavailable Mary Anne Mccormack APRN Primary Care Provider + Encounter Details Date Type Department Care Team (Late st Contact Info) Description 02/02/2022 Transcribed Document [facility] [address] ProviderDestiny MD [address] [place] [address] Social History Tobacco Use Types Packs/Day Years Used Date Smoking Tobacco: Never Assessed [facility] - Mental Health Answer Date Recorde [...] Date Imer rded Speak language other than Afghan at home Not on file 10/02/2023 Want [...] Conversion Note - Historical Provider, - 02/02/2022 8:32 AM CDT Pre Procedure Adult Entered On: 02/02/2022 8:37 EDT Performed On: 02/02/2022 8:32 EDT by Jazmin Wren RN Height and Weight, Clinical Dosing Height Source : Stated Height Entry Format : [place] Height, Feet : 5 ft(Converted to: 152 cm, 60 Inch) Height, Inches : 9 Inch(Converted to: 0 ft 9 Inch, 22.86 cm) Clinical Height : 175.26 cm Weight Source : Standing scale Weight Entry Format : [place] Clinical Dosing Weight : 136.36 kg Weight, Pounds : 300 lb Body Surface Area (BSA) : 2.46 m2 Body Mass Index : 44.4 kg/m2 (>HHI) [place] Body Weight : 70 kg Jazmin Wren RN - 02/02/2022 8:32 EDT Health Histories Smoking Status : Former smoker, quit more than 30 days ago Smokeless Tobacco Status : Never Jazmin Wren RN - 02/02/2022 8:32 EDT Social History (As Of: 02/02/2022 08:37:20 EDT) Tobacco: Former smoker, quit more than 30 days ago Smoking Status. Never Smokeless Tobacco Status. None Smokeless Tobacco Use History. Years of Use: 20. Packs/Tins Daily: 3. (Last Updated: 02/02/2022 08:32:57 EDT by Jazmin Wren, RN) Alcohol: Alcohol Use History Yes. Use in Last 12 Months: Yes. Alcohol Use Frequency Socially. (Last Updated: 02/02/2022 08:33:10 EDT by Jazmin Wren, RN) Substance Abuse: Drug Use Hx: No. Use in Last 12 Months: No. (Last Updated: 02/02/2022 08:33:18 EDT by Jazmin Wren RN) Infectious Disease History Does patient have symptoms of COVID-19? : No Tested for COVID19 in the past 14 days : Yes, Patient stated results Negative Does the Patient state known exposure to a COVID-19 positive case in the last 14 days? : No Patient Vaccinated for COVID-19 : Not vaccinated Does Patient want a COVID-19 Vaccine? : No Jazmin Wren RN - 02/02/2022 8:32 EDT Infectious Disease Risk Screening Grid Cough < 2 wks of unknown origin : NO Cough > 2 weeks : NO Blood in Sputum : NO Fever or self-reported Fever : NO Rash of unknown origin : NO Headache : NO Stiff neck : NO Night Sweats : NO Unexplained Weight Loss : NO Diarrhea (3 episode per day) : NO Jazmin Wren RN - 02/02/2022 8:32 EDT Patient Masked? : Yes Physical contact outside [place] in the last 30 days : No Hospitalized in Foreign Country : No Infectious Disease History : Chicken pox/Shingles, Influenza, Measles, Mumps, Rubella INF Disease TB Screening Calc : 0 INF Disease Recent Travel Calc : 0 Jazmin Wren RN - 02/02/2022 8:32 EDT COVID19 PreProcedure Screening Is this an Emergent or Add on Procedure? : No Date PreProcedure COVID-19 test known? : Yes Date of PreProcedure COVID-19 : 01/31/2022 EDT Has patient been isolated since the test : Yes Exposed to COVID19 symptoms since test? : No Jazmin Wren RN - 02/02/2022 8:32 EDT Anesthesia/Transfusion History Family History of Anesthesia Reaction : No prior transfusion(s) Blood Transfusion Acceptable to Patient : Yes Transfusion History : Prior anesthesia without reaction Family History of Anesthesia Reaction : None Intubation History : Unknown Jazmin Wren RN - 02/02/2022 8:32 EDT Functional Assessment Living Situation : Home Patient Lives With : Spouse Persons Assisting Patient at Home : Alone Current Daily Living Assistance : None Sensory Deficits : None Mobility Assistance Prior to Admission : Independent WILDER Hx Falls Immediate/Within 3 Months : No Current Home Treatments : BiPAP Home Equipment : None Jazmin Wren RN - 02/02/2022 8:32 EDT [place] Suicide Severity Rating Scale (C-SSRS) CSSRS Past Month Wish to be : No CSSRS Past Month Suicidal Thoughts : No CSSRS Lifetime Suicide Behavior : No Suicide Severity Rating Score : 0 Suicide Severity Rating : No Additional Care Required at this time Jazmin Wren RN - 02/02/2022 8:32 EDT Psychosocial History Do You Have a History of the Following? : Anxiety Currently in Unsafe Situation : No Jazmin Wren RN - 02/02/2022 8:32 EDT Advance Directive Patient has Advance Directive *Q : No, patient refuses Advance Directive information Jazmin Wren RN - 02/02/2022 8:32 EDT Teaching/Learning Assessment Barriers To Learning : None evident Individuals Taught : Patient, Spouse Readiness to Learn : Cooperative Readiness to Learn : Explanation Jazmin Wren RN - 02/02/2022 8:32 EDT Education Topics, Periop Preadmission Perioperative Education Grid Arrival Time/Place : Verbalizes understanding CAUTI : Verbalizes understanding Central Lines : Verbalizes understanding CHG Preoperative Bathing/Cloths : Verbalizes understanding Falls : Verbalizes understanding Incentive Spirometry : Verbalizes understanding Infection Control : Verbalizes understanding IV's : Verbalizes understanding NPO Status/Directions : Verbalizes understanding Pain Management : Verbalizes understanding Postoperative Care Preparations : Verbalizes understanding Preprocedure Preparations : Verbalizes understanding Preprocedure Tests/Labs : Verbalizes understanding Remove Body Piercings : Verbalizes understanding Responsible Adult : Verbalizes understanding SNE's : Verbalizes understanding Take/Hold Medications Pre-Procedure : Verbalizes understanding Other : Verbalizes understanding Jazmin Wren RN - 02/02/2022 8:32 EDT General Info Preferred Name : Christiano Arrived From : Home Mode of Arrival on Unit : Ambulatory Legal Guardian : Spouse Want Family/Rep/Phys Notified of Admit : No Emergency Contact #1 : Aleja Nolan Emergency Contact #1 Emergency Contact #1 Relationship : Spouse Emergency Contact #2 : . Emergency Contact #2 Phone Number : . Emergency Contact #2 Relationship : . Information Obtained From : Patient Primary Language : Afghan Preferred Communication Mode : Verbal Communication Barrier : None Colon Therapist Needed : No Jazmin Wren RN - 02/02/2022 8:32 EDT Vital Measurements Temperature Source : Temporal artery scanning Temperature Mode : Fahrenheit Temperature, Fahrenheit : 98.2 Deg F Clinical Temperature, C : 36.8 Deg C Peripheral Pulse Rate : 61 bpm Respiratory Rate : 22 Breaths/Min (HI) Systolic Blood Pressure : 145 mmHg (HI) Diastolic Blood Pressure : 83 mmHg Oxygen Saturation : 97 % Oxygen Therapy Mode : Room air Jazmin Wren RN - 02/02/2022 8:32 EDT Sleep Apnea Risk Assmt BiPAP/CPAP Ordered for Home Use : Yes Hx of Obstructive Sleep Apnea Diagnosis : Yes BiPAP/CPAP Used at Home : Yes Age over 50 Years Old : Yes Gender Male : Yes Jazmin Wren RN - 02/02/2022 8:32 EDT Cassius Scale Cassius Sensory Perception : No impairment Cassius Moisture : Rarely moist Cassius Activity : Walks occasionally Cassius Mobility : Slightly limited Cassius Nutrition : Adequate Cassius Friction and Shear : No apparent problem Cassius Score : 20 Jazmin Wren RN - 02/02/2022 8:32 EDT Pain Assessment Pain Assessment : Initial assessment Pain Scale Used : 0-10 Scale Jazmin Wren RN - 02/02/2022 8:32 EDT Fall Risk Scales ABCs Fall Injury Risk Identification : None WILDER Hx Falls Immediate/Within 3 Months : No Wilder Secondary Diagnosis : No WILDER Use of Ambulatory Aid : None WILDER IV Therapy or IV Access : Yes Wilder Gait/Transferring : Normal, bedrest, immobile Wilder Mental Status : Oriented to own ability Wilder Fall Risk Score : 20 WILDER Fall Scale Risk Level : 0-24 Low Risk [place] Fall Interventions : Adequate lighting, Assistive devices within reach, Bed in low position, Call device within reach, Fall prevention handout/education per facility policy, Frequent orientation to call device, Frequent orientation to surroundings, Hourly comfort/safety rounds, Non-slip footwear, Personal items within reach, Reinforced to call for assistance before getting out of bed, Room free of clutter/spills, Upper side-rails up, Wheels locked, Wires/Cords secured Jazmin Wren RN - 02/02/2022 8:32 EDT Valuables and Belongings Valuables and Belongings : Clothing, Personal devices, Personal items, No comfort items, No jewelry, No assistive devices, No respiratory devices, No medications Clothing : Common streetwear Clothing Disposition : Bedside, With patient, Declines to send to security/safe Personal Device Disposition : Bedside, With patient, Declines to send to security/safe Personal Devices : Glasses Personal Items : Cell phone Personal Items Disposition : Bedside, With patient, Declines to send to security/safe Jazmin Wren RN - 02/02/2022 8:32 EDT Pain Scale Intensity : 0 Jazmin Wren RN - 02/02/2022 8:32 EDT Image 4 - Images currently included in the form version of this document have not been included in the text rendition version of the form. Electronically signed by Dustin Stewart Conversion [employer] Equipment Repairer Cerner at 01/08/2023 4:02 PM CDT documented in this encounter Plan of Treatment Upcoming Encounters Date Type Department Care Team (Late st Contact Info) Description 04/02/2025 2:00 PM EDT Office Visit [facility] Primary Care - [facility] [address] [place] [address] Mary Anne Mccormack DIGITAL STRATEGY DIRECTOR [address] [place] [address] 05/20/2025 3:30 PM EDT Office Visit [facility] Orthopedics - [address] [phone] Jazmin Bell PA-C [address] [place] [address] documented as of this encounter Visit Diagnoses Not on filedocumented in this encounter Care Teams Freight Claim Investigator Relationship Specialty Start Date End Date Lester Shaffer MD PCP - General Family Medicine 08/02/22 12/27/24 Mary Anne Mccormack APRN [address] [place] [address] PCP - General Family Medicine 12/29/24 Jazmin Bell PA-C [address] [place] [address] Physician Well Digger 04/23/24 12/27/24 documented as of this encounter
--- OUTSIDE RECORDS SUMMARY | 2025-03-29 12:43 | XMS_ITS | Encounter Summary ---
Author Organization [employer] ([place], [place], [place], [place]) Address [address] [place] [address] Care Team Providers Care Farmworker Bulbs Name Role Phone Lester Shaffer MD Primary Care Provider [phone] Jazmin Bell PA-C Unavailable [phone] Mary Anne Mccormack APRN Primary Care Provider + Encounter Details Date Type Department Care Team (Late Contact Info) Description 09/22/2022 Outside Orders [facility] Admitting [address] [place] [address] Lester Shaffer MD [address] [place] [address] Social History Tobacco Use Types Packs/Day Years Used Date Smoking Tobacco: Never Smokeless Tobacco: Never Alcohol Use Standard Drinks/Week Comments Yes 0 (1 standard drink = 0.6 oz pur e alcohol) Sex and Gender Information Value Date Recorded Sex Assigned at Not on file Legal Sex Male 5:30 PM CDT Gender Identity Not on file Sexual Orientation Not on file COVID-19 Exposure Response Date Recorded In the last 10 days, have yo u been in contact with someone who was confirmed or suspected to have Coronavirus/COVID-19? No / Unsure 09/21/2022 10:21 AM EST documented as of this encounter Plan of Treatment Upcoming Encounters Date Type Department Care Team (Late Contact Info) Description 04/02/2025 2:00 PM EDT Office Visit [facility] Primary Care - [facility] [address] [place] [address] Mary Anne Mccormack REGIONAL MEDICAL DIRECTOR [address] [place] [address] 05/20/2025 3:30 PM EDT Office Visit [facility] Orthoped[facility] - [place] [address] [place] [phone] Jazmin Bell PA-C [address] [place] [address] documented as of this encounter Visit Diagnoses Not on filedocumented in this encounter Care Teams Farmworker Bulbs Relationship Specialty Start Date End Date Lester Shaffer MD PCP - General Family Medicine 08/02/22 12/27/24 Mary Anne Mccormack APRN [address] [place] [address] PCP - General Family Medicine 12/29/24 Jazmin Bell PA-C [address] [place] [address] Physician Stabber 04/23/24 12/27/24 documented as of this encounter
--- OUTSIDE RECORDS SUMMARY | 2025-03-29 12:43 | XMS_ITS | Encounter Summary ---
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, implant and graft, sequela Effusion, right foot Ligia Walton DPM [address] [place] [address] [place] [address] Phone: tel: fax: Referral ID Status Reason Start Date Expiration Date V isits Requested Visits Authorized [id number] Closed Specialty Services Required 07/07/2024 10/05/2024 15 15 Encounter Details Date Type Department Care Team (Latest Contact Info) Description 07/06/2024 Outside Orders [facility] OP Physical Therapy [address] [place] [address] Ligia Walton DPM [address] [facility] [address] [place] [address] Pseudarthrosis after fusion or arthrodesis (Primary Dx) Social History Tobacco Use Types [...] Date Imer rded Speak language other than Maldivian at home Not on file 10/02/2023 Want [...] Description 04/02/2025 2:00 PM EDT Office Visit [facility] Primary Care - [facility] [address] [place] [address] Mary Anne Mccormack, WORKERS' COMPENSATION MAGISTRATE [address] [place] [address] 05/20/2025 3:30 PM EDT Office Visit [facility] Orthopedics - [address] [phone] Jazmin Bell PA-C [address] [place] [address] Scheduled Referrals Name Type Priority Associated Diagnoses Orde r Schedule AMB REFERRAL TO PHYSICAL THERAPY EVALUATE, TREAT AND PLAN OF CARE Outpatient Referral Routine Pseudarthrosis after fusion or arthrodesis Expected: 07/06/2024, Expires: 07/06/2025 documented as of this encounter Visit Diagnoses Diagnosis Pseudarthrosis after fusion or arthrodesis- Primary Arthrodesis status documented in this encounter Care Teams Dietetic Tech Relationship Specialty Start Date End Date Lester Shaffer MD PCP - General Family Medicine 08/02/22 12/27/24 Mary Anne Mccormack, NICCI [address] [place] [address] PCP - General Family Medicine 12/29/24 Jazmin Bell PA-C [address] [place] [address] Physician Career Development Associate 04/23/24 12/27/24 documented as of this encounter
--- OUTSIDE RECORDS SUMMARY | 2025-03-29 12:43 | XMS_ITS | Encounter Summary ---
Author Organization [employer] ([place], [place], [place], [place]) Address [address] [place] [address] Care Team Providers Care Seismograph Shooter Name Role Phone Lester Shaffer MD Primary Care Provider [phone] Jazmin BellC Unavailable [phone] Mary Anne Mccormack APRN Primary Care Provider + Reason for Referral * Other (Routine) - Closed Specialty Diagnoses / Procedures Referred By Contac t Referred To Contact Diagnoses Chalasia of lower esophageal sphincter Pure hypercholesterolemia Insomnia with sleep apnea Procedures ECG 12 lead Buddy Daniel DPM [address] [id number] Phone: tel: fax: Referral ID Status Reason Start Date Expiration Date Visits Re quested Visits Authorized [id number] Closed 12/07/2022 06/05/2023 1 1 * Diagnostic X-Ray (Routine) - Closed Specialty Diagnoses / Procedures Referred By Maria Luisa parra Referred To Contact Diagnoses Chalasia of lower esophageal sphincter Pure hypercholesterolemia Insomnia with sleep apnea Procedures X-ray chest PA and lateral Buddy Daniel DPM [address] [place] [address] Phone: tel: fax: Referral ID Status Reason Start Date Expiration Date Visits Re quested Visits Authorized [id number] Closed 12/07/2022 06/05/2023 1 1 Encounter Details Date Type Department Care Team (Latest Contact Info) Description 11/19/2022 Outside Orders [facility] Admitting [address] [place] [address] Buddy Daniel DPM [address] [place] [address] Insomnia with sleep apnea (Primary Dx); Chalasia of lower esophageal sphincter; Pure hypercholesterolemia Social History Tobacco Use Types Packs/Day Years [...] Description 04/02/2025 2:00 PM EDT Office Visit [facility] - [facility] [address] [place] [phone] Mary Anne Mccormack, AUDIO VISUAL AIDS DIRECTOR [address] [place] [address] 05/20/2025 3:30 PM EDT Office Visit [facility] Orthoped[facility] - [address] [phone] Jazmin Bell PA-C [address] [place] [address] documented as of this encounter Procedures Procedure Name Priority Date/Time Associated Diagnosis Comments CBC W/ AUTO DIFF Routine 12/07/2022 4:07 PM EDT Chalasia of lower esophageal sphincter Pure hypercholesterolem ia Insomnia with sleep apnea COMPREHENSIVE METABOLIC PANEL Routine 12/07/2022 4:07 PM EDT Chalasia of lower esophageal sphincter Pure hypercholesterolem ia Insomnia with sleep apnea documented in this encounter Results * ECG 12 lead (12/07/2022 4:59 PM EDT) VENTRICULAR RATE EKG/MIN 63 BPM GE MUSE ATRIAL RATE (MCT) 63 BPM GE MUSE GA Interval 174 ms GE MUSE QRS-INTERVAL (MSEC) 100 ms GE MUSE QT Interval 438 ms GE MUSE QTC Interval 448 ms GE MUSE P [place] 58 degrees GE MUSE R AXIS (MCT) 24 degrees GE MUSE T Wave [place] 39 degrees GE MUSE Shanks Diagnosis Normal sinus rhythm Incomplete right bundle branch block Nonspecific ST abnormality Abnormal ECG No previous ECGs available Confirmed by Osmany KENNEDY RICHARD ([id number]) on 12/08/2022 12:35:31 PM GE MUSE 12/07/2022 4:59 PM EDT 12/08/2022 12:35 PM EDT Buddy Daniel DP ECG ORDERABLES Final Result GE MUSE * (ABNORMAL) Comprehensive metabolic panel (12/07/2022 4:07 PM EDT) Sodium 141 136 - 145 meq/L 12/07/2022 4:34 PM EDT [facility] Potassium 4.2 3.5 - 5.1 meq/L 12/07/2022 4:34 PM EDT [facility] Chloride 104 98 - 107 meq/L 12/07/2022 4:34 PM EDT [facility] CO2 29 21 - 32 meq/L 12/07/2022 4:34 PM EDT [facility] Calcium 8.4(L) 8.5 - 10.1 mg/dL 12/07/2022 4:34 PM EDT [facility] Glucose 110(H) 70 - 99 mg/dL 12/07/2022 4:34 PM EDT [facility] BUN 21(H) 7 - 18 mg/dL 12/07/2022 4:34 PM EDT [facility] Creatinine 1.34(H) 0.70 - 1.20 mg/dL 12/07/2022 4:34 PM EDT [facility] BUN/Creatinine 16 12/07/2022 4:34 PM EDT [facility] Albumin 3.8 3.4 - 5.0 g/dL 12/07/2022 4:34 PM EDT [facility] Alkaline Phosphatase 64 46 - 116 U/L 12/07/2022 4:34 PM EDT [facility] ALT 42 12 - 78 U/L 12/07/2022 4:34 PM EDT [facility] AST 31 15 - 37 U/L 12/07/2022 4:34 PM T [facility] Total Bilirubin 0.4 0.2 - 1.0 mg/dL 12/07/2022 4:34 PM [facility] Protein, Total 7.9 6.4 - 8.2 gm/dL 12/07/2022 4:34 PM EDT [facility] Anion Gap 12 12/07/2022 4:34 PM [facility] A/G Ratio 0.9 12/07/2022 4:34 PM T [facility] Globulin 4.1 g/dL 12/07/2022 4:34 PM T [facility] Osmolality Calc 284.9 4:34 PM [facility] eGFR (mL/min/1.73m2) >60 >=60 mL/min/1.7 3m2 12/07/2022 4:34 PM T [facility] Comment:ESTIMATED GFR IS NOT ACCURATE CREATININE CLEARANCE IN PREDICTING GLOMERULAR FILTRATION RATE. ESTIMATED GFR IS NOT APPLICABLE FOR DIALYSIS PATIENTS. eGFR Non (mL/min/1.73m2) 60 >=60 mL/min/1.7 3m2 12/07/2022 4:34 PM T [facility] Comment:ESTIMATED GFR IS NOT ACCURATE CREATININE CLEARANCE IN PREDICTING GLOMERULAR FILTRATION RATE. ESTIMATED GFR IS NOT APPLICABLE FOR DIALYSIS PATIENTS. Blood Venipuncture / Unknown 12/07/2022 4:07 PM EDT 12/07/2022 4:08 PM EDT us Buddy Daniel DPM LAB BLOOD ORDERABLES Final Resul t [facility] [address] [place] [address], [facility] [phone] * (ABNORMAL) CBC with automated diff (12/07/2022 4:07 PM EDT) WBC 5.0 4.8 - 10.8 K/ L 12/07/2022 4:15 PM EDT [facility] RBC 4.59 3.80 - 5.20 M/ L 12/07/2022 4:15 PM EDT [facility] Hemoglobin 14.1 12.8 - 17.4 GM/DL 12/07/2022 4:15 PM EDT [facility] Hematocrit 40.3 39.0 - 51.0 % 12/07/2022 4:15 PM EDT [facility] MCV 88 81 - 101 fL 12/07/2022 4:15 PM EDT [facility] MCH 30.7 27.0 - 34.0 pg 12/07/2022 4:15 PM EDT [facility] MCHC 35.0 32.0 - 36.0 GM/DL 12/07/2022 4:15 PM EDT [facility] RDW 12.6 11.5 - 14.5 % 12/07/2022 4:15 PM EDT [facility] Platelets 258 150 - 400 K/CU MM 12/07/2022 4:15 PM EDT [facility] MPV 10.3 9.4 - 12.4 fL 12/07/2022 4:15 PM EDT [facility] Nucleated Red Blood Cell 0.0 0 - 0.2 % 12/07/2022 4:15 PM EDT [facility] % Neutros 48 37 - 80 % 12/07/2022 4:15 PM EDT [facility] % Lymphs 38 10 - 50 % 12/07/2022 4:15 PM EDT [facility] % Monos 8 5 - 13 % 12/07/2022 4:15 PM EDT [facility] % Eos 4 0 - 7 % 12/07/2022 4:15 PM EDT [facility] % Baso 1 0 - 3 % 12/07/2022 4:15 PM EDT [facility] NRBC Absolute 0.00 0 - 0.12 K/ul 12/07/2022 4:15 PM EDT [facility] # Neutros 2.42 2.00 - 6.90 K/ L 12/07/2022 4:15 PM EDT [facility] # Lymphs 1.90 0.60 - 3.40 K/ L 12/07/2022 4:15 PM EDT [facility] # Monos 0.42 0.00 - 0.90 K/ L 12/07/2022 4:15 PM EDT [facility] # Eos 0.22 0.00 - 0.70 K/ L 12/07/2022 4:15 PM EDT [facility] # Baso 0.03 0.00 - 0.20 K/ L 12/07/2022 4:15 PM EDT [facility] Immature Granulocytes-Re lative 0.20(H) 0.00 - 0.00 % 12/07/2022 4:15 PM EDT [facility] # IG 0.01(H) 0.00 - 0.00 K/uL 12/07/2022 4:15 PM EDT [facility] Blood Venipuncture / Unknown 12/07/2022 4:07 PM EDT 12/07/2022 4:08 PM EDT Narrative [facility] - 12/07/2022 4:15 PM EDT When CBC w/ Auto Diff is ordered the lab will add a Manual Differential as a quality check at no additional charge if: Lymphocytes greater than seventy five percent with normal or increased WBC Monocytes greater than Fifteen percent Basophil greater than four percent Bands >10% or several immature myeloids are seen on scan Blast? Flag noted Atypical Lymph flag noted us Buddy Mccoyalmaz [facility] LAB BLOOD ORDERABLES Final Resul t [facility] [address] [place] [address], [facility] [phone] * X-ray chest PA and lateral (12/07/2022 4:00 PM EDT) Anatomical Region Laterality Modality Chest X-Ray 12/07/2022 4:34 PM EDT Impressions 12/07/2022 4:37 PM EDT Prominent interstitial changes are likely secondary to vascular congestion. Continued follow-up is recommended. Images reviewed, interpreted, and dictated by Dr. Shonna Fairchild. Transcribed by Nabila Bach (Bobby). Narrative 12/07/2022 4:37 PM EDT TWO-VIEW CHEST 12/07/2022 3:55 PM HISTORY: High blood pressure COMPARISON: None. FINDINGS: The heart is mildly enlarged. The mediastinum is unremarkable. Prominent perihilar interstitial changes are noted, likely secondary to vascular congestion. There is no pneumothorax. The osseous structures are unremarkable. Procedure Note Marshall Fairchild MD - 12/07/2022 TWO-VIEW CHEST 12/07/2022 3:55 PM HISTORY: High blood pressure COMPARISON: None. FINDINGS: The heart is mildly enlarged. The mediastinum is unremarkable. Prominent perihilar interstitial changes are noted, likely secondary to vascular congestion. There is no pneumothorax. The osseous structures are unremarkable. IMPRESSION: Prominent interstitial changes are likely secondary to vascular congestion. Continued follow-up is recommended. Images reviewed, interpreted, and dictated by Dr. Shonna Fairchild. Transcribed by Nabila Bach (R). us Buddy Mccoyalmaz [facility]AGING ORDERABLE S Final Result documented in this encounter Visit Diagnoses Diagnosis Insomnia with sleep apnea- Primary Insomnia with sleep apnea, unspecified Chalasia of lower esophageal sphincter Esophageal reflux Pure hypercholesterolemia Chalasia of lower esophageal sphincter Esophageal reflux Pure hypercholesterolemia Insomnia with sleep apnea Insomnia with sleep apnea, unspecified documented in this encounter Care Teams Seismograph Shooter Relationship Specialty Start Date End Date Lester Shaffer MD PCP - General Family Medicine 08/02/22 12/27/24 Mary Anne Mccormack, NICCI [address] [place] [address] PCP - General Family Medicine 12/29/24 Jazmin Bell PA-C [address] [place] [phone] Physician Payroll Master 04/23/24 12/27/24 documented as of this encounter
== END 2025-03-29 23:59 | disposition home or self-care (01) ==
LOC: RAD 12:28
PROVIDERS: Visit Provider Podiatrist
DX: M96.0 Pseudarthrosis after fusion or arthrodesis (principal); M79.671 Pain in right foot; T84.9XXA Unspecified complication of internal orthopedic prosthetic device, implant and graft, initial encounter
CPT/HCPCS: 73630